=== PATIENT | female | born 1935 | race Caucasian/White ===

== ENCOUNTER 2024-08-20 16:17 | Outpatient (CLI) | payer MEDICARE, SELFPAY ==
[2024-08-20 16:52] LABS: Alanine Aminotransferase 7 U/L (0-33); Albumin Level 4.1 g/dL (3.5-5.2); Alkaline Phosphatase 84 U/L (35-105); Anion Gap 15.8 (5-19); Aspartate Amino Transferase 16 U/L (0-32); Blood Urea Nitrogen 26 mg/dL (8-23); Calcium 9.7 mg/dL (8.5-10.5); Carbon Dioxide 27 mmol/L (22-29); Chloride 105 mmol/L (98-107); Globulin 2.6 g/dL (1.3-4.6); Glucose 112 mg/dL (65-115); Osmolality Calculated 304 mOsm/kg (285-295); Potassium 3.8 mmol/L (3.5-5.1); Sodium 144 mmol/L (136-145); Total Bilirubin 0.2 mg/dL (0.15-1.2); Total Protein 6.7 g/dL (6.6-8.7)
== END 2024-08-20 16:18 | disposition home or self-care (01) ==
PROVIDERS: Visit Provider Family Medicine
DX: I10 Essential (primary) hypertension (principal)
CPT/HCPCS: 80053

== ENCOUNTER 2024-09-23 14:42 | Outpatient (CLI) | payer MEDICARE, SELFPAY ==
[2024-09-23 14:55] LABS: Bilirubin Urine Negative (Negative); Blood Urine Negative (Negative); Glucose Urine UA Negative (Normal); Ketones Urine Negative (Negative); Leukocyte Esterase Urine 2+ (Negative); Nitrate Urine Positive (Negative); Protein Urine Trace (Negative); Specific Gravity, Urine 1.015 (1.005-1.030); Urine Appearance Turbid (CLEAR); Urine Color Yellow (Yellow)
[2024-09-23 14:58] LABS: Add Urine Microscopic? YES; Bacteria Urine 4+ /hpf; Hyaline Casts Urine 1.65 /lpf; RBC Urine 0-2 /hpf (0-2); Squamous Epithelial Cell Urine 0-5 /hpf (0-5); WBC Urine >100 /hpf (0-5)
[2024-09-23 15:01] LABS: Add Urine Culture? No
== END 2024-09-23 14:43 | disposition home or self-care (01) ==
LOC: LAB 14:43
PROVIDERS: Visit Provider Family Medicine
DX: N39.0 Urinary tract infection, site not specified (principal)
CPT/HCPCS: 81001; 87077; 87086; 87186

== ENCOUNTER 2024-11-16 19:16 | Outpatient (CLI) | payer MEDICARE, SELFPAY ==
[2024-11-16 19:39] LABS: Bilirubin Urine Negative (Negative); Blood Urine Negative (Negative); Glucose Urine UA Negative (Normal); Ketones Urine Negative (Negative); Leukocyte Esterase Urine Negative (Negative); Nitrate Urine Positive (Negative); Protein Urine Negative (Negative); Urine Appearance Cloudy (CLEAR); Urine Color Yellow (Yellow)
[2024-11-16 19:48] LABS: Add Urine Microscopic? YES; Bacteria Urine 4+ /hpf; Hyaline Casts Urine 2.46 /lpf; Squamous Epithelial Cell Urine 0-5 /hpf (0-5)
[2024-11-16 19:58] LABS: UA Slide Review UA Slide Review Perf
[2024-11-16 19:59] LABS: Add Urine Culture? No
== END 2024-11-16 19:17 | disposition home or self-care (01) ==
PROVIDERS: PCP Family Medicine; Visit Provider Family Medicine
DX: N39.0 Urinary tract infection, site not specified (principal)
CPT/HCPCS: 81001; 87086

== ENCOUNTER 2024-11-30 17:09 | Outpatient (CLI) | payer MEDICARE, SELFPAY ==
[2024-11-30 18:00] LABS: Bilirubin Urine Negative (Negative); Blood Urine Negative (Negative); Glucose Urine UA Negative (Normal); Ketones Urine Trace (Negative); Leukocyte Esterase Urine Negative (Negative); Nitrate Urine Negative (Negative); Protein Urine 1+ (Negative); Specific Gravity, Urine 1.027 (1.005-1.030); Urine Appearance Turbid (CLEAR); Urine Color Yellow (Yellow)
[2024-11-30 18:07] LABS: Add Urine Microscopic? YES; Bacteria Urine 4+ /hpf; Hyaline Casts Urine 10.73 /lpf; Squamous Epithelial Cell Urine >100 /hpf (0-5)
[2024-11-30 18:21] LABS: Add Urine Culture? Yes; UA Slide Review UA Slide Review Perf
== END 2024-11-30 17:10 | disposition home or self-care (01) ==
PROVIDERS: PCP Family Medicine; Visit Provider Family Medicine
DX: N39.0 Urinary tract infection, site not specified (principal)
CPT/HCPCS: 81001; 87086

== ENCOUNTER 2024-12-07 08:46 | Outpatient (CLI) | payer MEDICARE, SELFPAY ==
[2024-12-07 09:03] LABS: Bilirubin Urine Negative (Negative); Blood Urine Negative (Negative); Glucose Urine UA Negative (Normal); Ketones Urine Trace (Negative); Leukocyte Esterase Urine Negative (Negative); Nitrate Urine Negative (Negative); Protein Urine Negative (Negative); Specific Gravity, Urine 1.022 (1.005-1.030); Urine Appearance Clear (CLEAR); Urine Color Yellow (Yellow); pH Urine 7.5 (5-7)
[2024-12-07 09:08] LABS: Add Urine Microscopic? YES; Bacteria Urine Trace /hpf; RBC Urine 0-2 /hpf (0-2); WBC Urine 0-5 /hpf (0-5)
== END 2024-12-07 08:47 | disposition home or self-care (01) ==
PROVIDERS: PCP Family Medicine; Visit Provider Family Medicine
DX: N39.0 Urinary tract infection, site not specified (principal)
CPT/HCPCS: 81001; 87086

== ENCOUNTER 2024-12-31 14:33 | Emergency (ER) | payer MEDICARE, OTHER, SELFPAY ==
[2024-12-31 14:35] VITALS: BP 177/86; PULSE 72; RESP 16; TEMP 36.5; O2SAT 96
--- NOTE | 2024-12-31 14:37 | CTR_ITS ---
PROCEDURE INFORMATION: Exam: CT Head Without Contrast Exam date and time: 12/31/2024 3:14 PM Age: 89 years old Clinical indication: Altered mental status/memory loss; Additional info: Encephalopathy, altered mental status TECHNIQUE: Imaging protocol: Computed tomography of the head without contrast. Radiation optimization: All CT scans at this facility use at least one of these dose optimization techniques: automated exposure control; mA and/or kV adjustment per patient size (includes targeted exams where dose is matched to clinical indication); or iterative reconstruction. COMPARISON: No relevant prior studies available. RADIATION DOSE METRICS: Total DLP (mGy-cm): 821.68 FINDINGS: Brain: No intracranial hemorrhage. No mass effect, edema or midline shift. There are vague areas of decreased attenuation within the periventricular white matter likely secondary to chronic microvascular changes. Mild age related cerebral volume loss resulting in prominence of cortical sulci. Asymmetrically widened subarachnoid space within the right basilar cisterns Lokelma longstanding and output 3 of clinical significance. Cerebral ventricles: Unremarkable for age and degree of cerebral volume loss. Paranasal sinuses: Visualized sinuses are unremarkable. No fluid levels. Mastoid air cells: Visualized mastoid air cells are well aerated. Bones/joints: Unremarkable. No acute fracture. Soft tissues: Unremarkable. CT/CT head wo con* [id number] IMPRESSION: No acute intracranial abnormality.
--- NOTE | 2024-12-31 14:38 | XR_ITS ---
WS: [id number] XR chest 1V portable [id number] REASON FOR EXAM: Weakness FINDINGS: No previous examination for comparison. Patient significantly rotated to the left. Heart tortuosity and mild ectasia of the thoracic aorta with calcification of the aortic arch. The heart is at the upper limits of normal in size. Masslike density with some lucency projected over the cardiac silhouette to the left of the spine. Presumably a hiatal or paraesophageal gastric hernia. No acute pulmonary parenchymal or pleural abnormality. Mild degenerative spondylosis in the thoracic spine for age. XR/XR chest 1V portable [id number] IMPRESSION: No acute chest abnormality.
--- NOTE | 2024-12-31 14:40 | ECG_ITS ---
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 Measurements Intervals [place] Rate: 70 P: 39 OR: 179 QRS: 52 QRSD: 85 T: 45 QT: 383 QTc: 415 Interpretive Statements SINUS RHYTHM NONSPECIFIC T-WAVE ABNORMALITY No previous ECG available for comparison Electronically Signed On 01-01-2025 18:01:31 EGG SORTER by Tesfaye Simmons M.D. [id number]
[2024-12-31 14:50] LABS: Basophils % 0.5 %; Eosinophils # 0.1 10^3/uL (0.0-0.8); Hematocrit 40.5 % (36-47); Lymphocytes # 2.6 10^3/uL (0.8-4.8); Lymphocytes % 43.9 %; Mean Corpuscular HGB Conc 31.4 g/dL (30-55); Mean Corpuscular Hemoglobin 29.8 pg (27-33); Mean Corpuscular Volume 95.1 fl (85-98); Mean Platelet Volume 10.4 fL (7.4-10.4); Monocytes # 0.4 10^3/uL (0.2-0.9); Monocytes % 6.4 %; Neutrophils % 46.9 %; Nucleated Red Blood Cells % 0 %; Platelet Count 218 10^3/cmm (157-399); Red Blood Count 4.26 10^6/uL (3.85-5.65); Red Cell Distribution Width 13.9 % (12.1-15.1); White Blood Count 5.97 10^3/uL (3.29-11.43)
[2024-12-31 15:05] LABS: Lactic Sepsis W/Reflex 1.2 mmol/L (0.5-2.2)
--- NOTE | 2024-12-31 15:17 | W.ED.AMS ---
HPI - Altered Mental Status General: Chief Complaint: Altered Mental Status Stated Complaint: ams Time Seen by Provider: 12/31/24 14:34 History of Present Illness: 89-year-old female with a history of advanced dementia and hypertension and chronic anticoagulation on Eliquis (I do not see any indication for this in her assisted documentation diagnoses), who presents to the emergency room apparently with some altered mental status. She seems alert. No focal motor deficits. She is complaining of a headache. Blood pressure slightly elevated. No abdominal pain. No chest pain. Related Data Home Medications ?Medication ?Instructions ?Recorded ?Confirmed acetaminophen 500 mg tablet 1,000 mg PO Q8H PRN Pain 12/31/24 12/31/24 apixaban 5 mg tablet (Eliquis) 5 mg PO BID 12/31/24 12/31/24 carbidopa 10 mg-levodopa 100 mg 1 tab PO TID 12/31/24 12/31/24 tablet hydrocodone 5 mg-acetaminophen 325 1 tab PO Q8H PRN Pain 12/31/24 12/31/24 mg tablet nystatin 100,000 unit/gram topical 1 applic topical Q4H 12/31/24 12/31/24 powder olanzapine 2.5 mg tablet 2.5 mg PO DAILY 12/31/24 12/31/24 potassium chloride 20 mEq 20 meq PO DAILY 12/31/24 12/31/24 tablet,extended release triamcinolone acetonide 0.1 % 1 applic topical BID 12/31/24 12/31/24 topical cream venlafaxine 75 mg tablet 75 mg PO BID 12/31/24 12/31/24 Allergies Allergy/AdvReac Type Severity Reaction Status Date / Time codeine Allergy Unknown Verified 12/31/24 14:41 Review of Systems Narrative: Constitutional symptoms: Negative except as documented in HPI. Skin symptoms: Negative except as documented in HPI. Eye symptoms: Negative except as documented in HPI. ENMT symptoms: Negative except as documented in HPI. Respiratory symptoms: Negative except as documented in HPI. Cardiovascular symptoms: Negative except as documented in HPI. Gastrointestinal symptoms: Negative except as documented in HPI. Genitourinary symptoms: Negative except as documented in HPI. Musculoskeletal symptoms: Negative except as documented in HPI. Neurologic symptoms: Negative except as documented in HPI. Psychiatric symptoms: Negative except as documented in HPI. Endocrine symptoms: Negative except as documented in HPI. Physical Exam Narrative: General: Alert, no acute distress. Skin: Warm, dry. Head: Normocephalic, atraumatic. Neck: Supple, trachea midline. Eye: Extraocular movements are intact. Ears, nose, mouth and throat: mucosa moist. Cardiovascular: Regular, Normal peripheral perfusion. Respiratory: Lungs are clear to auscultation, respirations are non-labored, breath sounds are equal, Symmetrical chest wall expansion. Gastrointestinal: Soft, Nontender, Non distended Musculoskeletal: Normal ROM, no deformity. Neurological: Alert and oriented, No focal neurological deficit observed. Psychiatric: Cooperative, appropriate mood & affect. Course Vital Signs: Vital signs: Vital Signs Temperature 97.7 F 12/31/24 14:35 Pulse Rate 75 12/31/24 17:30 Respiratory Rate 18 12/31/24 17:30 Blood Pressure 173/95 12/31/24 19:03 Pulse Oximetry 96 12/31/24 17:30 Oxygen Delivery Me thod Room Air 12/31/24 17:30 MDM - Altered Mental Status Medical Decision Making Medical decision making: Differential diagnosis including but not limited to and based on the above HPI, review of systems and physical exam: In this patient with altered mental status: Stroke. Hypoglycemia. Metabolic encephalopathy. Infections such as pneumonia, urinary tract infection, Covid-19, Influenza. Electrolyte abnormalities such as hypernatremia. Renal failure / uremia. Hepatic encephalopathy. Hypoxemia. Hypercapnic respiratory failure. Psychosis. Drug or alcohol intoxication. Medication overdose. Orders placed to evaluate differential diagnosis based on the above differential, HPI and physical exam EKG: Time 1440. Rate 70. Normal sinus rhythm, No ST-T changes, no ectopy, normal HI & QRS intervals, This was reviewed and interpreted by myself the ER physician at 1450. Chest x-ray: No acute process. No infiltrate. No pneumothorax. This was reviewed and interpreted by myself the emergency room physician. I also reviewed the radiology report. CT head: No acute intracranial process. no intracranial hemorrhage, no evidence of infarct. no evidence of acute fracture.This was reviewed and interpreted by myself the ER physician. Lab Review: Laboratory results were reviewed and interpreted by myself the emergency room physician. No leukocytosis. No anemia. No renal failure. No urinary tract infection. Flu COVID and RSV are negative I reviewed the patient's medical record. Reexamination: Patient remained stable. No increased work of breathing. No altered mental status. No focal motor deficits. Family states she seems to be back at her baseline but may be sundowning a little bit at this point. Assessment and plan: Altered mental status ? Patient seems to have resolved. No acute findings. - Discharged home - Discussed plan with patient. Answered any questions. - Evaluation and treatment of this problem were appropriate in the emergency setting. Lab Data 12/31/24 14:15 12/31/24 18:[address] 12/31/24 14:37 IMPRESSION: No acute intracranial abnormality. Chest X-Ray 12/31/24 14:38 IMPRESSION: No acute chest abnormality. Laboratory Results WBC 5.97 10^3/uL (3.29-11.43) 12/31/24 14:15 RBC 4.26 10^6/uL (3.85-5.65) 12/31/24 14:15 Hgb 12.70 g/dL (11.27-16.99) 12/31/24 14:15 Hct 40.5 % (36-47) 12/31/24 14:15 MCV 95.1 fl (85-98) 12/31/24 14:15 MCH 29.8 pg (27-33) 12/31/24 14:15 MCHC 31.4 g/dL (30-55) 12/31/24 14:15 RDW 13.9 % (12.1-15.1) 12/31/24 14:15 Plt Count 218 10^3/cmm (157-399) 12/31/24 14:15 MPV 10.4 fL (7.4-10.4) 12/31/24 14:15 Neut % (Auto) 46.9 % 12/31/24 14:15 Lymph % (Auto) 43.9 % 12/31/24 14:15 [place] % (Auto) 6.4 % 12/31/24 14:15 Eos % (Auto) 2.0 % 12/31/24 14:15 Baso % (Auto) 0.5 % 12/31/24 14:15 Neut # (Auto) 2.80 10^3/uL (1.8-7.7) 12/31/24 14:15 Lymph # (Auto) 2.6 10^3/uL (0.8-4.8) 12/31/24 14:15 [place] # (Auto) 0.4 10^3/uL (0.2-0.9) 12/31/24 14:15 Eos # (Auto) 0.1 10^3/uL (0.0-0.8) 12/31/24 14:15 Baso # (Auto) 0.0 10^3/uL (0.0-0.1) 12/31/24 14:15 Nucleated RBC % (auto) 0 % 12/31/24 14:15 Nucleated RBCs # 0.0 /100WBC 12/31/24 14:15 Sodium 140 mmol/L (136-145) 12/31/24 18:32 Potassium 3.3 mmol/L (3.5-5.1) L 12/31/24 18:32 Chloride 101 mmol/L (98-107) 12/31/24 18:32 Carbon Dioxide 27 mmol/L (22-29) 12/31/24 18:32 Anion Gap 15.3 (5-19) 12/31/24 18:32 BUN 16 mg/dL (8-23) 12/31/24 18:32 Creatinine 0.6 mg/dL (0.5-0.9) 12/31/24 18:32 GFR Calculation Not Reportable 12/31/24 18:32 Glucose 96 mg/dL (65-115) 12/31/24 18:32 Calculated Osmolality 291 mOsm/kg (285-295) 12/31/24 18:32 Lactic Acid 1.2 mmol/L (0.5-2.2) 12/31/24 14:15 Calcium 9.7 mg/dL (8.5-10.5) 12/31/24 18:32 Total Bilirubin 0.3 mg/dL (0.15-1.2) 12/31/24 18:32 AST 15 U/L (0-32) 12/31/24 18:32 ALT 8 U/L (0-33) 12/31/24 18:32 Alkaline Phosphatase 71 U/L (35-105) 12/31/24 18:32 C-Reactive Protein 3.0 mg/L (0.0-4.9) 12/31/24 14:15 Total Protein 7.1 g/dL (6.6-8.7) 12/31/24 18:32 Albumin 4.0 g/dL (3.5-5.2) 12/31/24 18:32 Globulin 3.1 g/dL (1.3-4.6) 12/31/24 18:32 Urine Color Yellow (Yellow) 12/31/24 15:50 Urine Appearance Clear (CLEAR) 12/31/24 15:50 Urine pH 7.5 (5-7) 12/31/24 15:50 Ur Specific [place] 1.005 (1.005-1.030) 12/31/24 15:50 Urine Protein Negative (Negative) 12/31/24 15:50 Urine Glucose (UA) Negative (Normal) 12/31/24 15:50 Urine Ketones Negative (Negative) 12/31/24 15:50 Urine Blood Negative (Negative) 12/31/24 15:50 Urine Nitrate Negative (Negative) 12/31/24 15:50 Urine Bilirubin Negative (Negative) 12/31/24 15:50 Urine Urobilinogen 0.2 mg/dL (Negative) 12/31/24 15:50 Ur Leukocyte Esterase Negative (Negative) 12/31/24 15:50 Urine RBC 0-2 /hpf (0-2) 12/31/24 15:50 Urine WBC 0-5 /hpf (0-5) 12/31/24 15:50 Ur Squamous Epith Cells 0-5 /hpf (0-5) 12/31/24 15:50 Amorphous Sediment Not Reportable 12/31/24 15:50 Urine Bacteria None seen /hpf (NONE) 12/31/24 15:50 Hyaline Casts 0-4 /lpf H 12/31/24 15:50 Influenza A (PCR) Negative (Negative) 12/31/24 15:45 Influenza Type B (PCR) Negative (Negative) 12/31/24 15:45 RSV (PCR) Negative (Negative) 12/31/24 15:45 SARS-CoV-2 (PCR) Negative (Negative) 12/31/24 15:45 All radiology interpretation(s) finalized by discharge Discharge Plan Discharge Patient Disposition: Home Clinical Impression: Altered mental status Condition: Stable Prescriptions: No Action venlafaxine 75 mg Tablet 75 mg PO BID hydrocodone-acetaminophen 5-325 mg Tablet 1 tab PO Q8H PRN (Reason: Pain) olanzapine 2.5 mg Tablet 2.5 mg PO DAILY acetaminophen 500 mg Tablet 1,000 mg PO Q8H PRN (Reason: Pain) triamcinolone acetonide 0.1 % Cream 1 applic TOPICAL BID Rx Instructions: apply a thin layer to affected area topically twice daily carbidopa-levodopa 10-100 mg Tablet 1 tab PO TID nystatin 100,000 unit/gram Powder 1 applic TOPICAL Q4H Rx Instructions: APPLY TO ABDOMINAL FOLD OR UNDERSIDE OF EACH BREAST EVERY 4 HOURS NEEDED FOR YEAST/REDNESS Eliquis 5 mg Tablet 5 mg PO BID potassium chloride 20 mEq Tablet Extended Release 20 meq PO DAILY Discharge Orders: Discharge ED (Routine); Ordered 12/31/24 Ordered By: Ingris Denis Referrals: Giuseppe Torres MD [Primary Care Provider] - Discharge Diet: Usual diet Discharge Activity: Increase activity as tolerated Patient Instructions: Altered Mental Status (ED), Opioid Safety, Pain Management Activity Restrictions/Additional Instructions: There are no acute findings on your workup to explain any kind of confusion. You appear to be back to your baseline. If anything worsens see your primary care provider or come back to the emergency room Thank you for choosing [facility] for your healthcare needs today. Please realize this is an emergency room and that we are providing you with a medical screening exam and this may not be complete and all inclusive of all the testing and or work up that you may need to determine your ailment or severity of your illness. You have been screened and evaluated and felt safe for discharge. Health conditions do change or evolve sometimes and as such it is important that you follow up with your Primary Doctor to be re checked, 3-5 days is a general good time frame for follow up. You are always welcome to return to the ED for re assessment if your symptoms are worsening or you have new concerns Print Language: [place] Coding Level of Care Code ED Ostomy Rn for Rachel Nelson
[2024-12-31 16:41] LABS: Bilirubin Urine Negative (Negative); Blood Urine Negative (Negative); Glucose Urine UA Negative (Normal); Ketones Urine Negative (Negative); Leukocyte Esterase Urine Negative (Negative); Nitrate Urine Negative (Negative); Protein Urine Negative (Negative); Specific Gravity, Urine 1.005 (1.005-1.030); Urine Appearance Clear (CLEAR); Urine Color Yellow (Yellow); Urobilinogen Urine 0.2 mg/dL (Negative); pH Urine 7.5 (5-7)
[2024-12-31 16:43] LABS: Bacteria Urine None Seen /hpf; Hyaline Casts Urine 0-4 /lpf; RBC Urine 0-2 /hpf (0-2); Squamous Epithelial Cell Urine 0-5 /hpf (0-5); WBC Urine 0-5 /hpf (0-5)
[2024-12-31 17:00] VITALS: BP 209/104
[2024-12-31 17:14] LABS: Influenza A NEGATIVE (Negative); Influenza B NEGATIVE (Negative); Respiratory Syncytial Virus Ce NEGATIVE (Negative); SARS-CoV-2 PCR NEGATIVE (Negative)
[2024-12-31 17:30] VITALS: BP 182/85; PULSE 75; RESP 18; O2SAT 96
[2024-12-31 18:00] VITALS: BP 178/99
[2024-12-31 19:00] LABS: Alanine Aminotransferase 8 U/L (0-33); Alkaline Phosphatase 71 U/L (35-105); Anion Gap 15.3 (5-19); Aspartate Amino Transferase 15 U/L (0-32); Blood Urea Nitrogen 16 mg/dL (8-23); Calcium 9.7 mg/dL (8.5-10.5); Carbon Dioxide 27 mmol/L (22-29); Chloride 101 mmol/L (98-107); Globulin 3.1 g/dL (1.3-4.6); Glucose 96 mg/dL (65-115); Osmolality Calculated 291 mOsm/kg (285-295); Potassium 3.3 mmol/L (3.5-5.1); Sodium 140 mmol/L (136-145); Total Bilirubin 0.3 mg/dL (0.15-1.2); Total Protein 7.1 g/dL (6.6-8.7)
[2024-12-31 19:03] VITALS: BP 173/95
[2024-12-31] MEDS: hyDRALAzine 20 mg/mL INJ 1 mL 10 MG IVP (19:08)
--- NOTE | 2024-12-31 19:14 | PC.NURSE ---
fpc update fpc called for an update at this time
[2024-12-31 20:59] VITALS: BP 160/80; PULSE 82; RESP 17; O2SAT 98
== END 2024-12-31 20:00 | disposition home or self-care (01) ==
PROVIDERS: Emergency Provider Emergency Medicine; PCP Family Medicine
DX: R41.82 Altered mental status, unspecified (principal); Z11.52 Encounter for screening for COVID-19; Z79.01 Long term (current) use of anticoagulants
CPT/HCPCS: 36415; 70450; 71045; 80053; 81001; 83605; 85025; 86140; 87040; 87637; 93005; 96374; 99285; J0360

== ENCOUNTER 2025-01-14 10:45 | Emergency (ER) | payer MEDICARE, SELFPAY ==
--- NOTE | 2025-01-14 10:46 | CTR_ITS ---
PROCEDURE INFORMATION: Exam: CT Head Without Contrast Exam date and time: 01/14/2025 11:31 AM Age: 89 years old Clinical indication: Injury or trauma; Blunt trauma (contusions or hematomas); Injury details: Fall; Head/neck pain; Hematoma to RT supraorbital area; AMS; Lt side body movement TECHNIQUE: Imaging protocol: Computed tomography of the head without contrast. Radiation optimization: All CT scans at this facility use at least one of these dose optimization techniques: automated exposure control; mA and/or kV adjustment per patient size (includes targeted exams where dose is matched to clinical indication); or iterative reconstruction. COMPARISON: CT head wo con* [id number] 12/31/2024 3:14 PM RADIATION DOSE METRICS: Total DLP (mGy-cm): 952.38 FINDINGS: Brain: No acute intracranial hemorrhage or abnormal intracranial mass effect is identified. No subdural collections are seen. There is generalized atrophy and there are chronic appearing small-vessel ischemic changes involving both cerebral hemispheres. Cerebral ventricles: The ventricles are stable size and position compared to 12/31/2024. No midline shift. Paranasal sinuses: Visualized portions of paranasal sinuses are well aerated. Mastoid air cells: Visualized portions of mastoid sinuses are not opacified. Bones: No obvious fracture of the cranium. Soft tissues: A right frontal supraorbital scalp hematoma is present. There is also a scalp hematoma at the vertex, immediately to the left of midline. CT/CT head wo con* [id number] IMPRESSION: No acute intracranial hemorrhage or mass effect.
--- NOTE | 2025-01-14 10:46 | CTR_ITS ---
PROCEDURE INFORMATION: Exam: CT Cervical Spine Without Contrast Exam date and time: 01/14/2025 11:35 AM Age: 89 years old Clinical indication: Injury or trauma; Blunt trauma; Injury details: Fall; Head/neck pain; Hematoma to RT supraorbital area; AMS; Lt side body movement TECHNIQUE: Imaging protocol: Computed tomography of the cervical spine without contrast. Radiation optimization: All CT scans at this facility use at least one of these dose optimization techniques: automated exposure control; mA and/or kV adjustment per patient size (includes targeted exams where dose is matched to clinical indication); or iterative reconstruction. COMPARISON: CT head wo con* [id number] 01/14/2025 11:31 AM RADIATION DOSE METRICS: Total DLP (mGy-cm): 952.38 FINDINGS: Bones: No fracture, malalignment or other acute abnormality is seen in the cervical spine. Chronic degenerative changes are present especially from C4-C7 with disc space narrowing and osteophytes. There is mild spinal stenosis at the C4-C5 and C5-C6 levels. Lungs: Lung apices are normal. Vasculature: Bilateral carotid artery calcification. Soft tissues: Unremarkable. CT/CT cervical spin wo con* [id number] IMPRESSION: No acute abnormality.
--- NOTE | 2025-01-14 10:47 | ECG_ITS ---
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 Measurements Intervals [place] Rate: 75 P: 38 [place]: 163 QRS: 75 QRSD: 85 T: 31 QT: 385 QTc: 432 Interpretive Statements SINUS RHYTHM NONSPECIFIC T-WAVE ABNORMALITY Compared to ECG 12/31/2024 14:40:25 No significant changes Electronically Signed On 01-15-2025 07:41:41 CDT by Tesfaey Simmons M.D. [id number]
--- NOTE | 2025-01-14 10:47 | W.ED.FALL ---
HPI - Fall General: Chief Complaint: Fall Stated Complaint: fall - head injury Time Seen by Provider: 01/14/25 10:46 History of Present Illness: 89-year-old female presents to the emergency room after ground-level mechanical fall at home. Patient has a history of Parkinson's she stumbled while coming urinary Denis she had fell she is also on anticoagulants she hit her head on a cabinet is a large hematoma at the hairline on the right side of her forehead she denies loss consciousness denies neck pain no vomiting. Associated symptoms-after fall: Denies abdominal pain, chest pain or neck pain Related Data Home Medications ?Medication ?Instructions ?Recorded ?Confirmed acetaminophen 500 mg tablet 1,000 mg PO Q8H PRN Pain 12/31/24 01/14/25 apixaban 5 mg tablet (Eliquis) 5 mg PO BID 12/31/24 01/14/25 carbidopa 10 mg-levodopa 100 mg 1 tab PO TID 12/31/24 01/14/25 tablet hydrocodone 5 mg-acetaminophen 325 1 tab PO Q8H PRN Pain 12/31/24 01/14/25 mg tablet nystatin 100,000 unit/gram topical 1 applic topical Q4H 12/31/24 01/14/25 powder olanzapine 2.5 mg tablet 2.5 mg PO DAILY 12/31/24 01/14/25 potassium chloride 20 mEq 20 meq PO DAILY 12/31/24 01/14/25 tablet,extended release triamcinolone acetonide 0.1 % 1 applic topical BID 12/31/24 01/14/25 topical cream venlafaxine 75 mg tablet 75 mg PO BID 12/31/24 01/14/25 Allergies Allergy/AdvReac Type Severity Reaction Status Date / Time codeine Allergy Unknown Verified 12/31/24 14:41 Review of Systems Const: Denies: fever(s) or chills Card: Denies: chest pain Resp: Denies: dyspnea GI: Denies: abdominal pain : Denies: dysuria, urinary frequency or urinary urgency Musc: Denies: neck pain or back pain Skin/Breast: Denies: rash Physical Exam Const: GENERAL APPEARANCE: cooperative ORIENTATION/CONSCIOUSNESS: Yes awake, Yes oriented to person, Yes oriented to place and Yes oriented to time HENMT: COMMON NORMALS: normocephalic and hearing grossly normal bilaterally HEAD & SCALP: normocephalic OTHER: Large hematoma at the hairline on the right forehead no lacerations Resp: COMMON NORMALS: normal respiratory effort, No retractions, No use of accessory muscles and clear to auscultation bilaterally AUSCULTATION: clear to auscultation bilaterally Cardio: COMMON NORMALS: regular rate, regular rhythm and No murmurs present (Cardio) RATE: regular rate RHYTHM: regular rhythm GI: COMMON NORMALS: Soft to palpation and No hepatosplenomegaly present AUSCULTATION: Yes normoactive bowel sounds PALPATION: Yes Soft to palpation, No Tenderness to palpation present (GI), No Guarding due to palpation present (GI) and Yes No hepatosplenomegaly present Extremity: COMMON NORMALS: normal to inspection, capillary refill normal, no clubbing, cyanosis or edema, no calf tenderness and no pedal edema Neuro: SENSORIUM/ORIENTATION: Yes oriented to person, Yes oriented to place and Yes oriented to time Skin: COMMON NORMALS: no rashes or lesions noted GENERAL SKIN EXAM: no rashes or lesions noted Course Vital Signs: Vital signs: Vital Signs Temperature 98.2 F 01/14/25 10:48 Pulse Rate 77 01/14/25 13:36 Respiratory Rate 16 01/14/25 13:36 Blood Pressure 185/94 01/14/25 13:36 Pulse Oximetry 98 01/14/25 13:36 Oxygen Delivery Me thod Room Air 01/14/25 10:55 MDM - Fall Medical Decision Making CT of the head and neck are negative for acute fracture will discharge patient home discussed that a lot of the swelling and blood in the skin will settle in and around the eye will be a lot of bruising and swelling may be difficult to open the eye. There [facility] follow-up with primary care Medical Records I reviewed the patient's medical records. Lab Data I reviewed the patient's lab results. 01/14/25 11:09 01/14/25 11:09 Radiology Impressions Cervical Spine CT 01/14/25 10:46 IMPRESSION: No acute abnormality. Head CT 01/14/25 10:46 IMPRESSION: No acute intracranial hemorrhage or mass effect. Laboratory Results WBC 5.27 10^3/uL (3.29-11.43) 01/14/25 11:09 RBC 3.97 10^6/uL (3.85-5.65) 01/14/25 11:09 Hgb 11.90 g/dL (11.27-16.99) 01/14/25 11:09 Hct 38.4 % (36-47) 01/14/25 11:09 MCV 96.7 fl (85-98) 01/14/25 11:09 MCH 30.0 pg (27-33) 01/14/25 11:09 MCHC 31.0 g/dL (30-55) 01/14/25 11:09 RDW 13.4 % (12.1-15.1) 01/14/25 11:09 Plt Count 228 10^3/cmm (157-399) 01/14/25 11:09 MPV 10.5 fL (7.4-10.4) H 01/14/25 11:09 Neut % (Auto) 53.9 % 01/14/25 11:09 Lymph % (Auto) 38.3 % 01/14/25 11:09 [place] % (Auto) 6.1 % 01/14/25 11:09 Eos % (Auto) 1.1 % 01/14/25 11:09 Baso % (Auto) 0.4 % 01/14/25 11:09 Neut # (Auto) 2.84 10^3/uL (1.8-7.7) 01/14/25 11:09 Lymph # (Auto) 2.0 10^3/uL (0.8-4.8) 01/14/25 11:09 [place] # (Auto) 0.3 10^3/uL (0.2-0.9) 01/14/25 11:09 Eos # (Auto) 0.1 10^3/uL (0.0-0.8) 01/14/25 11:09 Baso # (Auto) 0.0 10^3/uL (0.0-0.1) 01/14/25 11:09 Nucleated RBC % (auto) 0 % 01/14/25 11:09 Nucleated RBCs # 0.0 /100WBC 01/14/25 11:09 Sodium 139 mmol/L (136-145) 01/14/25 11:09 Potassium 3.7 mmol/L (3.5-5.1) 01/14/25 11:09 Chloride 104 mmol/L (98-107) 01/14/25 11:09 Carbon Dioxide 24 mmol/L (22-29) 01/14/25 11:09 Anion Gap 14.7 (5-19) 01/14/25 11:09 BUN 16 mg/dL (8-23) 01/14/25 11:09 Creatinine 0.8 mg/dL (0.5-0.9) 01/14/25 11:09 GFR Calculation Not Reportable 01/14/25 11:09 Glucose 101 mg/dL (65-115) 01/14/25 11:09 Calculated Osmolality 289 mOsm/kg (285-295) 01/14/25 11:09 Calcium 9.6 mg/dL (8.5-10.5) 01/14/25 11:09 Total Bilirubin 0.3 mg/dL (0.15-1.2) 01/14/25 11:09 AST 13 U/L (0-32) 01/14/25 11:09 ALT < 5 U/L (0-33) 01/14/25 11:09 Alkaline Phosphatase 68 U/L (35-105) 01/14/25 11:09 Total Protein 7.1 g/dL (6.6-8.7) 01/14/25 11:09 Albumin 3.7 g/dL (3.5-5.2) 01/14/25 11:09 Globulin 3.4 g/dL (1.3-4.6) 01/14/25 11:09 All radiology interpretation(s) finalized by discharge Discharge Plan Discharge Patient Disposition: Home Clinical Impression: Fall, Hematoma of frontal scalp Condition: Stable Prescriptions: No Action venlafaxine 75 mg Tablet 75 mg PO BID hydrocodone-acetaminophen 5-325 mg Tablet 1 tab PO Q8H PRN (Reason: Pain) olanzapine 2.5 mg Tablet 2.5 mg PO DAILY acetaminophen 500 mg Tablet 1,000 mg PO Q8H PRN (Reason: Pain) triamcinolone acetonide 0.1 % Cream 1 applic TOPICAL BID Rx Instructions: apply a thin layer to affected area topically twice daily carbidopa-levodopa 10-100 mg Tablet 1 tab PO TID nystatin 100,000 unit/gram Powder 1 applic TOPICAL Q4H Rx Instructions: APPLY TO ABDOMINAL FOLD OR UNDERSIDE OF EACH BREAST EVERY 4 HOURS NEEDED FOR YEAST/REDNESS Eliquis 5 mg Tablet 5 mg PO BID potassium chloride 20 mEq Tablet Extended Release 20 meq PO DAILY Discharge Orders: Discharge ED (Routine); Ordered 01/14/25 Ordered By: Michele Brown Referrals: Giuseppe Torres MD [Primary Care Provider] - Discharge Diet: Usual diet Discharge Activity: Increase activity as tolerated Patient Instructions: Opioid Safety, Pain Management Activity Restrictions/Additional Instructions: Thank you for choosing [facility] for your healthcare needs today. It is very important that you follow up as instructed or that you return to the Emergency Department should you have concerns or if your condition changes or worsens in any way. You were seen in the emergency room after a fall. Scan of your head and neck were negative your laboratory test did not show significant abnormality. The bruising on the upper right side of your forehead will cause some swelling and bruising appearance in the eye as the blood settles this is not unusual for this type of injury. You can improve it some with applying ice or cold compresses to the area. Follow-up with your primary care doctor as needed. Print Language: Ugandan Coding Level of Care Code ED Hospice Case Manager for Rachel Nelson
[2025-01-14 10:48] VITALS: BP 152/85; PULSE 76; RESP 16; TEMP 36.8; O2SAT 92; BMI 28.3
[2025-01-14 10:55] VITALS: BP 152/85; PULSE 75; O2SAT 97
--- NOTE | 2025-01-14 11:05 | PC.PHAR ---
Pt is from [facility]
[2025-01-14 11:44] LABS: Basophils % 0.4 %; Eosinophils # 0.1 10^3/uL (0.0-0.8); Eosinophils % 1.1 %; Hematocrit 38.4 % (36-47); Lymphocytes % 38.3 %; Mean Corpuscular Volume 96.7 fl (85-98); Mean Platelet Volume 10.5 fL (7.4-10.4); Monocytes # 0.3 10^3/uL (0.2-0.9); Monocytes % 6.1 %; Neutrophils # 2.84 10^3/uL (1.8-7.7); Neutrophils % 53.9 %; Nucleated Red Blood Cells % 0 %; Platelet Count 228 10^3/cmm (157-399); Red Blood Count 3.97 10^6/uL (3.85-5.65); Red Cell Distribution Width 13.4 % (12.1-15.1); White Blood Count 5.27 10^3/uL (3.29-11.43)
[2025-01-14 12:00] LABS: Alanine Aminotransferase < 5 U/L (0-33); Albumin Level 3.7 g/dL (3.5-5.2); Alkaline Phosphatase 68 U/L (35-105); Aspartate Amino Transferase 13 U/L (0-32); Blood Urea Nitrogen 16 mg/dL (8-23); Calcium 9.6 mg/dL (8.5-10.5); Carbon Dioxide 24 mmol/L (22-29); Chloride 104 mmol/L (98-107); Creatinine Clr Calc Pharmacy 50.8724; Globulin 3.4 g/dL (1.3-4.6); Glucose 101 mg/dL (65-115); Osmolality Calculated 289 mOsm/kg (285-295); Sodium 139 mmol/L (136-145); Total Bilirubin 0.3 mg/dL (0.15-1.2); Total Protein 7.1 g/dL (6.6-8.7)
[2025-01-14 12:40] LABS: Anion Gap 14.7 (5-19); Potassium 3.7 mmol/L (3.5-5.1)
[2025-01-14 12:43] VITALS: BP 189/84
[2025-01-14 13:04] VITALS: BP 185/94; O2SAT 99
[2025-01-14 13:36] VITALS: BP 185/94; PULSE 77; RESP 16; O2SAT 98
== END 2025-01-14 13:41 | disposition home or self-care (01) ==
PROVIDERS: Emergency Provider Family Medicine; PCP Family Medicine
DX: S00.03XA Contusion of scalp, initial encounter (principal); W19.XXXA Unspecified fall, initial encounter; Z79.01 Long term (current) use of anticoagulants
CPT/HCPCS: 36415; 70450; 72125; 80053; 85025; 93005; 99284

== ENCOUNTER 2025-02-20 14:26 | Outpatient (CLI) | payer MEDICARE, SELFPAY ==
[2025-02-20 14:49] LABS: Bilirubin Urine Negative (Negative); Blood Urine Negative (Negative); Glucose Urine UA Negative (Normal); Ketones Urine Negative (Negative); Leukocyte Esterase Urine 2+ (Negative); Nitrate Urine Negative (Negative); Protein Urine Negative (Negative); Specific Gravity, Urine 1.017 (1.005-1.030); Urine Appearance Cloudy (CLEAR); Urine Color Yellow (Yellow)
[2025-02-20 14:56] LABS: Add Urine Microscopic? YES; Bacteria Urine 4+ /hpf; Hyaline Casts Urine 2.05 /lpf; WBC Urine 51-100 /hpf (0-5)
== END 2025-02-20 14:27 | disposition home or self-care (01) ==
LOC: LAB 14:28
PROVIDERS: PCP Family Medicine; Visit Provider Family Medicine
DX: N39.0 Urinary tract infection, site not specified (principal)
CPT/HCPCS: 81001; 87086

== ENCOUNTER → 2025-03-02 10:43 | Outpatient (BNVA) | payer MEDICARE, SELFPAY | PROVIDERS: PCP Family Medicine; Visit Provider Podiatrist Foot & Ankle Surgery | DX: I73.9 Peripheral vascular disease, unspecified (principal); L60.3 Nail dystrophy | CPT/HCPCS: 11721; 99203 ==

== ENCOUNTER 2025-06-13 10:44 | Outpatient (CLI) | payer MEDICARE, SELFPAY ==
[2025-06-13 11:08] LABS: Hematocrit 39.8 % (36-47); Hemoglobin 12.50 g/dL (11.27-16.99); Mean Corpuscular HGB Conc 31.4 g/dL (30-55); Mean Corpuscular Hemoglobin 30.1 pg (27-33); Mean Corpuscular Volume 95.9 fl (85-98); Nucleated Red Blood Cells % 0 %; Platelet Count 256 10^3/cmm (157-399); Red Blood Count 4.15 10^6/uL (3.85-5.65); White Blood Count 5.71 10^3/uL (3.29-11.43)
[2025-06-13 11:39] LABS: Alanine Aminotransferase 13 U/L (0-33); Albumin Level 4.2 g/dL (3.5-5.2); Alkaline Phosphatase 76 U/L (35-105); Anion Gap 14.2 (5-19); Aspartate Amino Transferase 13 U/L (0-32); Blood Urea Nitrogen 22 mg/dL (8-23); Calcium 9.8 mg/dL (8.5-10.5); Carbon Dioxide 28 mmol/L (22-29); Chloride 105 mmol/L (98-107); Cholesterol 277 mg/dL (0-200); Globulin 2.8 g/dL (1.3-4.6); Glucose 91 mg/dL (65-115); HDL Cholesterol 61 mg/dL (60-100); Osmolality Calculated 299 mOsm/kg (285-295); Potassium 4.2 mmol/L (3.5-5.1); Sodium 143 mmol/L (136-145); Total Protein 7.0 g/dL (6.6-8.7); Triglycerides 115 mg/dL (0-150)
== END 2025-06-13 10:45 | disposition home or self-care (01) ==
PROVIDERS: PCP Family Medicine; Visit Provider Family Medicine
DX: I10 Essential (primary) hypertension (principal)
CPT/HCPCS: 80053; 80061; 85025

== ENCOUNTER 2025-07-31 17:47 | Emergency (ER) | payer MEDICARE, SELFPAY ==
[2025-07-31 17:50] VITALS: BP 192/118; PULSE 69; RESP 16; TEMP 36.8; O2SAT 97; BMI 25.0
--- NOTE | 2025-07-31 17:50 | XRR_ITS ---
PROCEDURE INFORMATION: Exam: XR Chest Exam date and time: 07/31/2025 5:51 PM Age: 89 years old Clinical indication: Cough; Additional info: Fall TECHNIQUE: Imaging protocol: Radiologic exam of the chest. Views: 1 view. COMPARISON: CR XR chest 1V portable [id number] 12/31/2024 2:44 PM FINDINGS: Lungs: Limited evaluation of the left lower lung due to presence of the heart and hiatal hernia projected on the left. This is present previously and maybe related to scoliosis, slumping of the patient and some rotation. Still allowing for this there is increased density in the left lower lobe suspicious for consolidation or atelectasis . Right lung is clear. Pleural spaces: Unremarkable. No pleural effusion. No pneumothorax. Heart/Mediastinum: Borderline heart size. Stable tortuosity thoracic aorta. Pulmonary vascularity normal. Bones/joints: Right convexity thoracic scoliosis with degenerative changes. Upper abdomen: Surgical clips gallbladder fossa. Otherwise unremarkable. XR/XR chest 1V portable [id number] IMPRESSION: 1. Hiatal hernia. 2. Borderline heart size. 3. When compared to previous study appearance of the increased density left lower lung suspicious for consolidation or atelectasis
--- NOTE | 2025-07-31 17:50 | XRR_ITS ---
PROCEDURE INFORMATION: Exam: XR Right Hip Exam date and time: 07/31/2025 5:51 PM Age: 89 years old Clinical indication: Hip pain; Right hip; Additional info: Fall TECHNIQUE: Imaging protocol: Radiologic exam of the right hip. Views: 1 view hip with pelvis when performed. COMPARISON: No relevant prior studies available. FINDINGS: Bones/joints: Demineralization consistent with the patient's age. Symmetric degenerative changes superolateral acetabula. Prominent lateral protuberances be seen with femoroacetabular impingement enthesophytes greater trochanters. Degenerative changes pubic bones at symphysis pubis , SI joints, and lower lumbar spine. No acute appearing bony abnormalities are demonstrated. Soft tissues: Unremarkable. XR/XR hip RT 2-3V wo/w pel* [id number] IMPRESSION: 1. Demineralization consistent with patient's age. 2. Degenerative changes. 3. No acute appearing bony abnormalities are evident.
--- OUTSIDE RECORDS SUMMARY | 2025-07-31 17:54 | XMS_ITS | Data Portability ---
Author Organization LIO Janice Carbajal [facility], [facility] Address [address] [place] [address] Care Team Providers Care Switchboard Operator Name Role Phone SHITAL PANDEY Primary Care Provider [phone] SHITAL PANDEY Referring Provider [facility] OTHER Assessment No assessment recorded. Plan of Treatment Reminders Order Date Submit Date Provider Last Modified By Organization Details Last Modified Time Details Appointments None recorded. Lab CBC w/ auto diff 2022 023 [email or web address] Caret ([facility]), [address] [place] [address] [place], [address], 13:53:03 CMP, serum or plasma 2022 023 [email or web address] Caret ([facility]), [address] [place] [address] [place], [address], 3 13:53:03 hemoglobin A1c, QN, blood 2022 023 [email or web address] Caret ([facility]), [address] [place] [address] [place], [address], 3 17:42:31 CBC w/ auto diff 2022 023 [email or web address] Caret ([facility]), [address] [place] [address] [place], [address], 3 17:42:32 CMP, serum or plasma 2022 023 [email or web address] Caret ([facility]), [address], [place], [address], 3 17:42:32 lipid panel, serum 2022 023 [email or web address] Caret ([facility]), [address], [place], [address], 3 11:30:01 thyrotropi n, quant, blood [address] ([facility]), [address] [facility] [address]ames[address], [place], [address], 3 17:42:32 T4, free, serum 2022 023 [email or web address] Caret ([facility]), [address], [place], [address], 3 13:24:51 pro BNP (pro B-type natriureti c peptide), serum or plasma 2022 023 [facility] Caret ([facility]), [address] [facility] [place], [address], 3 17:42:32 vitamin D, 25-hydroxy , total, serum 2022 023 [email or web address] Caret ([facility]), [address] [place], [address], 3 17:42:33 vitamin B1 (thiamine) , serum 2021 022 [email or web address] Caret ([facility]), [address] [place], [address], 2 12:05:39 vitamin B2 (riboflavi n), blood [address] ([facility]), [address], [place], [address], 2 12:05:39 vitamin B6 (pyridoxin e), plasma [address] ([facility]), [address], [place], [address], 2 12:05:39 zinc, serum or plasma [address] ([facility]), [address] [facility] [address], [place], [address], 2 12:05:39 CBC w/ auto diff [address] ([facility]), [address] [facility] [address], [place], [address], 2 11:45:15 CMP, serum or plasma [address] ([facility]), [address] [facility] [address], [place], [address], 2 11:45:15 lipid panel, serum 2021 NOEMY Caret ([facility]), [address], [place], [address], 2 14:58:16 hemoglobin A1c, QN, blood [address] ([facility]), [address] [facility] [address], [place], [address], 2 11:45:15 thyrotropi n, quant, blood [address] ([facility]), [address], [place], [address], 2 11:45:16 vitamin D, 25-hydroxy , total, serum 2021 022 [email or web address] Caret ([facility]), [address], [place], [address], 2 11:45:16 Referral home health referral 2022 023 [facility], [address], [address], [place], [address], 3 17:15:46 orthopedic surgeon referral - getting XR outpatient at [facility] 2022 023 [email or web address] [facility], [address], [place], [address], 3 11:14:29 home health referral 2021 022 NOEMY [facility], [address], [address], [place], [address], 2 14:15:48 physical therapist referral 2021 022 NOEMY [facility], [address], [address], [place], [address], 2 10:06:24 occupation al therapist referral 2021 022 [facility], [address], [address], [place], [address], 2 10:05:08 Procedures None recorded. Surgeries None recorded. Imaging XR, knee, 3 view 2022 023 [email or web address] Caret ([facility]) Imaging, [facility] [address] Ramesh, [place], [address], 3 08:19:08 XR, hip, unilateral , 2 or 3 view 2022 023 [email or web address] Caret ([facility]) Imaging, [address] [place] [address] Jorge Ramesh, [place], [address], 3 08:18:53 XR, knee, 3 view - RIGHT 2022 023 [facility]) Imaging, [address] [place] [address] Jorge Ramesh, [place], [address], 3 20:39:09 XR, hip, unilateral , 2 or 3 view 2022 023 [email or web address] Caret ([facility]) Imaging, [address] [place] [address] Jorge Ramesh, [place], [address], 3 08:19:28 Medication Orders ketoconazo le 2 % shampoo 2022 023 [facility], [address] [facility] [place], [id number], 3 11:58:02 Bactrim DS 800 mg-160 mg tablet 2022 023 [email or web address] [facility], [address] [place], [id number], 3 15:01:35 ceftriaxon e 1 gram solution for injection 2022 023 [email or web address] Not available 3 15:01:39 mupirocin 2 % topical ointment 2022 023 [facility], 1 [facility], [place], [id number], 3 18:31:06 Patient TargetsNo targets recorded. Patient Instructions Encounter Date Encounter Id Patient Instructions Last Modified By Organization Details Last Modified Time 08/20/2022 [id number] Patient instruct ed to return to clinic if new symptoms occur or current symptoms persist or worsen Patient instructed to go to nearest ED or call 911 if symptoms suddenly severely worsen Your prescription has been sent to your pharmacy. [email or web address] Not available 08/20/2022 13:07:24 Patient states understanding of treatment plan Medication side effects discussed Medication compliance discussed Patient left office independently and ambulatory [email or web address] Not available 08/20/2022 13:07:31 03/28/2023 [id number] Return to clinic as indicated below, any new or worsening symptoms Follow up as needed and routine annual visit Patient states understanding of treatment plan Medication side effects discussed Medication compliance discussed Patient left office independently and ambulatory Discharged home [email or web address] Not available 03/28/2023 18:22:52 04/30/2023 [id number] medicines to luis id with kidney disease: care instructions lcinel Not available 04/30/2023 15:18:50 Patient instruct ed to return to clinic if new symptoms occur or current symptoms persist or worsen Patient instructed to go to nearest ED or call 911 if symptoms suddenly severely worsen Your prescription has been sent to your pharmacy. [email or web address] Not available 04/30/2023 15:38:51 Patient states understanding of treatment plan Medication side effects discussed Medication compliance discussed Patient discharged to home and left office independently and ambulatory in stable condition [email or web address] Not available 04/30/2023 15:39:18 08/04/2023 [id number] medicines to luis id with kidney disease: care instructions lcinel Not available 08/04/2023 14:15:16 high blood pressure: care instructions lcinel Not available 08/04/2023 14:15:16 learning about high blood pressure lcinel Not available 08/04/2023 14:15:16 Patient instruct ed to return to clinic if new symptoms occur or current symptoms persist or worsen Patient instructed to go to nearest ED or call 911 if symptoms suddenly severely worsen Your prescription has been sent to your pharmacy. lcinel Not available 08/04/2023 14:15:26 Patient states understanding of treatment plan Medication side effects discussed Medication compliance discussed Patient discharged to home and left office independently and ambulatory in stable condition lcinel Not available 08/04/2023 14:15:31 Reason for Referral Home Health Referral for Dem entia Referring Physician: Family Freda Kumar, Encounter Date: 08/20/2022 Physical Therapist Referral for Dementia Referring Physician: Family Freda Kumar, Encounter Date: 08/20/2022 Occupational Therapist Refer ral for Dementia Referring Physician: Family Freda Kumar, Encounter Date: 08/20/2022 Orthopedic Surgeon Referral for Pain of right knee joint getting XR outpatient at [facility] Referring Physician: Family Freda Kumar, Encounter Date: 04/30/2023 Home Health Referral for Ess ential hypertension Referring Physician: Family Freda Kumar, Encounter Date: 08/04/2023 Results Created Date Observation Date Name Description Value Unit Range Abnormal Flag Note LastModifiedBy Organization Detail LastModifiedTime 08/20/2008/20/2022 CBC W AUTO DIFFE RENTI AL PANEL - BLOOD leukocytes [#/volume] in blood by automated count 7.3 10*3/ uL 4.5-11 .0 1250, 08/20 Not Available [address], [address], 08/20/2022 13:59:22 08/20/20 22 08/20/2022 CBC W AUTO DIFFE RENTI AL PANEL - BLOOD erythrocytes [#/volume] in blood by automated count 3.98 10*6/ uL 4.2-5. 4 low Not Available [address], [address], 08/20/2022 13:59:22 08/20/20 22 08/20/2022 CBC W AUTO DIFFE RENTI AL PANEL - BLOOD hemoglobin [mass/volume ] in blood 12.1 g/dL 12.0-1 6.0 Not Available [address], [address], 08/20/2022 13:59:22 08/20/20 22 08/20/2022 CBC W AUTO DIFFE RENTI AL PANEL - BLOOD HCT vfr bld auto 38.3 % 36.0-4 8.0 Not Available [address], [facility] [place], [address], 08/20/2022 13:59:22 08/20/20 22 08/20/2022 CBC W AUTO DIFFE RENTI AL PANEL - BLOOD MCV [entitic volume] by automated count 96.2 fL 80-100 Not Available [address], [facility] [place], [address], 08/20/2022 13:59:22 08/20/20 22 08/20/2022 CBC W AUTO DIFFE RENTI AL PANEL - BLOOD MCH [entitic mass] by automated count 30.4 pg 27-32 Not Available [address], [facility] [place], [address], 08/20/2022 13:59:22 08/20/20 22 08/20/2022 CBC W AUTO DIFFE RENTI AL PANEL - BLOOD MCHC [mass/volume ] by automated count 31.6 g/dL 31.0-3 7.0 Not Available [address], [facility] [place] [place], [address], 08/20/2022 13:59:22 08/20/20 22 08/20/2022 CBC W AUTO DIFFE RENTI AL PANEL - BLOOD erythrocyte distribution width [ratio] by automated count 13.3 % 12-14. 5 Not Available [address], [facility] [place], [address], 08/20/2022 13:59:22 08/20/20 22 08/20/2022 CBC W AUTO DIFFE RENTI AL PANEL - BLOOD platelets [#/volume] in blood by automated count 227 10*3/ uL 150-45 0 1250, 08/20 Not Available [address] [place], [address], 08/20/2022 13:59:22 08/20/20 22 08/20/2022 CBC W AUTO DIFFE RENTI AL PANEL - BLOOD platelet mean volume [entitic volume] in blood by automated count 10.4 fL 9.1-13 .2 Not Available [address], [facility] [place], [address], 08/20/2022 13:59:22 08/20/20 22 08/20/2022 CBC W AUTO DIFFE RENTI AL PANEL - BLOOD segmented neutrophils/ 100 leukocytes in blood by automated count 63.6 % 40-70 Not Available [address], [facility] [place], [address], 08/20/2022 13:59:22 08/20/20 22 08/20/2022 CBC W AUTO DIFFE RENTI AL PANEL - BLOOD lymphocytes/ 100 leukocytes in blood by flow cytometry (fc) 29.3 % 20-44 Not Available [address], [facility] [place], [address], 08/20/2022 13:59:22 08/20/20 22 08/20/2022 CBC W AUTO DIFFE RENTI AL PANEL - BLOOD monocytes/10 0 leukocytes in blood by automated count 4.9 % 2-9 Not Available [address], [facility] [place], [address], 08/20/2022 13:59:22 08/20/20 22 08/20/2022 CBC W AUTO DIFFE RENTI AL PANEL - BLOOD eosinophils/ 100 leukocytes in blood by automated count 1.8 % 0-4 Not Available [address], [facility] [place], [address], 08/20/2022 13:59:22 08/20/2017 0808/20/2022 CBC W AUTO DIFFE RENTI AL PANEL - BLOOD basophils/10 0 leukocytes in blood by automated count 0.3 % 0-1 Not Available [address], [place], [address], 08/20/2022 13:59:22 08/20/20 22 08/20/2022 CBC W AUTO DIFFE RENTI AL PANEL - BLOOD neutrophils [#/volume] in blood by automated count 4.66 10*3/ uL 1.8-7. 7 Not Available [address], [place], [address], 08/20/2022 13:59:22 08/20/20 22 08/20/2022 CBC W AUTO DIFFE RENTI AL PANEL - BLOOD lymphocytes [#/volume] in blood by automated count 2.15 10*3/ uL 0.9-4. 8 Not Available [address], [place], [address], 08/20/2022 13:59:22 08/20/20 22 08/20/2022 CBC W AUTO DIFFE RENTI AL PANEL - BLOOD monocytes [#/volume] in blood by automated count 0.4 10*3/ uL 0-0.8 Not Available [address], [place], [address], 08/20/2022 13:59:22 08/20/20 22 08/20/2022 CBC W AUTO DIFFE RENTI AL PANEL - BLOOD eosinophils [#/volume] in blood by automated count 0.13 10*3/ uL 0-0.7 Not Available [address], [place], [address], 08/20/2022 13:59:22 08/20/20 22 08/20/2022 CBC W AUTO DIFFE RENTI AL PANEL - BLOOD basophils [#/volume] in blood by automated count 0.02 10*3/ uL 0-0.2 Not Available [address], [place], [address], 08/20/2022 13:59:22 08/20/20 22 08/20/2022 CBC W AUTO DIFFE RENTI AL PANEL - BLOOD immature granulocytes [presence] in blood by automated count 0.1 % 0-0.7 Not Available [address], [place], [address], 08/20/2022 13:59:22 08/20/20 22 08/20/2022 CBC W AUTO DIFFE RENTI AL PANEL - BLOOD immature granulocytes [#/volume] in blood 0.01 10*3/ uL 0.00-0 .06 Not Available [address], [facility] [place] [place], [address], 08/20/2022 13:59:22 08/20/20 22 08/20/2022 COMPR EHENS SHERINE METAB OLIC 2000 PANEL - SERUM OR PLASM A glomerular filtration rate/1.73 sq M.predicted [volume rate/area] in serum, plasma or blood by creatinine-b ased formula (CKD-epi) 55.0 mL 90.0-1 20 Not Available [address], [facility] [place], [address], 08/20/2022 14:58:15 08/20/20 22 08/20/2022 COMPR EHENS SHERINE METAB OLIC 2000 PANEL - SERUM OR PLASM A glucose [mass/volume ] in serum or plasma 140 mg/dL 74-106 high Not Available [address], [facility] [place], [address], 08/20/2022 14:58:15 08/20/20 22 08/20/2022 COMPR EHENS SHERINE METAB OLIC 2000 PANEL - SERUM OR PLASM A urea nitrogen [mass/volume ] in serum or plasma 22 mg/dL 7-17 high Not Available [address], [place], [address], 08/20/2022 14:58:15 08/20/20 22 08/20/2022 COMPR EHENS SHERINE METAB OLIC 1999 PANEL - SERUM OR PLASM A creatinine [mass/volume ] in serum or plasma 1.0 mg/dL 0.7-1. 2 Not Available [address], [place], [place], [address], 08/20/2022 14:58:15 08/20/20 22 08/20/2022 COMPR EHENS SHERINE METAB OLIC 1999 PANEL - SERUM OR PLASM A urea nitrogen/cre atinine [mass ratio] in blood 22.0 % 12-20 high Not Available [address], [place], [place], [address], 08/20/2022 14:58:15 08/20/20 22 08/20/2022 COMPR EHENS SHERINE METAB OLIC 1999 PANEL - SERUM OR PLASM A sodium [moles/volum e] in serum or plasma 141 mmol/ L 137-14 5 Not Available [address], [place], [place], [address], 08/20/2022 14:58:15 08/20/20 22 08/20/2022 COMPR EHENS SHERINE METAB OLIC 1999 PANEL - SERUM OR PLASM A potassium [moles/volum e] in serum or plasma 3.4 mmol/ L 3.5-5. 1 low Not Available [address], [place], [place], [address], 08/20/2022 14:58:15 08/20/20 22 08/20/2022 COMPR EHENS SHERINE METAB OLIC 1999 PANEL - SERUM OR PLASM A chloride [moles/volum e] in serum or plasma 106 mmol/ L 98-107 Not Available [address], [place], [address], 08/20/2022 14:58:15 08/20/20 22 08/20/2022 COMPR EHENS SHERINE METAB OLIC 2000 PANEL - SERUM OR PLASM A carbon dioxide, total [moles/volum e] in serum or plasma 30 mmol/ L 22-30 Not Available [address], [place], [address], 08/20/2022 14:58:15 08/20/20 22 08/20/2022 COMPR EHENS SHERINE METAB OLIC 2000 PANEL - SERUM OR PLASM A calcium [mass/volume ] in blood 9.5 mg/dL 8.4-10 .2 Not Available [address], [place], [address], 08/20/2022 14:58:15 08/20/20 22 08/20/2022 COMPR EHENS SHERINE METAB OLIC 2000 PANEL - SERUM OR PLASM A anion gap in serum or plasma 8.4 mmol/ L 11.0-2 0.0 low Not Available [address], [place], [address], 08/20/2022 14:58:15 08/20/20 22 08/20/2022 COMPR EHENS SHERINE METAB OLIC 2000 PANEL - SERUM OR PLASM A osmolality of serum or plasma by calculation 287 mOsm/ kg 265.85 -296.6 0 Not Available [address], [place], [address], 08/20/2022 14:58:15 08/20/20 22 08/20/2022 COMPR EHENS SHERINE METAB OLIC 2000 PANEL - SERUM OR PLASM A protein [mass/volume ] in serum or plasma 6.9 g/dL 6.3-8. 2 Not Available [address], [place], [address], 08/20/2022 14:58:15 08/20/20 22 08/20/2022 COMPR EHENS SHERINE METAB OLIC 2000 PANEL - SERUM OR PLASM A albumin [mass/volume ] in serum or plasma 3.8 g/dL 3.5-5. 0 Not Available [address], [place], [address], 08/20/2022 14:58:15 08/20/20 22 08/20/2022 COMPR EHENS SHERINE METAB OLIC 2000 PANEL - SERUM OR PLASM A albumin/glob serpl-mrto 3.1 g/dL 2.2-4. 2 Not Available [address], [place], [address], 08/20/2022 14:58:15 08/20/20 22 08/20/2022 COMPR EHENS SHERINE METAB OLIC 1999 PANEL - SERUM OR PLASM A albumin/glob ulin [mass ratio] in serum or plasma 1.20 % 1.10-2 .20 Not Available [address], [place], [address], 08/20/2022 14:58:15 08/20/20 22 08/20/2022 COMPR EHENS SHERINE METAB OLIC 1999 PANEL - SERUM OR PLASM A bilirubin.to wander [mass/volume ] in serum or plasma 0.40 mg/dL 0.2-1. 3 Not Available [address], [place], [address], 08/20/2022 14:58:15 08/20/20 22 08/20/2022 COMPR EHENS SHERINE METAB OLIC 2000 PANEL - SERUM OR PLASM A aspartate aminotransfe rase [enzymatic activity/vol ume] in serum or plasma 26 U/L 14-36 Not Available [address], [place], [address], 08/20/2022 14:58:15 08/20/2008/20/2022 COMPR EHENS SHERINE METAB OLIC 2000 PANEL - SERUM OR PLASM A alanine aminotransfe rase [enzymatic activity/vol ume] in serum or plasma 25 U/L 9-52 Not Available [address], [place], [address], 08/20/2022 14:58:15 08/20/20 22 08/20/2022 COMPR EHENS SHERINE METAB OLIC 2000 PANEL - SERUM OR PLASM A alkaline phosphatase [enzymatic activity/vol ume] in serum or plasma 71 U/L 38-126 Not Available [address], [place], [address], 08/20/2022 14:58:15 08/20/20 22 08/20/2022 THYRO TROPI N [UNIT S/VOL UME] IN SERUM OR PLASM A thyrotropin [units/volum e] in serum or plasma 2.06 u[IU] /mL 0.46-4 .68 Not Available [address], [place], [address], 08/20/2022 14:58:16 08/20/20 22 08/20/2022 LIPID 1995 PNL SERPL cholesterol [mass/volume ] in serum or plasma 161 mg/dL 107-20 0 Not Available [address], [place], [address], 08/20/2022 14:58:16 08/20/20 22 08/20/2022 LIPID 1996 PNL SERPL triglyceride [mass/volume ] in serum or plasma 392 mg/dL 0-149 high Not Available [address], [place], [address], 08/20/2022 14:58:16 08/20/20 22 08/20/2022 LIPID 1996 PNL SERPL cholesterol in HDL [mass/volume ] in serum or plasma 44 mg/dL 39-61 Not Available [address], [facility] [place], [address], 08/20/2022 14:58:16 08/20/20 22 08/20/2022 LIPID 1995 PNL SERPL cholesterol in LDL [mass/volume ] in serum or plasma by calculation 39 mg/dL 0-100 Not Available [address], [facility], [place], [address], 08/20/2022 14:58:16 08/20/20 22 08/20/2022 LIPID 1996 PNL SERPL cholesterol in VLDL [mass/volume ] in serum or plasma 78.0 mg/dL Not Available [address], [facility], [place], [address], 08/20/2022 14:58:16 08/20/20 22 08/20/2022 LIPID 1995 PNL SERPL cardiac heart disease risk [ratio] in serum or plasma 3.65 [arb' U] Ather oscle rosis Risk Ratio s Men 1/2 avera ge 3.43 [place] ge 4.97 2x avera ge 9.55 3x avera ge 23.39 Women 1/2 avera ge 3.27 [place] ge 4.44 2x avera ge 7.[address] rage risk impli es a 20-25 % chanc e of devel oping CHD by age 60 Not Available [address], [facility], [place], [address], 08/20/2022 14:58:16 08/20/20 22 08/20/2022 VITAM IN D+MET ABOLI SNEHAL [MASS /VOLU ME] IN SERUM OR PLASM A vitamin D+metabolite s [mass/volume ] in serum or plasma 34.8 NG/mL 30-100 Not Available [facility], [place], [address], 08/20/2022 16:46:39 08/20/2008/20/2022 HEMOG LOBIN A1C [MASS /VOLU ME] IN BLOOD hemoglobin A1C [mass/volume ] in blood 5.7 % 0-5.99 Not Available [address], [place], [address], 08/21/2022 06:22:10 08/20/2008/20/2022 HEMOG LOBIN A1C [MASS /VOLU ME] IN BLOOD glucose mean value [mass/volume ] in blood estimated from glycated hemoglobin 117 mg/dL 65-160 Not Available [address], [place], [address], 08/21/2022 06:22:10 08/20/20 22 08/20/2022 ZINC [MASS /VOLU ME] IN SERUM OR PLASM A zinc [mass/volume ] in serum or plasma 57 ug/dL 60-130 low This test was devel oped and its jing tical perfo rmanc e magdaleno cteri stics have been deter mined by [facility] [place], [place]. It has not been clear ed or appro fernando by the U.S. Food and Drug Admin istra tion. This assay has been valid ated pursu ant to the CLIA regul ation s and is used for clini radha purpo ses. THIS TEST WAS PERFO RMED AT: [facility] [id number] [place], [place] Fernanda Turner M.D., Ph.D. ,[employer] atori es Not Available [address], [place], [address], 08/26/2022 07:13:11 08/20/20 22 08/20/2022 VIT B6 SERPL -SCNC pyridoxine [moles/volum e] in serum or plasma 14.8 NG/mL 2.1-21 .7 Vitam in suppl ement ation withi n 24 hours prior to blood draw may affec t the accur acy of the resul ts. This test was devel oped and its jing tical perfo rmanc e magdaleno cteri stics have been deter mined by [facility] [facility] [employer] [place], [place]. It has not been clear ed or appro fernando by the U.S. Food and Drug Admin istra tion. This assay has been valid ated pursu ant to the [employer] ation s and is used for clini radha purpo ses. THIS TEST WAS PERFO RMED AT: [facility] [id number] [place], [place] Fernanda Turner M.D., Ph.D. ,[employer] of [employer] atori es Not Available [address], [facility] [place], [address], 08/26/2022 07:53:32 08/20/20 22 08/20/2022 IDRIS INE [MASS /VOLU ME] IN SERUM OR PLASM A thiamine [mass/volume ] in serum or plasma 32 nmol/ L 8-30 high Vitam in suppl ement ation withi n 24 hours prior to blood draw may affec t the accur acy of the resul ts. This test was devel oped and its jing tical perfo rmanc e magdaleno cteri stics have been deter mined by [facility] [place]. It has not been clear ed or appro fernando by the U.S. Food and Drug Admin istra tion. This assay has been valid ated pursu ant to the CLIA regul ation s and is used for clini radha purpo ses. THIS TEST WAS PERFO RMED AT: [facility] [id number] [place], [place] Fernanda Turner M.D., Ph.D. ,[employer] of [employer] atori es Not Available [address], [address], 08/26/2022 14:38:57 08/20/2008/20/2022 VITAM IN B2 vit B2 bld ql 25.8 6.2-39 .0 Vitam in suppl ement ation withi n 24 hours prior to blood draw may affec t the accur acy of resul ts. This test was devel oped and its jing tical perfo rmanc e magdaleno cteri stics have been deter mined by [facility]. It has not been clear ed or appro fernando by the FDA. This assay has been valid ated pursu ant to the CLIA regul ation s and is used for clini radha purpo ses. Test perfo rmed by [employer] [facility] [id number] [facility], [place] [address] Phone : Medic al Direc tor: ELIANE HOLLINGSWORTH M.D. Test Repor tate by Joes J Justin tomas, [employer] [facility], [address] [facility] , [place], [place] Fernanda Turner M.D., Ph.D. , Direc tor of Labor atori es , CLIA [id number] THIS TEST WAS PERFO RMED AT: [facility] [address] [place] [address] Eliane hollingsworth M.D. Not Available [address], [address], 08/29/2022 15:08:39 04/17/20 23 04/17/2023 CBC W AUTO DIFFE RENTI AL PANEL - BLOOD leukocytes [#/volume] in blood by automated count 6.9 10*3/ uL 4.5-11 .0 180, 04/17 Not Available [address], [place], [place], [address], 04/17/2023 19:09:54 04/17/20 23 04/17/2023 CBC W AUTO DIFFE RENTI AL PANEL - BLOOD erythrocytes [#/volume] in blood by automated count 4.29 10*6/ uL 4.2-5. 4 Not Available [address], [place], [address], 04/17/2023 19:09:54 04/17/20 23 04/17/2023 CBC W AUTO DIFFE RENTI AL PANEL - BLOOD hemoglobin [mass/volume ] in blood 13.0 g/dL 12.0-1 6.0 Not Available [address], [place], [address], 04/17/2023 19:09:54 04/17/20 23 04/17/2023 CBC W AUTO DIFFE RENTI AL PANEL - BLOOD HCT vfr bld auto 41.9 % 36.0-4 8.0 Not Available [address], [place], [address], 04/17/2023 19:09:54 04/17/20 23 04/17/2023 CBC W AUTO DIFFE RENTI AL PANEL - BLOOD MCV [entitic volume] by automated count 97.7 fL 80-100 Not Available [address], [place], [address], 04/17/2023 19:09:54 04/17/20 23 04/17/2023 CBC W AUTO DIFFE RENTI AL PANEL - BLOOD MCH [entitic mass] by automated count 30.3 pg 27-32 Not Available [address], [place], [address], 04/17/2023 19:09:54 04/17/20 23 04/17/2023 CBC W AUTO DIFFE RENTI AL PANEL - BLOOD MCHC [mass/volume ] by automated count 31.0 g/dL 31.0-3 7.0 Not Available [address], [place], [place], [address], 04/17/2023 19:09:54 04/17/20 23 04/17/2023 CBC W AUTO DIFFE RENTI AL PANEL - BLOOD erythrocyte distribution width [ratio] by automated count 13.0 % 12-14. 5 Not Available [address], [place], [address], 04/17/2023 19:09:54 04/17/20 23 04/17/2023 CBC W AUTO DIFFE RENTI AL PANEL - BLOOD platelets [#/volume] in blood by automated count 220 10*3/ uL 150-45 0 1808, 04/17 Not Available [address], [place], [place], [address], 04/17/2023 19:09:54 04/17/20 23 04/17/2023 CBC W AUTO DIFFE RENTI AL PANEL - BLOOD platelet mean volume [entitic volume] in blood by automated count 11.3 fL 9.1-13 .2 Not Available [address], [place], [address], 04/17/2023 19:09:54 04/17/20 23 04/17/2023 CBC W AUTO DIFFE RENTI AL PANEL - BLOOD segmented neutrophils/ 100 leukocytes in blood by automated count 52.2 % 40-70 Not Available [address], [place], [place], [address], 04/17/2023 19:09:54 04/17/20 23 04/17/2023 CBC W AUTO DIFFE RENTI AL PANEL - BLOOD lymphocytes/ 100 leukocytes in blood by flow cytometry (fc) 39.0 % 20-44 Not Available [address], [place], [address], 04/17/2023 19:09:54 04/17/20 23 04/17/2023 CBC W AUTO DIFFE RENTI AL PANEL - BLOOD monocytes/10 0 leukocytes in blood by automated count 6.2 % 2-9 Not Available [address], [facility] [place], [address], 04/17/2023 19:09:54 04/17/20 23 04/17/2023 CBC W AUTO DIFFE RENTI AL PANEL - BLOOD eosinophils/ 100 leukocytes in blood by automated count 1.9 % 0-4 Not Available [address], [facility] [place], [address], 04/17/2023 19:09:54 04/17/20 23 04/17/2023 CBC W AUTO DIFFE RENTI AL PANEL - BLOOD basophils/10 0 leukocytes in blood by automated count 0.6 % 0-1 Not Available [address], [facility] [place], [address], 04/17/2023 19:09:54 04/17/20 23 04/17/2023 CBC W AUTO DIFFE RENTI AL PANEL - BLOOD neutrophils [#/volume] in blood by automated count 3.62 10*3/ uL 1.8-7. 7 Not Available [address], [place], [address], 04/17/2023 19:09:54 04/17/20 23 04/17/2023 CBC W AUTO DIFFE RENTI AL PANEL - BLOOD lymphocytes [#/volume] in blood by automated count 2.71 10*3/ uL 0.9-4. 8 Not Available [address], [place], [address], 04/17/2023 19:09:54 04/17/20 23 04/17/2023 CBC W AUTO DIFFE RENTI AL PANEL - BLOOD monocytes [#/volume] in blood by automated count 0.4 10*3/ uL 0-0.8 Not Available [address], [place], [address], 04/17/2023 19:09:54 04/17/20 23 04/17/2023 CBC W AUTO DIFFE RENTI AL PANEL - BLOOD eosinophils [#/volume] in blood by automated count 0.13 10*3/ uL 0-0.7 Not Available [address], [place], [address], 04/17/2023 19:09:54 04/17/20 23 04/17/2023 CBC W AUTO DIFFE RENTI AL PANEL - BLOOD basophils [#/volume] in blood by automated count 0.04 10*3/ uL 0-0.2 Not Available [address], [place], [address], 04/17/2023 19:09:54 04/17/20 23 04/17/2023 CBC W AUTO DIFFE RENTI AL PANEL - BLOOD immature granulocytes [presence] in blood by automated count 0.1 % 0-0.7 Not Available [address], [place], [address], 04/17/2023 19:09:54 04/17/20 23 04/17/2023 CBC W AUTO DIFFE RENTI AL PANEL - BLOOD immature granulocytes [#/volume] in blood 0.01 10*3/ uL 0.00-0 .06 Not Available [address], [place], [address], 04/17/2023 19:09:54 04/17/20 23 04/17/2023 COMPR EHENS SHERINE METAB OLIC 2000 PANEL - SERUM OR PLASM A glomerular filtration rate/1.73 sq M.predicted [volume rate/area] in serum, plasma or blood by creatinine-b ased formula (CKD-epi) 62.5 mL 90.0-1 20.0 For Jackson Jacobsentr ation Rate (GFR) inter preta tion purpo ses visit the [employer] [employer] Found ation websi te: [email or web address] :[email or web address] Not Available [address], [place], [address], 04/17/2023 19:50:02 04/17/20 23 04/17/2023 COMPR EHENS SHERINE METAB OLIC 2000 PANEL - SERUM OR PLASM A glucose [mass/volume ] in serum or plasma 93 mg/dL 74-106 Not Available [address], [place], [address], 04/17/2023 19:50:02 04/17/20 23 04/17/2023 COMPR EHENS SHERINE METAB OLIC 2000 PANEL - SERUM OR PLASM A urea nitrogen [mass/volume ] in serum or plasma 24 mg/dL 7-17 high Not Available [address], [place], [address], 04/17/2023 19:50:02 04/17/20 23 04/17/2023 COMPR EHENS SHERINE METAB OLIC 2000 PANEL - SERUM OR PLASM A creatinine [mass/volume ] in serum or plasma 0.9 mg/dL 0.7-1. 2 Not Available [address], [place], [address], 04/17/2023 19:50:02 04/17/20 23 04/17/2023 COMPR EHENS SHERINE METAB OLIC 1999 PANEL - SERUM OR PLASM A urea nitrogen/cre atinine [mass ratio] in blood 26.6 % 12-20 high Not Available [address], [place], [address], 04/17/2023 19:50:02 04/17/20 23 04/17/2023 COMPR EHENS SHERINE METAB OLIC 1999 PANEL - SERUM OR PLASM A sodium [moles/volum e] in serum or plasma 142 mmol/ L 137-14 5 Not Available [address], [place], [address], 04/17/2023 19:50:02 04/17/20 23 04/17/2023 COMPR EHENS SHERINE METAB OLIC 1999 PANEL - SERUM OR PLASM A potassium [moles/volum e] in serum or plasma 4.3 mmol/ L 3.5-5. 1 Not Available [address], [place], [address], 04/17/2023 19:50:02 04/17/20 23 04/17/2023 COMPR EHENS SHERINE METAB OLIC 1999 PANEL - SERUM OR PLASM A chloride [moles/volum e] in serum or plasma 101 mmol/ L 98-107 Not Available [address], [place], [address], 04/17/2023 19:50:02 04/17/20 23 04/17/2023 COMPR EHENS SHERINE METAB OLIC 2000 PANEL - SERUM OR PLASM A carbon dioxide, total [moles/volum e] in serum or plasma 32 mmol/ L 22-30 high Not Available [address], [place], [address], 04/17/2023 19:50:02 04/17/20 23 04/17/2023 COMPR EHENS SHERINE METAB OLIC 2000 PANEL - SERUM OR PLASM A calcium [mass/volume ] in blood 10.2 mg/dL 8.4-10 .2 Not Available [address], [place], [address], 04/17/2023 19:50:02 04/17/20 23 04/17/2023 COMPR EHENS SHERINE METAB OLIC 2000 PANEL - SERUM OR PLASM A anion gap in serum or plasma 13.3 mmol/ L 11.0-2 0.0 Not Available [address], [place], [address], 04/17/2023 19:50:02 04/17/20 23 04/17/2023 COMPR EHENS SHERINE METAB OLIC 2000 PANEL - SERUM OR PLASM A osmolality of serum or plasma by calculation 287 mOsm/ kg 265.85 -296.6 0 Not Available [address], [place], [address], 04/17/2023 19:50:02 04/17/20 23 04/17/2023 COMPR EHENS SHERINE METAB OLIC 2000 PANEL - SERUM OR PLASM A protein [mass/volume ] in serum or plasma 7.4 g/dL 6.3-8. 2 Not Available [address], [place], [address], 04/17/2023 19:50:02 04/17/20 23 04/17/2023 COMPR EHENS SHERINE METAB OLIC 2000 PANEL - SERUM OR PLASM A albumin [mass/volume ] in serum or plasma 4.4 g/dL 3.5-5. 0 Not Available [address], [place], [address], 04/17/2023 19:50:02 04/17/20 23 04/17/2023 COMPR EHENS SHERINE METAB OLIC 1999 PANEL - SERUM OR PLASM A albumin/glob serpl-mrto 3.0 g/dL 2.2-4. 2 Not Available [address], [place], [address], 04/17/2023 19:50:02 04/17/20 23 04/17/2023 COMPR EHENS SHERINE METAB OLIC 1999 PANEL - SERUM OR PLASM A albumin/glob ulin [mass ratio] in serum or plasma 1.40 % 1.10-2 .20 Not Available [address], [facility] [place], [address], 04/17/2023 19:50:02 04/17/20 23 04/17/2023 COMPR EHENS SHERINE METAB OLIC 1999 PANEL - SERUM OR PLASM A bilirubin.to wander [mass/volume ] in serum or plasma 0.50 mg/dL 0.2-1. 3 Not Available [address], [facility] [place] [place], [address], 04/17/2023 19:50:02 04/17/20 23 04/17/2023 COMPR EHENS SHERINE METAB OLIC 1999 PANEL - SERUM OR PLASM A aspartate aminotransfe rase [enzymatic activity/vol ume] in serum or plasma 33 U/L 14-36 Not Available [address] [place], [address], 04/17/2023 19:50:02 04/17/20 23 04/17/2023 COMPR EHENS SHERINE METAB OLIC 2000 PANEL - SERUM OR PLASM A alanine aminotransfe rase [enzymatic activity/vol ume] in serum or plasma 35 U/L 9-52 Not Available [address] [place], [address], 04/17/2023 19:50:02 04/17/20 23 04/17/2023 COMPR EHENS SHERINE METAB OLIC 2000 PANEL - SERUM OR PLASM A alkaline phosphatase [enzymatic activity/vol ume] in serum or plasma 70 U/L 38-126 Not Available [address], [facility] [place], [address], 04/17/2023 19:50:02 04/17/20 23 04/17/2023 NATRI URETI C PEPTI DE.B PROHO RMONE N-TER LAMBERTO [MASS /VOLU ME] IN SERUM OR PLASM A natriuretic peptide.B prohormone N-terminal [mass/volume ] in serum or plasma 91.60 pg/mL 0.00-4 50.00 Not Available [address] [place], [address], 04/17/2023 19:50:02 04/17/20 23 04/17/2023 THYRO TROPI N [UNIT S/VOL UME] IN SERUM OR PLASM A thyrotropin [units/volum e] in serum or plasma 2.50 u[IU] /mL 0.46-4 .68 Not Available [address] [place], [address], 04/17/2023 19:50:03 04/17/20 23 04/17/2023 THYRO XINE (T4) FREE [MASS /VOLU ME] IN SERUM OR PLASM A thyroxine (T4) free [mass/volume ] in serum or plasma 1.12 NG/dL 0.78-2 .19 Not Available [address] [place], [address], 04/17/2023 19:50:03 04/17/20 23 04/17/2023 LIPID 1996 PNL SERPL cholesterol [mass/volume ] in serum or plasma 158 mg/dL 107-20 0 Not Available [address] [place], [address], 04/17/2023 19:50:04 04/17/20 23 04/17/2023 LIPID 1996 PNL SERPL triglyceride [mass/volume ] in serum or plasma 271 mg/dL 0-149 high Not Available [address], [facility] [place], [address], 04/17/2023 19:50:04 04/17/20 23 04/17/2023 LIPID 1996 PNL SERPL cholesterol in HDL [mass/volume ] in serum or plasma 49 mg/dL 39-61 Not Available [address], [facility] [place] [place], [address], 04/17/2023 19:50:04 04/17/20 23 04/17/2023 LIPID 1996 PNL SERPL cholesterol in LDL [mass/volume ] in serum or plasma by calculation 55 mg/dL 0-100 Not Available [address], [facility], [place], [address], 04/17/2023 19:50:04 04/17/20 23 04/17/2023 LIPID 1996 PNL SERPL cholesterol in VLDL [mass/volume ] in serum or plasma 54.0 mg/dL Not Available [address], [facility] [place] [place], [address], 04/17/2023 19:50:04 04/17/20 23 04/17/2023 LIPID 1996 PNL SERPL cardiac heart disease risk [ratio] in serum or plasma 3.22 [arb' U] Ather oscle rosis Risk Ratio s Men 1/2 avera ge 3.43 [place] ge 4.97 2x avera ge 9.55 3x avera ge 23.39 Women 1/2 avera ge 3.27 [place] ge 4.44 2x avera ge 7.[address] rage risk impli es a 20-25 % chanc e of devel oping CHD by age 60 Not Available [address], [place], [address], 04/17/2023 19:50:04 04/17/20 23 04/17/2023 HEMOG LOBIN A1C [MASS /VOLU ME] IN BLOOD hemoglobin A1C [mass/volume ] in blood 5.5 % 0-5.99 Not Available [address], [place], [address], 04/18/2023 02:15:54 04/17/2004/17/2023 HEMOG LOBIN A1C [MASS /VOLU ME] IN BLOOD glucose mean value [mass/volume ] in blood estimated from glycated hemoglobin 111 mg/dL 65-160 Not Available [address], [place], [place], [address], 04/18/2023 02:15:54 04/17/20 23 04/17/2023 VITAM IN D+MET ABOLI SNEHAL [MASS /VOLU ME] IN SERUM OR PLASM A vitamin D+metabolite s [mass/volume ] in serum or plasma 46.4 NG/mL 30-100 Not Available [address], [place], [address], 04/18/2023 14:29:31 08/04/2008/04/2023 CBC W AUTO DIFFE RENTI AL PANEL - BLOOD leukocytes [#/volume] in blood by automated count 6.8 10*3/ uL 4.5-11 .0 1613, 08/04 Not Available [address], [place], [address], 08/04/2023 17:16:09 08/04/20 23 08/04/2023 CBC W AUTO DIFFE RENTI AL PANEL - BLOOD erythrocytes [#/volume] in blood by automated count 4.10 10*6/ uL 4.2-5. 4 low Not Available [address], [place], [address], 08/04/2023 17:16:09 08/04/2008/04/2023 CBC W AUTO DIFFE RENTI AL PANEL - BLOOD hemoglobin [mass/volume ] in blood 12.5 g/dL 12.0-1 6.0 Not Available [address], [place], [address], 08/04/2023 17:16:09 08/04/2008/04/2023 CBC W AUTO DIFFE RENTI AL PANEL - BLOOD HCT vfr bld auto 39.9 % 36.0-4 8.0 Not Available [address], [place], [address], 08/04/2023 17:16:09 08/04/2008/04/2023 CBC W AUTO DIFFE RENTI AL PANEL - BLOOD MCV [entitic volume] by automated count 97.3 fL 80-100 Not Available [address], [place], [place], [address], 08/04/2023 17:16:09 08/04/2008/04/2023 CBC W AUTO DIFFE RENTI AL PANEL - BLOOD MCH [entitic mass] by automated count 30.5 pg 27-32 Not Available [address], [place], [address], 08/04/2023 17:16:09 08/04/2008/04/2023 CBC W AUTO DIFFE RENTI AL PANEL - BLOOD MCHC [mass/volume ] by automated count 31.3 g/dL 31.0-3 7.0 Not Available [address], [place], [address], 08/04/2023 17:16:09 08/04/2008/04/2023 CBC W AUTO DIFFE RENTI AL PANEL - BLOOD erythrocyte distribution width [ratio] by automated count 13.4 % 12-14. 5 Not Available [address], [place], [place], [address], 08/04/2023 17:16:09 08/04/2008/04/2023 CBC W AUTO DIFFE RENTI AL PANEL - BLOOD platelets [#/volume] in blood by automated count 251 10*3/ uL 150-45 0 1613, 08/04 Not Available [address], [place], [place], [address], 08/04/2023 17:16:09 08/04/2008/04/2023 CBC W AUTO DIFFE RENTI AL PANEL - BLOOD platelet mean volume [entitic volume] in blood by automated count 10.9 fL 9.1-13 .2 Not Available [address], [place], [address], 08/04/2023 17:16:09 08/04/2008/04/2023 CBC W AUTO DIFFE RENTI AL PANEL - BLOOD segmented neutrophils/ 100 leukocytes in blood by automated count 56.2 % 40-70 Not Available [address], [place], [place], [address], 08/04/2023 17:16:09 08/04/2008/04/2023 CBC W AUTO DIFFE RENTI AL PANEL - BLOOD lymphocytes/ 100 leukocytes in blood by flow cytometry (fc) 35.8 % 20-44 Not Available [address], [place], [address], 08/04/2023 17:16:09 08/04/2008/04/2023 CBC W AUTO DIFFE RENTI AL PANEL - BLOOD monocytes/10 0 leukocytes in blood by automated count 5.7 % 2-9 Not Available [address], [place], [address], 08/04/2023 17:16:09 08/04/20 23 08/04/2023 CBC W AUTO DIFFE RENTI AL PANEL - BLOOD eosinophils/ 100 leukocytes in blood by automated count 2.1 % 0-4 Not Available [address], [place], [address], 08/04/2023 17:16:09 08/04/2008/04/2023 CBC W AUTO DIFFE RENTI AL PANEL - BLOOD basophils/10 0 leukocytes in blood by automated count 0.1 % 0-1 Not Available [address], [place], [address], 08/04/2023 17:16:09 08/04/2008/04/2023 CBC W AUTO DIFFE RENTI AL PANEL - BLOOD neutrophils [#/volume] in blood by automated count 3.82 10*3/ uL 1.8-7. 7 Not Available [address], [place], [address], 08/04/2023 17:16:09 08/04/2008/04/2023 CBC W AUTO DIFFE RENTI AL PANEL - BLOOD lymphocytes [#/volume] in blood by automated count 2.44 10*3/ uL 0.9-4. 8 Not Available [address], [place], [address], 08/04/2023 17:16:09 08/04/20 23 08/04/2023 CBC W AUTO DIFFE RENTI AL PANEL - BLOOD monocytes [#/volume] in blood by automated count 0.4 10*3/ uL 0-0.8 Not Available [address], [place], [address], 08/04/2023 17:16:09 08/04/2008/04/2023 CBC W AUTO DIFFE RENTI AL PANEL - BLOOD eosinophils [#/volume] in blood by automated count 0.14 10*3/ uL 0-0.7 Not Available [address], [place], [address], 08/04/2023 17:16:09 08/04/2008/04/2023 CBC W AUTO DIFFE RENTI AL PANEL - BLOOD basophils [#/volume] in blood by automated count 0.01 10*3/ uL 0-0.2 Not Available [address], [place], [address], 08/04/2023 17:16:09 08/04/2008/04/2023 CBC W AUTO DIFFE RENTI AL PANEL - BLOOD immature granulocytes [presence] in blood by automated count 0.1 % 0-0.7 Not Available [address], [place], [address], 08/04/2023 17:16:09 08/04/2008/04/2023 CBC W AUTO DIFFE RENTI AL PANEL - BLOOD immature granulocytes [#/volume] in blood 0.01 10*3/ uL 0.00-0 .06 Not Available [address], [place], [address], 08/04/2023 17:16:09 08/04/2008/04/2023 COMPR EHENS SHERINE METAB OLIC 2000 PANEL - SERUM OR PLASM A glomerular filtration rate/1.73 sq M.predicted [volume rate/area] in serum, plasma or blood by creatinine-b ased formula (CKD-epi) 62 mL 90-120 For Glome rular Filtr ation Rate (GFR) inter preta tion purpo ses visit the Esteban Correa [employer] Found ation websi te: [email or web address] :[email or web address] Not Available [address], [place], [address], 08/04/2023 17:40:18 08/04/2008/04/2023 COMPR EHENS SHERINE METAB OLIC 1999 PANEL - SERUM OR PLASM A glucose [mass/volume ] in serum or plasma 112 mg/dL 74-106 high Not Available [address], [place], [address], 08/04/2023 17:40:18 08/04/20 23 08/04/2023 COMPR EHENS SHERINE METAB OLIC 2000 PANEL - SERUM OR PLASM A urea nitrogen [mass/volume ] in serum or plasma 29 mg/dL 7-17 high Not Available [address], [place], [address], 08/04/2023 17:40:18 08/04/20 23 08/04/2023 COMPR EHENS SHERINE METAB OLIC 2000 PANEL - SERUM OR PLASM A creatinine [mass/volume ] in serum or plasma 0.9 mg/dL 0.7-1. 2 Not Available [address], [place], [address], 08/04/2023 17:40:18 08/04/20 23 08/04/2023 COMPR EHENS SHERINE METAB OLIC 2000 PANEL - SERUM OR PLASM A urea nitrogen/cre atinine [mass ratio] in blood 32.2 % 12-20 high Not Available [address], [place], [address], 08/04/2023 17:40:18 08/04/20 23 08/04/2023 COMPR EHENS SHERINE METAB OLIC 1999 PANEL - SERUM OR PLASM A sodium [moles/volum e] in serum or plasma 139 mmol/ L 137-14 5 Not Available [address], [place], [address], 08/04/2023 17:40:18 08/04/20 23 08/04/2023 COMPR EHENS SHERINE METAB OLIC 1999 PANEL - SERUM OR PLASM A potassium [moles/volum e] in serum or plasma 4.0 mmol/ L 3.5-5. 1 Not Available [address], [place], [address], 08/04/2023 17:40:18 08/04/2008/04/2023 COMPR EHENS SHERINE METAB OLIC 1999 PANEL - SERUM OR PLASM A chloride [moles/volum e] in serum or plasma 101 mmol/ L 98-107 Not Available [address], [place], [address], 08/04/2023 17:40:18 08/04/2008/04/2023 COMPR EHENS SHERINE METAB OLIC 1999 PANEL - SERUM OR PLASM A carbon dioxide, total [moles/volum e] in serum or plasma 31 mmol/ L 22-30 high Not Available [address], [place], [address], 08/04/2023 17:40:18 08/04/20 23 08/04/2023 COMPR EHENS SHERINE METAB OLIC 1999 PANEL - SERUM OR PLASM A calcium [mass/volume ] in blood 11.0 mg/dL 8.4-10 .2 high Not Available [address], [place], [address], 08/04/2023 17:40:18 08/04/20 23 08/04/2023 COMPR EHENS SHERINE METAB OLIC 2000 PANEL - SERUM OR PLASM A anion gap in serum or plasma 11.0 mmol/ L 11.0-2 0.0 Not Available [address] [place], [address], 08/04/2023 17:40:18 08/04/20 23 08/04/2023 COMPR EHENS SHERINE METAB OLIC 1999 PANEL - SERUM OR PLASM A osmolality of serum or plasma by calculation 284 mOsm/ kg 265.85 -296.6 0 Not Available [address] [place], [place], [address], 08/04/2023 17:40:18 08/04/2008/04/2023 COMPR EHENS SHERINE METAB OLIC 1999 PANEL - SERUM OR PLASM A protein [mass/volume ] in serum or plasma 7.5 g/dL 6.3-8. 2 Not Available [address] [place], [address], 08/04/2023 17:40:18 08/04/2008/04/2023 COMPR EHENS SHERINE METAB OLIC 1999 PANEL - SERUM OR PLASM A albumin [mass/volume ] in serum or plasma 4.2 g/dL 3.5-5. 0 Not Available [address] [place], [address], 08/04/2023 17:40:18 08/04/2008/04/2023 COMPR EHENS SHERINE METAB OLIC 1999 PANEL - SERUM OR PLASM A albumin/glob serpl-mrto 3.3 g/dL 2.2-4. 2 Not Available [address] [place], [address], 08/04/2023 17:40:18 08/04/20 23 08/04/2023 COMPR EHENS SHERINE METAB OLIC 1999 PANEL - SERUM OR PLASM A albumin/glob ulin [mass ratio] in serum or plasma 1.20 % 1.10-2 .20 Not Available [address], [place], [address], 08/04/2023 17:40:18 08/04/20 23 08/04/2023 COMPR EHENS SHERINE METAB OLIC 1999 PANEL - SERUM OR PLASM A bilirubin.to wander [mass/volume ] in serum or plasma 0.30 mg/dL 0.2-1. 3 Not Available [address], [place], [address], 08/04/2023 17:40:18 08/04/20 23 08/04/2023 COMPR EHENS SHERINE METAB OLIC 1999 PANEL - SERUM OR PLASM A aspartate aminotransfe rase [enzymatic activity/vol ume] in serum or plasma 21 U/L 14-36 Not Available [address], [place], [address], 08/04/2023 17:40:18 08/04/20 23 08/04/2023 COMPR EHENS SHERINE METAB OLIC 1999 PANEL - SERUM OR PLASM A alanine aminotransfe rase [enzymatic activity/vol ume] in serum or plasma 19 U/L 9-52 Not Available [address], [place], [place], [address], 08/04/2023 17:40:18 08/04/20 23 08/04/2023 COMPR EHENS SHERINE METAB OLIC 1999 PANEL - SERUM OR PLASM A alkaline phosphatase [enzymatic activity/vol ume] in serum or plasma 66 U/L 38-126 Not Available [address], [place], [address], 08/04/2023 17:40:18 08/04/20 23 08/04/2023 PROCA LCITO WILLI [MASS /VOLU ME] IN SERUM OR PLASM A procalcitoni n [mass/volume ] in serum or plasma 0.075 NG/mL <0.5 SEPSI S: <0.5 ng/mL - Low risk for progr essio n to sever e sepsi s and/o r septi c shock 0.5-2 .0 ng/mL - Sepsi s shoul d be consi dered ; recom mend recol lecti on at 6-24 hours for repea t testi ng >2.0 ng/mL - High risk for progr essio n to sever e sepsi s and/o r septi c shock Not Available [address], [place], [address], 08/05/2023 18:15:01 08/21/2008/21/2023 CALCI UM.IO NIZED [MOLE S/VOL UME] IN SERUM OR PLASM A BY ION-S ELECT SHERINE MEMBR ANE ELECT RODE (ISE) calcium.ioni zed [moles/volum e] in serum or plasma by ion-selectiv e membrane electrode (ise) 1.19 mmol/ L 1.12-1 .32 OBTAI DARRIN NEETU MCKEONY Not Available [address], [address], 08/21/2023 14:38:41 08/21/20 23 08/21/[address] AND CALCI UM PANEL - SERUM OR PLASM A calcium [mass/volume ] in blood 9.2 mg/dL 8.4-10 .2 Not Available [address], [address], 08/22/2023 14:25:17 08/21/2008/21/[address] AND CALCI UM PANEL - SERUM OR PLASM A parathyrin.i ntact and calcium panel - serum or plasma 168.7 pg/mL 18.4-8 1.8 high Not Available [address], [address], 08/22/2023 14:25:17 05/02/20 23 05/02/2023 XR, hip, unila teral , 2 or 3 view [facility] - Radiol ogy [address] [place] [address] Radiol ogy Report Patien t: Ruddy MALLORY EIPEPE VELA Comple tate: 1833 Date of Servic e: 05/18 725100 MR #: [id number] /AG E/SEX: 1934 / / F Room/B ed: Locati on: RAD Access ion: [id number] Exam: Hips Bilate ral Reason : PAIN IN BILATE RAL HIPS AND KNEES Orderi ng Provid er: Shital Pandey MD Attend ing Provid er: Shital Pandey MD CC: [facility]; MD Andrea Ronald Report Number :[id number] Hips Bilate ral: 05/02/20 23 4:00 PM HISTOR Y: PAIN IN BILATE RAL HIPS AND KNEES FINDIN GS: 3 views of both hips demons trate mild arthri tic change s in the hip joint bilate rally. These findin gs are symmet maurilio. The overal l appear ance on the right is unchan ged from the April 2022 study. Lower lumbar arthri tic change s are also presen t. Ciaran jeronimo also presen t. End of Report Dictat ed by: MD Andrea Ronald 1929 Transc riptio nist: Jimmy Andrea MD 1929 Signed by: MD Andrea Ronald 1931 [email or web address] [facility] [address] [place] [address] [address], [facility] [place], [address], 05/22/2023 08:18:53 05/02/20 23 05/02/2023 XR, knee, 3 view [facility] - Radiol ogy [address] [place] [address] [phone] Radiol ogy Report Patien t: Ruddy MALLORY MIRIAN Comple tate: 1834 Date of Servic e: 05/18 268993 MR #: [id number] /AG E/SEX: 1934 / Room/B ed: Locati on: RAD Access ion: [id number] Exam: Knee Lt AP/LAT /SUNRI SE Reason : PAIN IN BILATE RAL HIPS AND KNEES Orderi ng Provid er: Shital Pandey MD Attend ing Provid er: Shital Pandey MD CC: Shital Pandey; MD Emre, Jimmy Report Number :[id number] 3 views of the left knee demons trates narrow ing of the medial compar tment of the knee. No effusi on. No fractu re. IMPRES ARLENE: Osteoa rthrit ic change s medial compar tment left knee End of Report Dictat ed by: MD Andrea Ronald 1931 Transc riptio nist: Jimmy Andrea MD 1931 Signed by: MD Andrea Ronald 1932 [facility] [address] [place] [address], [address], 05/05/2023 08:00:16 05/02/20 23 05/02/2023 XR, knee, 3 view [facility] - Radiol ogy [address] [place] [address] [phone] Radiol ogy Report Patien t: Ruddy MALLORY Comple tate: 1600 Date of Servic e: 05/18 153752 MR #: [id number] /AG E/SEX: 1934 / Room/B ed: Locati on: RAD Access ion: [id number] Exam: Knee Rt AP/LAT /SUNRI SE Reason : PAIN IN BILATE RAL HIPS AND KNEES Orderi ng Provid er: Shital Pandey MD Attend ing Provid er: Shital Pandey MD CC: Shital Pandey; MD Andrea Ronald Report Number :[id number] Right knee 3 views demons trate normal patell ofemor al joint. The joint space is relati vely mainta ined, there is mild narrow ing of the medial compar tment. IMPRES ARLENE: Mild arthri tic change s medial compar tment of the knee End of Report Dictat ed by: MD Andrea Ronald 1934 Transc riptio nist: Jimmy Andrea MD 1934 Signed by: MD Andrea Ronald [email or web address], [facility], [place], [address], 05/22/2023 08:19:08 08/15/2006/23/2023 XR, chest , 1 view No observ ation record ed. [email or web address] Not Available 08/15 11:36:48 08/15/2006/23/2023 CT, head, w/o contr ast No observ ation record ed. mainscough Not Available 08/15 11:37:57 Result Notes Documentation Provider Name and Address Organization Details Recorded Time Xr, Hip, Unilateral, 2 Or 3 View : [facility] Radiology [address] [place] [address] Dr, [place] [address] [phone] Radiology Report Patient: SONIA MALLORY Completed: 05/02/23 1834 Date of Service:05/02/23 MR #: [id number] /AGE/SEX:1935 / 88 / F Room/Bed: Location: RAD Exam: Hips Bilateral Reason: PAIN IN BILATERAL HIPS AND KNEES Ordering Provider: Shital Pandey MD Attending Provider: Shital Pandey MD CC: Shital Pandey; MD Andrea Ronald Report Number:[id number] Hips Bilateral: 05/02/2023 4:00 PM HISTORY: PAIN IN BILATERAL HIPS AND KNEES FINDINGS: 3 views of both hips demonstrate mild arthritic changes in the hip joint bilaterally. These findings are symmetric. The overall appearance on the right is unchanged from the April 2022 study. Lower lumbar arthritic changes are also present. Constipation also present. End of Report Dictated by: MD Andrea Ronald 05/02/231929 Vacuum Repairer: Jimmy Andrea MD 05/02/231929 Signed by: MD Andrea Ronald 05/02/231931 Tabitha zendejas [facility] 05/22/2023 08:18:53 Xr, Knee, 3 View : [address] , [place] [address] [phone] Radiology Report Patient: SONIA MALLORY Completed: 05/02/231833 Date of Service:05/02/23 MR #: [id number] /AGE/SEX:1935 / 88 / F Room/Bed: Location: RAD Exam: Knee Lt AP/LAT/SUNRISE Reason: PAIN IN BILATERAL HIPS AND KNEES Ordering Provider: Shital Pandey MD Attending Provider: Shital Pandey MD CC: Shital Pandey; MD Andrea Ronald Report Number:[id number] 3 views of the left knee demonstrates narrowing of the medial compartment of the knee. No effusion. No fracture. IMPRESSION: Osteoarthritic changes medial compartment left knee End of Report Dictated by: MD Andrea Ronald 05/02/231931 Vacuum Repairer: Jimmy Andrea MD 05/02/231931 Signed by: MD Andrea Ronald 05/02/231932 Shital Pandey MD [address] [place], [address], [facility] 05/05/2023 08:00:16 Xr, Knee, 3 View : [facility] [address] [place] [address] Dr, [place] [address] [phone] Radiology Report Patient: SONIA MALLORY Completed: 05/02/23 1600 Date of Service:05/02/23 MR #: [id number] /AGE/SEX:1935 / 88 / F Room/Bed: Location: RAD Exam: Knee Rt AP/LAT/SUNRISE Reason: PAIN IN BILATERAL HIPS AND KNEES Ordering Provider: Shital Pandey MD Attending Provider: Shital Pandey MD CC: Shital Pandey Cinel; MD Andrea Ronald Report Number:[id number] Right knee 3 views demonstrate normal patellofemoral joint. The joint space is relatively maintained, there is mild narrowing of the medial compartment. IMPRESSION: Mild arthritic changes medial compartment of the knee End of Report Dictated by: MD Andrea Ronald 05/02/231934 Vacuum Repairer: Jimmy Andrea MD 05/02/231934 Signed by: MD Andrea Ronald 05/02/231936 [facility] 05/22/2023 08:19:08 Problems Name Problem SNOMED Code Status Onset Date Resolution Date Notes Provider Name and Address Organization Details Recorded Time Pneumonia 267305748 Active Not Available [facility] 4 19:34:42 COVID-19 972913684 Active Not Available [facility] 4 19:34:43 Pain of joint of pelvis and/or upper leg 220640158 Active Not Available [facility] 4 19:34:42 Swelling of right lower limb 127718274 Active Not Available [facility] 4 19:34:43 Pneumonia caused by SARS-CoV-2 5415493688423 21785 Active Not Available [facility] 4 19:34:43 Pain in lower limb 23236861 Active Not Available [facility] 4 19:34:42 Deep venous thrombosis 515618303 Active Not Available [facility] 4 19:34:42 Osteoarthr itis of bilateral hip joints 4670802794183 05 Active Not Available [facility] 4 19:34:42 Greater trochanter ic pain syndrome 2167804 Active Not Available [facility] 4 19:34:43 History of pulmonary embolus 762914516 Active 2020 Not Available [facility] 4 19:34:42 Dementia 57996870 Active 2020 Not Available [facility] 4 19:34:43 Degenerati on of cervical interverte bral disc 05065873 Active 2020 Not Available [facility] 4 19:34:43 Mixed hyperlipid emia 224415402 Active 2020 Not Available [facility] 4 19:34:42 Irritable bowel syndrome 74377569 Active 2020 Not Available [facility] 4 19:34:42 Lumbar spondylosi s 578718942 Active 2020 Not Available [facility] 4 19:34:42 Osteoarthr itis of ankle 096594318 Active 2020 Not Available [facility] 4 19:34:42 Impaired glucose tolerance 3911076 Active 2020 Not Available [facility] 4 19:34:43 Carotid artery stenosis 10260780 Active 2020 Not Available [facility] 4 19:34:43 Vitamin D deficiency 69906393 Active 2020 Not Available [facility] 4 19:34:42 Essential hypertensi on 90540165 Active 2020 Not Available [facility] 4 19:34:43 Moderate recurrent major depression 82527619 Active 2020 Not Available [facility] 4 19:34:42 Medicare annual wellness visit Active 2021 Not Available [facility] 4 19:34:43 At high risk for fall 3504055310485 78250 Active 2021 Not Available [facility] 4 19:34:43 Abnormal gait due to impairment of balance 250600130 Active 2021 Not Available [facility] 4 19:34:42 Anemia 715248996 Active 2021 Not Available [facility] 4 19:34:42 Senile asthenia 16148199 Active 2021 Not Available [facility] 4 19:34:42 Vitamin B12 deficiency (non anemic) 26857506 Active 2021 Not Available [facility] 4 19:34:43 Idiopathic peripheral neuropathy 76802793 Active 2021 Not Available [facility] 4 19:34:42 Pain of right hip joint 6433558571984 02 Active 2022 Not Available [facility] 4 19:34:42 Pain of left hip joint 8476423609048 00 Active 2022 Not Available [facility] 4 19:34:42 Pain of right knee joint 9433707625830 00 Active 2022 Not Available [facility] 4 19:34:43 Pain of left knee joint 0295710135070 07 Active 2022 Not Available [facility] 4 19:34:43 Chronic kidney disease stage 2 016119121 Active 2022 Not Available [facility] 4 19:34:43 Seborrheic dermatitis of scalp 899928397 Active 2022 Not Available [facility] 4 19:34:42 Notes:Some problems listed i n Document: #[id number] could not be added to this patient's chart. Please review this document and add these problems to the patient's chart manually as needed. Problem Notes None recorded. Procedures Surgical History Date Name Laterality Status Provider Name and Address Organization Details Recorded Time 02/25/20 07 Total Hysterectomy completed [facility] 11/29/2020 11:44:36 Cataract Surgery completed [facility] 11/29/2020 11:44:47 Tonsillectomy completed [facility] 11/29/2020 11:44:55 Imaging Results None recorded. Procedure Notes None recorded. Medical Equipment None Reported. Allergies Allergen ID Allergen Name Allergen Category Reaction Reaction Severity Criticality Documentation Date Start Date Code Code System Note Provider Name and Address Organization Details Recorded Time 400111 codeine medicatio n Not available Not available Not available 11/29/20202021 2670 RxNorm Lizet Martinez [facility] 12:50:05 410440 hydrocodo ne Not available Not available Not available Not available 11/29/2020 5489 RxNorm [facility] 11:41:37 303575 latex environme nt,medica tion Not available Not available Not available 11/29/20202021 01663 91 RxNorm Lizet Martinez [facility] 12:50:05 Medications Name Sig Start Date Stop Date Status Note LastModified by Organization Details LastModified Time Augmentin 875 mg-125 mg tablet Take 1 tablet every 12 hours by oral route. 09/10 completed Not Available Not Available Not Available atorvasta tin 20 mg tablet TAKE ONE TABLET BY MOUTH AT BEDTIME 2022 active Not Available Not Available Not Avai lable venlafaxi ne 75 mg tablet TAKE ONE TABLET BY MOUTH TWICE DAILY 2022 active Not Available Not Available Not Avai lable ketoconaz ole 2 % shampoo APPLY TO THE AFFECTED AREA(S), LATHER, LEAVE IN PLACE FOR 5 MINUTES, AND THEN RINSE OFF WITH WATER BY TOPICAL ROUTE ONCE DAILY 2022 active Not Available Not Available Not Avai lable Klor-Con 10 mEq tablet,ex tended release Take 1 tablet every day by oral route. 2022 active Not Available Not Available Not Avai lable citalopra m 10 mg tablet Take 1 tablet every day by oral route. 02/28 completed Not Available Not Available Not Available venlafaxi ne 25 mg tablet Take 1 tablet twice a day by oral route. 03/27 completed Not Available Not Available Not Available lisinopri l 20 mg tablet TAKE ONE TABLET BY MOUTH EVERY DAY 2022 active 10mg daily Not Available Not Available Not Available ceftriaxo ne 1 gram solution for injection Take 1 g by injectio n route as directed . 04/30 completed 1 gram IM injectio n in office. Not Available Not Available Not Available Tylenol 500 mg tablet Take 1 tablet every 6 hours by oral route as needed. active Not Available Not Available No t Available Aricept 5 mg tablet Take 1 tablet every day by oral route. 03/27 completed Not Available Not Available Not Available aspirin 81 mg tablet Take 1 tablet twice a day by oral route. 03/27 completed 10/05/21 -takes bid per pt/famil y Not Available Not Available Not Available mupirocin 2 % topical ointment APPLY A SMALL AMOUNT TO THE AFFECTED AREA BY TOPICAL ROUTE 3 TIMES PER DAY 2022 active Not Available Not Available Not Avai lable Aricept 10 mg tablet 1/2 tab qd x one week then 1 tab qd 03/27 completed Not Available Not Available Not Available levofloxa benja 750 mg tablet Take 1 tablet every day by oral route as directed . 09/18 completed Not Available Not Available Not Available Bactrim DS 800 mg-160 mg tablet Take 1 tablet every 12 hours by oral route. 04/30 completed Not Available Not Available Not Available memantine 10 mg tablet Take 1 tablet twice a day by oral route. 03/28 completed Not Available Not Available Not Available memantine 5 mg tablet TAKE ONE TABLET BY MOUTH TWICE DAILY 2022 active Not Available Not Available Not Avai lable multivita min 05/22 completed Not Available Not Available Not Available Vitamin D 2,000 unit capsule Take 1 capsule every day by oral route. 03/28 completed Not Available Not Available Not Available Pradaxa 150 mg capsule One tablet twice daily on 340-B program 05/22 completed Not Available Not Available Not Available Eliquis 5 mg tablet TAKE ONE TABLET BY MOUTH TWICE DAILY 2022 active Not Available Not Available Not Avai lable Vitals Date Recorded Body height Heart rate Respiratory rate Body temperature Body mass index (BMI) Body weight Oxygen saturation Oxygen saturation in Arterial blood by Pulse oximetry Systolic And Diastolic Provider Name and Address Organization Details Last Updated DateTime 3 154.94 cm 86 /min 20 /min 97.9 [degF] 30.8 kg/m2 48630.5 6 g 95 % 95 % 122/78 mm[Hg] Romina Gomez [facility] 3 14:29:57 Date Recorded Body height Heart rate Respiratory rate Body temperature Body mass index (BMI) Body weight Oxygen saturation Oxygen saturation in Arterial blood by Pulse oximetry Systolic And Diastolic Provider Name and Address Organization Details Last Updated DateTime 3 154.94 cm 95 /min 20 /min 98 [degF] 30.6 kg/m2 79499.9 6 g 95 % 95 % 148/80 mm[Hg] Tabitha Fei [facility] 3 15:00:53 Date Recorded Body height Body mass index (BMI) Body weight Body temperature Respiratory rate Heart rate Oxygen saturation Oxygen saturation in Arterial blood by Pulse oximetry Provider Name and Address Organization Details Last Updated DateTime 3 154.94 cm 30 kg/m2 19375.1 9 g 97.2 [degF] 20 /min 85 /min 98 % 98 % Lizet [facility] 3 14:10:18 Date Recorded Body height Heart rate Respiratory rate Body temperature Body mass index (BMI) Body weight Oxygen saturation Oxygen saturation in Arterial blood by Pulse oximetry Systolic And Diastolic Provider Name and Address Organization Details Last Updated DateTime 2 154.94 cm 85 /min 20 /min 97.5 [degF] 31.2 kg/m2 06515.7 4 g 92 % 92 % 110/64 mm[Hg] Lizet [facility] 2 13:21:24 Social History Question Answer Notes LastModified by Organizat ion Details LastModified Time Tobacco Smoking Status Former Smoker smoked 5 cigs when 20 years old, started and quit 1954 Shital Pandey MD [address] [place], [address], [facility] 08/20/2022 13:03:11 How Much Tobacco Do You Chew? None [email or web address] Information not available 11/29/2020 What Is Your Code Status? Full Code [email or web address] Information not available 11/29/2020 Are You Deaf Or Do You Have Serious Difficulty Hearing? No [email or web address] Information not available 11/29/2020 Which Illicit Or Recreational Drugs Have You Used? None [email or web address] Information not available 11/29/2020 Hard Of Hearing Or Deaf In One Or Both Ears? No [email or web address] Information not available 11/29/2020 Legally Blind In One Or Both Eyes? No [email or web address] Information not available 11/29/2020 Live Alone Or With Others? Alone [email or web address] Information not available 11/29/2020 How Often Do You Need To Have Someone Help You When You Read Instructions, Pamphlets, Or Other Written Material From Your Doctor Or Pharmacy? 3-Sometime s [email or web address] Information not available 11/29/2020 What Was The Date Of Your Most Recent Tobacco Screening? 03/28/2023 [email or web address] Information not available 03/28/2023 What Is Your Current Pack Years? 10packyear s Information not available 08/20/2022 Relationship Status [email or web address] Information not available 11/29/2020 Seat Belts Used Routinely Yes [email or web address] Information not available 11/29/2020 At What Age Did You Start Smoking Tobacco? 20 Information not available 08/20/2022 Has Tobacco Cessation Counseling Been Provided? Yes Information not available 03/28/2023 On What Date Was Tobacco Cessation Counseling Provided? 03/28/2023 [email or web address] Information not available 03/28/2023 How Many Years Have You Smoked Tobacco? 0 Information not available 08/20/2022 Sex: Unknown Functional Status Question Answer Note LastModified by Organizat ion Details LastModified Time Do you or have you ever used any other forms of tobacco or nicotine? No Information not available 08/20/2022 What is your level of alcohol consumption? None [email or web address] Information not available 11/29/2020 Are you currently employed? No [email or web address] Information not available 11/29/2020 Are you able to walk independently without assistance or assistive devices? YESWOREST [email or web address] Information not available 11/29/2020 Do you or have you ever used e-cigarettes or vape? Never used electronic cigarettes Information not available 11/29/2020 What is your exercise level? Moderate [email or web address] Information not available 11/29/2020 Mental Status None recorded. Family History Relationship Description Onset Age of this Age Resolved Age Notes LastModified by Organization Details LastModified Time Mother Neoplasm of liver [email or web address] Not available 11/29 11:42:17 Mother Hypertensive disorder [email or web address] Not available 05/22 15:12:48 Mother Family history of malignant neoplasm Not available 05/22 15:13:17 Father Myocardial infarction [email or web address] Not available 12/2020 11:42:25 Maternal Grandfather Heart disease Not available 05/22 15:12:43 Sister Diabetes mellitus [email or web address] Not available 05/22 15:12:54 Sister Dementia [email or web address] Not availab le 05/22/2021 15:13:00 Sister Depressive disorder [email or web address] Not available 05/22 15:13:07 Medical History No medical history recorded. Gynecological HistoryNo gynecological history recorded. Obstetrics History GPAL:G 6 P 0 0 0 6 Type Value Living 6 Total 6 Immunizations Vaccine Type Date Status Note Provider Nam e and Address Organization Details Recorded Time Influenza, high-dose, quadrivalent, PF 1 completed [facility] 09/18/2021 17:51:53 Influenza, high-dose, quadrivalent, PF 2 completed [facility] 08/27/2022 18:15:36 COVID-19, mRNA, LNP-S, PF, 100 mcg/0.5mL dose or 50 mcg/0.25mL dose 1 completed Not Available [facility] 12/04/2023 19:34:43 COVID-19, mRNA, LNP-S, PF, 100 mcg/0.5mL dose or 50 mcg/0.25mL dose 1 completed Not Available [facility] 12/04/2023 19:34:43 COVID-19, mRNA, LNP-S, PF, 100 mcg/0.5mL dose or 50 mcg/0.25mL dose 2 completed Not Available [facility] 12/04/2023 19:34:43 Pneumococcal conjugate PCV20, polysaccharide [id number] conjugate, adjuvant, PF 2 completed Not Available [facility] 12/04/2023 19:34:43 Pneumococcal conjugate PCV20, polysaccharide [id number] conjugate, adjuvant, PF 2 completed Not Available [facility] 12/04/2023 19:34:43 COVID-19, mRNA, LNP-S, bivalent, PF, 50 mcg/0.5 mL or 25mcg/0.25 mL dose 2 completed Not Available [facility] 12/04/2023 19:34:43 Past Encounters Encounter ID Performer Location Encounter Start Date Encounter Closed Date Diagnosis/Indication Diagnosis SNOMED-CT Code Diagnosis ICD10 Code Diagnosis IMO Codes Diagnosis Note [id number] Shital Pandey MD [facility]. [address] [place] [phone] 11/29/2020 11:03:31 12/06/2020 12:12:57 Carotid artery stenosis 68122086 I65.29 Saw vascular surgeon who thought it was too risky to do surgery and at her age and with blood thinner and PE history Degenerati on of cervical intervertebral disc 29062187 M50.30 stable, uses tylenol as needed Dementia 53647192 F03.90 stable, offered neurology referral, patient and daughter declined, i recommend trial of memantine, follow up in 3 months History of pulmonary embolus 702027190 Z86.711 stable, continue pradaxa Impaired g lucose tolerance 5147554 R73.03 check a1c today Irritable bowel syndrome 49856212 K58.9 stable, not on any medication s Lumbar spondylosis 11730 0009 M47.896 stable, continue otc tylenol as needed Mixed hyperlipidemia 267 313578 E78.2 check lipid panel and continue atorvastat in 20 mg Vitamin D deficiency 347 94765 E55.9 check vit d level Osteoarthr itis of ankle 170083622 M19.079 tylenol as needed Long-term drug therapy 895017055 Z79.899 Moderate r ecurrent major depression 15503441 F33.1 stable continue venlafaxin e 25 mg bid Essential hypertension 65865701 I10 controlled , continue lisinopril 20 mg Screening mammography 24 848502 Z12.31 Screening for malignant neoplasm of colon 442405275 Z12.11 [id number] Shital Pandey MD [facility]. [facility] Jorge Nguyen [place] [address] 02/28/2021 14:48:16 03/05/2021 13:13:55 Mixed hyperlipidemia 447508020 E78.2 reviewed lipid panel and continue atorvastat in 20 mg Moderate r ecurrent major depression 63160443 F33.1 stable continue venlafaxin e 25 mg bid Essential hypertension 60605337 I10 controlled , continue lisinopril 20 mg Dementia 10868132 F03.90 Daughter and patient would like to see neurologis t, i recommend increase memantine to 10 mg bid, follow up in 1 month History of pulmonary embolus 724564138 Z86.711 stable, continue pradaxa, daughter would like to know how long she has to be on pradaxa, work up unclear and etiology unclear, will request records. I recommend referral to hematology Pain in lower limb 4766803 222 M79.269 I recommend tylenol bid for pain, I recommend home health PT, if no improvemen t i counseld daughter i recommend sports medicine [facility] [id number] [facility] [address] [facility] [place] [address] 05/22/2021 14:41:39 05/22/2021 16:56:46 Dementia 35076102 F03.90 - will do dementia labs, MRI brain and neuropsych testing - will start Aricept 5 mg qday for 1 week and then inc to 10 mg qday, educated about side effects - educated about disease course, driving precaution s, precaution s in kitchen, - talked to family members about POA, and help available in community and home health services [id number] Marcos Mittal MD [facility]. [facility] [place] [address] 06/04/2021 14:51:19 06/05/2021 21:03:22 Toothache [id number] K08.89 06/04/21-ons et yesterday of right lower posterior molar, no abscess noted- augmentin 875 bid x 7 days [id number] Shital Pandey MD [facility]. [address] [place], [place] [address] [place] [address] 06/21/2021 13:53:29 06/25/2021 16:39:18 Fatigue 95252700 R53.83 Dementia 26034025 F03.[address] Cerna, note reviewed says to start aricept, but i do not see in chart where it was sent in. taking memantine. Moderate r ecurrent major depression 86774209 F33.1 acute grief from sister's recent passing, I recommend increase venlafaxin e to 50 mg daily Abnormal urinalysis 1672 05598 R82.90 trace wbc and trace blood [id number] Shital Pandey MD [facility]. [address] [place], [place] [address] [place] [address] 09/04/2021 12:31:29 09/04/2021 17:39:51 [id number] Shital Pandey MD [facility]. [address] [place] [address] 09/10/2021 11:31:39 09/13/2021 12:22:19 COVID-19 [id number] U07.1 follow up after recent hospitaliz ation for covid with secondary bacterial PNA, slowly improving per patient and daughter, has home health, still very tired Community acquired pneumonia [id number] J18.9 finished IV antibiotic s and PO antibiotic s while admitted to hospital, has home health, crackles on exam today, CXR and labs today Anemia 401501412 D64.9 Respiratory crackles 484 61372 R09.89 [id number] Shital Pandey MD [facility]. [address] [place], [place] [address] [place] [address] 09/18/2021 14:53:31 09/21/2021 16:29:36 Community acquired pneumonia [id number] J18.9 finished IV antibiotic s and PO antibiotic s while admitted to hospital, at follow up repeat CXR showed continued opacity in left lung base with crackles on exam wiht continued fatigue and dyspnea, now patient has finished levofloxac in 750 mg daily for 5 days, feeling much better, Essential hypertension 77230793 I10 controlled , continue lisinopril 20 mg Dementia 76604988 F03.[address] Cerna, note reviewed says to start aricept, but i do not see in chart where it was sent in. taking memantine. Mixed hyperlipidemia 267 313063 E78.2 reviewed lipid panel and continue atorvastat in 20 mg Moderate r ecurrent major depression 41431720 F33.1 acute grief from sister's recent passing, I recommend increase venlafaxin e to 50 mg daily Administra tion of influenza vaccine 37007638 Z23 Anemia 633549499 D64.9 likely secondary to acute illness, was improved last check from inpatient, FIT negative, I recommend repeat cbc today [id number] Shital Pandey MD [facility]. [address] [place] [address] 10/17/2021 14:20:39 10/22/2021 07:38:51 Deep venous thrombosis of lower extremity 714856211 I82.409 seen in ED for right LE DVT, started on eliquis, I recommend continue eliquis, patient has history of previous PE. I recommend she remain on eliquis as long as she is not having falls at home or signs of bleeding Essential hypertension 18356804 I10 controlled , continue lisinopril 20 mg History of pulmonary embolus 984088395 Z86.711 Mixed hyperlipidemia 267 318014 E78.2 reviewed lipid panel and continue atorvastat in 20 mg Moderate r ecurrent major depression 61100477 F33.1 doing well, I recommend decrease venlafaxin e to 75 mg daily [id number] Shital Pandey MD [facility]. [address] [place] [address] 03/27/2022 11:53:41 03/28/2022 13:21:09 Essential hypertension 58860164 I10 taking lisinopril 20 mg, tolerating meidcation , denies side effects, continue, check labs Anemia 397448441 D64.9 check lab work Long-term drug therapy 195244872 Z79.899 At high risk for fall 45 07187352 69522711 Z91.89 Abnormal g ait due to impairment of balance 837235014 R26.89 Fatigue 55156693 R53.83 Dementia 10458170 F03.90 taking memantine 10 mg bid tolerating medicine, denies side effects. continue Vitamin D deficiency 347 39491 E55.9 check vit d level Mixed hyperlipidemia 267 531287 E78.2 taking atorvastat in 20 mg, tolerating statin, denies side effects, continue History of pulmonary embolus 499028725 Z86.711 history of PE, was on pradaxa and was stopped when thought to be high risk for falls but then had DVT within 6 months of stopping it, now on eliquis Impaired g lucose tolerance 1469838 R73.03 check a1c today [id number] Shital Pandey MD [facility]. [address] [place] [address] 08/20/2022 12:18:54 09/03/2022 14:49:29 Dementia 78036978 F03.90 taking memantine 10 mg bid tolerating medicine, denies side effects. continue Impaired mobility 528435 05 Z74.09 Senile asthenia 56794456 R54 Mixed hyperlipidemia 267 809783 E78.2 taking atorvastat in 20 mg, tolerating statin, denies side effects, continue Vitamin D deficiency 347 41505 E55.9 check vit d level Carotid ar johnathan stenosis 35999589 I65.29 Saw vascular surgeon who thought it was too risky to do surgery and at her age and with blood thinner and PE history Degenerati on of cervical intervertebral disc 41856317 M50.30 stable, uses tylenol as needed Vitamin B1 2 deficiency (non anemic) 92751724 E53.8 taking b12 orally, Long-term drug therapy 645352474 Z79.899 Administra tion of influenza vaccine 74997956 Z23 Adult heal th examination 851306780 Z00.00 Patient presented to office today for their Medicare Annual Wellness Visit. Education was provided on healthy nutrition, including a diet rich in fruits and vegetables , minimizing simple carbohydra snehal, salt, and saturated fats. Encouraged regular cardiovasc ular exercise such as walking at least 30 minutes daily, 5 times per week. Emphasized preventive health measures and educated pt on fall prevention and community- based lifestyle interventi ons to help reduce health risks and promote healthy living. Idiopathic peripheral neuropathy 90573867 G60.9 [id number] Sherry Valles APRN [facility] [address] [address] 03/28/2023 14:09:47 03/31/2023 14:48:22 Insect bite reaction 395427894 T63.481A Will treat as below. induration was marked and daughter will monitor. Take medication s as follows [id number] Shital Pandey MD [address] [place] [address] 04/17/2023 15:07:01 04/24/2023 16:13:00 Long-term drug therapy 480794996 Z79.574 [id number] Shital Pandey MD [address] [facility] [place] [address] 04/30/2023 14:31:50 05/01/2023 11:12:06 Carotid artery stenosis 75755591 I65.29 Saw vascular surgeon who thought it was too risky to do surgery and at her age and with blood thinner and PE history Dementia 00253590 F03.90 taking memantine 10 mg bid tolerating medicine, denies side effects. continue History of pulmonary embolus 100119983 Z86.711 history of PE, was on pradaxa and was stopped when thought to be high risk for falls but then had DVT within 6 months of stopping it, now on eliquis Lumbar spondylosis 87313 0009 M47.896 stable, continue otc tylenol as needed Vitamin D deficiency 347 72509 E55.9 check vit d level Degenerati on of cervical intervertebral disc 91598107 M50.30 stable, uses tylenol as needed Pain of ri ght hip joint 8045861573 38492 M25.551 bilateral knee and hip pain, patient unable to take nsaids due to bleeding risk with eliquis. I recommend XR hip jocelin and knee jocelin and Ortho referral for possible steroi injections Pain of le ft hip joint 7442961962 71117 M25.552 see above Pain of ri ght knee joint 1183291890 75772 M25.561 see above Pain of le ft knee joint 5370172845 56142 M25.562 see above Chronic ki dney disease stage 2 543925399 N18.2 Moderate r ecurrent major depression 70522151 F33.1 doing well per daughter, PHQ-9 unable to do secondary to dementia, taking venlafaxin e 75 mg bid, tolerating medication , denies side effects, continue [id number] Shital Pandey MD [address], [place] [address] 08/04/2023 13:56:12 08/12/2023 12:03:36 Dementia 36728243 F03.90 taking memantine 10 mg bid tolerating medicine, denies side effects. continue Moderate r ecurrent major depression 50392622 F33.1 doing well per daughter, PHQ-9 unable to do secondary to dementia, taking venlafaxin e 75 mg bid, tolerating medication , denies side effects, continue History of pulmonary embolus 932081671 Z86.711 history of PE, was on pradaxa and was stopped when thought to be high risk for falls but then had DVT within 6 months of stopping it, now on eliquis tolerating medication , denies side effects, continue Lumbar spondylosis 94188 0009 M47.896 stable, continue otc tylenol as needed Vitamin D deficiency 347 53942 E55.9 check vit d level Degenerati on of cervical intervertebral disc 20809617 M50.30 stable, uses tylenol as needed Carotid ar johnathan stenosis 26790972 I65.29 Saw vascular surgeon who thought it was too risky to do surgery and at her age and with blood thinner and PE history Chronic ki dney disease stage 2 645196780 N18.2 Abnormal g ait due to impairment of balance 145754101 R26.89 Essential hypertension 88497286 I10 taking lisinopril 10 mg, and potassium 10 meq, tolerating medication , denies side effects, continue, check labs Idiopathic peripheral neuropathy 53819779 G60.9 Long-term drug therapy 372460572 Z79.899 Seborrheic dermatitis of scalp 892431667 L21.0 Health Concerns Section Related Observation LastModified by Organization Giuseppe ortiz LastModified Time None Recorded Concern Status LastModified by Organization Details LastModified Time None Recorded Advance Directives Directive None Recorded Payers Insurance Date Sequence Insurance Name Policy Number Policy Delong Covered Member ID Delong Member ID Guarantor Name 08/12/2023 1 [employer] (MEDICARE REPLACEMENT/A DVANTAGE - HMO) [id number] Sonia Mallory [id number] Sonia Mallory Notes Date Note Type Note Provider Name and Address Organization Details Recorded Time 2 text/html Initial and Medicare Annual Wellness Visit [id number] by Patient PT presents with daughter stating she continues to have balance problems. She has not fallen but she losses her balance often. Pt has walker at home and will use around the home. Pt would like to get home health for PT and OT. PT would also to get her meds prescribed for 90 days vs 30 days. Recommended screening:Colorectal cancer screen: not indicated [id number]: prevnar 20 done Flu vaccine: patient receives yearly Shingles vaccine: patient has received Zostavax, recommend patient receive Shingrix, patient declines Tetanus/Diptheria: patient is current Lung cancer screening LDCT: patient has never smoked HIV testing: patient declines screening Hepatitis C screening: patient declines screening Mammogram: patient declines screening Pap exam: screening is not longer indicated Bone Density screening: patient declines screeningThis patient presents to clinic today for his/her Subsequent Annual Wellness visit.1. Medication List:2. Other providers:Medicare Wellness Checkup:3. How much have are you bothered by emotional problems such as feeling anxious, depressed, irritable, sad or downhearted and blue? slightly4. Has your physical and emotional health limited your social activities with family, friends, neighbors, or groups? quite a bit5. How much bodily pain have you generally had? no pain6. Is someone available to help you if you needed and wanted help? Yes, some.7. How would you rate your health in general? Good8. What is the hardest physical activity you can do for at least 2 minutes? very light9. Can you get to places out of walking distance without help? (For example, can you travel alone on buses or taxis, or drive your own car?) No10. Can you go shopping for groceries or clothes without someone's help? No11. Can you prepare your own meals? No12. Can you do your housework without help? No13. Do you need the help of another person with your personal care needs such as eating, bathing, dressing, or getting around the house? Yes14. Can you handle your own money without help? Yes15. How have things been going for you during the past 4 weeks? Good and bad parts about equal16. Are you having difficulties driving your car? Not applicable, I do not use a car17. Do you always fasten your seat belt when you are in a car? Yes, . How often have you been bothered from falling or being dizzy when standing up?bhzxew72. How often have you had trouble eating well?xzgnco61. How often have you been bothered by dental problems?wkahbh27. How often have you been bothered by difficulty hearing?. Have you fallen 2 or more times in the past year? Yes23. Are you afraid of falling? Yes24. Do you exercise for about 20 minutes three or more days a week? No, I usually do not exercise this much.25. Are you a smoker? No26. Have you ever thought you had a problem with abusing drugs or alcohol?no27. How often do you have trouble taking medicines the way you have been told to take them? Sometimes I take them as xhllsnmyrw52. How confident are you that you can control and mange most of your health problems? Not very . How much wine, beer, or other alcoholic beverages do you have? No alcohol at all Shital Pandey MD [address] [place], [address], [facility] 08/20/2022 19:15:20 3 text/html Insect BiteReported by PatientHPIFor associated symptoms, patient reportsswelling/redness. For location, patient reportsright upper extremity. For duration, patient reports1-2 days. Sonia is an 87 year old female presenting to clinic with her daughter. Sonia is c/o redness, swelling, erythema to right upper arm. States she noticed this area two days ago and it has progressively gotten worse. Her daughter is accompanying Mrs. Mallory as she suffers from dementia. The daughter states she has a high tolerance for pain. Denies visualizing any insects and does not know what she might have been exposed. Mrs. Mallory's daughter had pictures on her phone of the area on the initial day of symptoms. The area is indurated and covers approximately 1 inch in diameter. Sherry Valles APRN [address] [place], [address], [facility] 03/28/2023 18:24:01 3 text/html pain in bilateral hips and pain in knees dementiataking memantine 10 mg bid tolerating medicine, denies side effects. continueimpaired mobilitysenile astheniamixed hyperlipidemiataking atorvastatin 20 mg, tolerating statin, denies side effects, continuevitamin D deficiencycheck vit d levelcarotid artery stenosisSaw vascular surgeon who thought it was too risky to do surgery and at her age and with blood thinner and PE historydegeneration of cervical intervertebral discstable, uses tylenol as neededvitamin B12 deficiency (non anemic)taking b12 orally,long-term drug therapyidiopathic peripheral neuropathy Shital Pandey MD [facility] [place], [address], [facility] 04/30/2023 15:41:37 3 text/html pt presents for follow up after being discharged from [facility] on 08/01/2023. PT was placed on K+ 10meq upon discharge from long-term. PT has [facility] out for PT. PT blood pressure was changed in S, from lisinopril 20mg to 10mg. Daughter states Sonia is having a problem with lack of appetite. Pt may be havog gerdCase DescriptionDischarged [facility] following stay from 06/23 for weakness, altered LOC/SOB/cough and fall several days ago. Tested positive for COVID. CT Head: Neg. Monitored and supportive care given. Improved and able to got to SNF per recommendation of PT/OT. Lashanda Oates, RN Yard Spot[employer] Shital Pandey MD [address] [place], [address], [facility] 08/04/2023 14:56:56 OBGyn Episode No OBEpisode recorded.
--- OUTSIDE RECORDS SUMMARY | 2025-07-31 17:54 | XMS_ITS ---
Author Organization [facility] Care Team Providers Care Automotive Sales Manager Name Role Phone Hiwot Hercules Unavailable Unavailable Nguyễn Gustafson Unavailable Unavailable Allergies and adverse reactions Code CodeSystem Substance Reaction Severity StartDate Concern Status Latex Unknown Unknown active 2670 RXNORM Codeine Unknown Unknown active Care Team Name Role Address Phone Organization Dates Nguyễn Gustafson PCP [address], [place], [address], [place] (Office): : [facility] 06/30/2023 - 08/01/2023 Hiwot Hercules [address] [facility] [place], [address], [place] (Office): : : [facility] 06/30/2023 - 08/01/2023 Immunizations Immunization Status Vaccine Details Vaccine Code CodeSystem Date Notes Influenza completed Influenza, split virus, quadrivalent, injectable, contains preservative 158 CVX created date: 07/03/2023 administere d date: 08/20/2022 Per [facility] TB 1 Step Mantoux (PPD) completed tuberculin skin test; unspecified formulation lotNumber: [id number] expiry: 08/26/2026 Mfg: [id number] Given 0.1 ml Right Forearm intradermally 98 CVX created date: 06/30/2023 consent date: 06/30/2023 administere d date: 06/30/2023 SARS-COV-2 (COVID-19) completed SARS-COV-2 (COVID-19) vaccine, mRNA, spike protein, LNP, preservative free, 100 mcg/0.5mL dose or 50 mcg/0.25mL dose Mfg: Moderna Step 2 of Multi-step with next step required 207 CVX created date: 07/03/2023 administere d date: 02/01/2021 Per [facility] SARS-COV-2 (COVID-19) completed SARS-COV-2 (COVID-19) vaccine, mRNA, spike protein, LNP, preservative free, 100 mcg/0.5mL dose or 50 mcg/0.25mL dose Mfg: Moderna Step 1 of Multi-step with next step required 207 CVX created date: 07/03/2023 administere d date: 01/04/2021 Per [facility] PCV 20 completed Pneumococcal conjugate vaccine 20-valent (PCV20), polysaccharide [id number] conjugate, adjuvant, preservative free 216 CVX created date: 07/03/2023 administere d date: 06/06/2022 Per [facility] Bivalent Booster completed SARS-COV-2 (COVID-19) vaccine, mRNA, spike protein, LNP, bivalent, preservative free, 50 mcg/0.5 mL or 25 mcg/0.25 mL dose Mfg: Moderna Bivalent 229 CVX created date: 07/03/2023 administere d date: 08/16/2022 Per [facility] Mental Status Section Date Assessment Total Score Description 08/01/2023 BIMS 05 severe cognitiv e impairment CAM 0 No delirium ind icated PHQ-9 00 07/02/2023 BIMS 03 severe cognitiv e impairment CAM 6 Delirium indica tate PHQ-9 00 Insurance Providers Problems Problem # Description Date of onset Resolved Date Code CodeSystem Concern Status 1 PAIN, UNSPECIFIED 07/14/[address] active 2 TINEA UNGUIUM 07/01/[address] active 3 ABNORMAL POSTURE 06/30/[address] active 4 AGE-RELATED NUCLEAR CATARACT, BILATERAL 06/30/[address] active 5 AGE-RELATED OSTEOPOROSIS WITHOUT CURRENT PATHOLOGICAL FRACTURE 06/30/[address] active 6 COGNITIVE COMMUNICATION DEFICIT 06/30/[address] active 7 DYSPHAGIA, OROPHARYNGEAL PHASE 06/30/[address] active 8 MUSCLE WASTING AND ATROPHY, NOT ELSEWHERE CLASSIFIED, UNSPECIFIED SITE 06/30/[address] active 9 NEED FOR ASSISTANCE WITH PERSONAL CARE 06/30/[address] active 10 OTHER LACK OF COORDINATION 06/30/[address] active 11 OTHER PRIMARY THROMBOPHILIA 06/30/[address] active 12 OTHER THROMBOPHILIA 06/30/2007/10/[address] completed 13 UNSPECIFIED ABNORMALITIES OF GAIT AND MOBILITY 06/30/[address] active 14 BILATERAL PRIMARY OSTEOARTHRITIS OF HIP 06/26/202017120438468 SNOMED CT active 15 BILATERAL PRIMARY OSTEOARTHRITIS OF KNEE 06/26/[address] active 16 CHRONIC KIDNEY DISEASE, STAGE 2 (MILD) 06/26/[address] active 17 COVID-19 06/26/[address] active 18 DYSPHAGIA, UNSPECIFIED 06/26/20 23 07/01/[address] completed 19 ESSENTIAL (PRIMARY) HYPERTENSION 06/26/[address] active 20 HYPERLIPIDEMIA, UNSPECIFIED 06/26/20 23 06/26/[address] completed 21 IRRITABLE BOWEL SYNDROME, UNSPECIFIED 06/26/[address] active 22 MAJOR DEPRESSIVE DISORDER, RECURRENT, MODERATE 06/26/[address] active 23 METABOLIC ENCEPHALOPATHY 06/26/[address] active 24 MILD PROTEIN-CALORIE MALNUTRITION 06/26/[address] active 25 MIXED HYPERLIPIDEMIA 06/26/[address] active 26 MUSCLE WEAKNESS (GENERALIZED) 06/26/[address] active 27 OTHER IDIOPATHIC PERIPHERAL AUTONOMIC NEUROPATHY 06/26/[address] active 28 PAIN IN RIGHT HIP 06/26/[address] active 29 PERSONAL HISTORY OF COVID-19 06/26/[address] active 30 UNSPECIFIED DEMENTIA, MILD, WITHOUT BEHAVIORAL DISTURBANCE, PSYCHOTIC DISTURBANCE, MOOD DISTURBANCE, AND ANXIETY 06/26/[address] active 31 VITAMIN D DEFICIENCY, UNSPECIFIED 06/26/[address] active Reason for Referral No Reasons for Referral Entered Social History Social History Observation Description Start Date End Date Code Code System Current Smoking Status Tobacco smoking consumption unknown 818597769 SNOMED CT Sex Assigned At Female 1935 12172-0 [facility] Gender Identity Sexual Orientation Vital Signs Code Code System Vitals Name Values and Units Timing Information 9279-1 [facility] Respiratory Rate Value=20.0 Units=/m in 08/01/2023 8462-4 [facility] Blood Pressure-Diastolic Value=76 Un its=mmHg 08/01/2023 8480-6 [facility] Blood Pressure-Systolic Egctn=570 Un its=mmHg 08/01/2023 8867-4 [facility] Heart rate Value=80.0 Units=/min 03/2023 39674-7 [facility] O2 % BldC Oximetry Value=99.0 Units= % 08/01/2023 8310-5 [facility] Body Temperature Value=97.9 Units= F 08/01/2023 54229-4 [facility] Pain Level Value=0.0 08/01/2023 20791-1 [facility] Weight Misxt=811.4 Units=Lbs 12/2022 8302-2 LOINC Height Value=61.0 Units=Inches 07/01/2023
--- OUTSIDE RECORDS SUMMARY | 2025-07-31 17:54 | XMS_ITS ---
Author Name Interface, [id number] lity Address [address] [place] [address] [facility] Address [address] [place] [address] Allergies and Adverse Reactions Medication/Group Name Reaction Severity Date codeine 03/29/2021 latex 03/29/2021 hydrocodone 03/29/2021 Plan Date Type Value 03/29/2021 APPOINTMENT NEW PATIENT Reason for Visit NEW PATIENT Encounters Date Name 03/29/2021 Pulmonary embolism ( disorder) Medications Date Name Route Dose Frequency Instructions Start Date End Date Status Fill Status Indication 03/28 Dabigatran Oral PO BID active 03/29 Multivitam ins Oral Tablet PO daily active 03/28 Atorvastat in Oral PO HS active 03/28 Venlafaxin e Oral PO BID active 03/28 Lisinopril Oral PO DAILY active 03/28 Memantine Oral PO BID active 03/29 Cholecalci ferol Oral PO daily active Problems Diagnosis Status Date of Diagnosis Resolution Date Pulmonary embolism (disorder) Active Vital Signs Date Type Value 03/29/2021 Body Temperature 97.60 03/29/2021 Heart Beat 87.00 03/29/2021 Intravascular Systolic 153 03/29/2021 Intravascular Diastolic 93 03/29/2021 BSA 1.71 03/29/2021 Weight 168.00 03/29/2021 Height 59.00 03/29/2021 BMI 33.93 03/29/2021 Pain Scale 0.00
--- OUTSIDE RECORDS SUMMARY | 2025-07-31 17:54 | XMS_ITS | Patient Health Record ---
Author Organization [facility] Address [address] [facility] [place] [id number] Care Team Providers Care Traffic Police Officer Name Role Phone Non [facility] Provider, Provider Primary Care P migel Unavailable [address] Unavailable Reason For Referral No Information Immunizations Vaccine Route Administration Date Status Comme nts Coronavirus Moderna Bivalent Booster 18 & older IM Intramuscular 08/16/2022 Administered Plan Of Treatment No Information
--- OUTSIDE RECORDS SUMMARY | 2025-07-31 17:54 | XMS_ITS | CCD ---
Author Name Interface, [id number] lity Address [address] [place] [address] Organization [facility] Address [address] [place] [address] Care Team Providers Care Deicer Repairer Pneumatic Name Role Phone Alexey ORONA, Melvin Unavailable Unavailable Allergies and Adverse Reactions Medication/Group Name Reaction Severity Date codeine 03/29/2021 latex 03/29/2021 hydrocodone 03/29/2021 Reason for Visit NEW PATIENT Medications Date Name Route Dose Frequency Instructions Start Date End Date Status Fill Status Indication 03/29 Cholecalci ferol Oral PO daily active 03/28 Lisinopril Oral PO DAILY active 03/28 Venlafaxin e Oral PO BID active 03/28 Dabigatran Oral PO BID active 03/29 Multivitam ins Oral Tablet PO daily active 03/28 Memantine Oral PO BID active 03/28 Atorvastat in Oral PO HS active Problems Diagnosis Status Date of Diagnosis Resolution Date Pulmonary embolism (disorder) Active Social History Date Name Value 03/05/2021 Sex Female
--- NOTE | 2025-07-31 18:12 | ECG_ITS ---
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 Measurements Intervals [place] Rate: 70 P: 42 AR: 167 QRS: 38 QRSD: 85 T: 36 QT: 386 QTc: 419 Interpretive Statements SINUS RHYTHM Compared to ECG 01/14/2025 10:49:39 T-wave abnormality no longer present Electronically Signed On 07-31-2025 21:18:59 CDT by Alexi Resendez M.D. [email or web address]
[2025-07-31 18:14] VITALS: PULSE 76; O2SAT 96
--- NOTE | 2025-07-31 18:21 | CTR_ITS ---
PROCEDURE INFORMATION: Exam: CT Head Without Contrast Exam date and time: 07/31/2025 6:51 PM Age: 89 years old Clinical indication: Injury or trauma; Blunt trauma (contusions or hematomas); EMS arrival from [facility] for ground level fall with head strike. C/O neck pain. Anticoagulated. ; Additional info: Fall hit head TECHNIQUE: Imaging protocol: Computed tomography of the head without contrast. Radiation optimization: All CT scans at this facility use at least one of these dose optimization techniques: automated exposure control; mA and/or kV adjustment per patient size (includes targeted exams where dose is matched to clinical indication); or iterative reconstruction. COMPARISON: CT head wo con* [id number] 01/14/2025 11:31 AM RADIATION DOSE METRICS: Total DLP (mGy-cm): 1065 FINDINGS: Brain: Stable moderate atrophic changes. Again seen areas of decreased periventricular and subcortical white matter density consistent with chronic ischemic change. No acute appearing intracranial abnormality evident. No evidence of acute intracranial hemorrhage or mass. Normal novoa-white matter dilation. There is calcification of the vertebral arteries, basilar artery, and internal carotid arteries with numerous cavernous portion. The ectasia of the left vertebral artery Cerebral ventricles: Proportionate to sulci. Paranasal sinuses: Visualized sinuses are unremarkable. Some fluid or mucosal thickening posterior left sphenoid air cell. No basilar skull fracture seen. Mastoid air cells: Visualized mastoid air cells are well aerated. Bones: Unremarkable. No acute fracture. Soft tissues: Unremarkable. CT/CT head wo con* [id number] IMPRESSION: 1. Stable atrophic changes, chronic ischemic changes without acute appearing intracranial abnormality. 2. Vascular calcification. 3. Maybe a small amount of fluid possibly mucosal thickening left sphenoid air cell. No basilar skull fracture seen.
--- NOTE | 2025-07-31 18:21 | CTR_ITS ---
PROCEDURE INFORMATION: Exam: CT Cervical Spine Without Contrast Exam date and time: 07/31/2025 6:51 PM Age: 89 years old Clinical indication: Injury or trauma; Blunt trauma; EMS arrival from [place]way for ground level fall with head strike. C/O neck pain. Anticoagulated. ; Additional info: Fall neck pain TECHNIQUE: Imaging protocol: Computed tomography of the cervical spine without contrast. Radiation optimization: All CT scans at this facility use at least one of these dose optimization techniques: automated exposure control; mA and/or kV adjustment per patient size (includes targeted exams where dose is matched to clinical indication); or iterative reconstruction. COMPARISON: CT cervical spin wo con* [id number] 01/14/2025 11:35 AM RADIATION DOSE METRICS: Total DLP (mGy-cm): 214.9 FINDINGS: Bones: Degenerative changes throughout cervical spine . Marked degenerative changes between the anterior arch of C1 odontoid odontoid process of C2. Prominent subcortical cystic changes odontoid process. Marked degenerative changes in the lateral masses of C1 and C2 on the left. Narrowing of the C4-C5, C5-C6 , and C6-C7 disc spaces associated with irregularity of the endplates, anterior and posterior osteophytes. Milder degenerative at other levels. Degenerative changes cervical facet joints most marked mid cervical spine on the left. No central canal stenosis. Foraminal narrowing several levels. No acute appearing bony abnormalities. Lungs: Lung apices are clear. Soft tissues: No neck masses or significant adenopathy. Carotid bifurcation calcification bilaterally. CT/CT cervical spin wo con* [id number] IMPRESSION: 1. Marked degenerative changes. 2. No acute appearing bony abnormalities. 3. Foraminal narrowing at several levels. 4. Carotid bifurcation calcification.
[2025-07-31 18:33] LABS: Hematocrit 38.5 % (36-47); Hemoglobin 12.00 g/dL (11.27-16.99); Mean Corpuscular HGB Conc 31.2 g/dL (30-55); Mean Corpuscular Hemoglobin 30.1 pg (27-33); Mean Corpuscular Volume 96.5 fl (85-98); Nucleated Red Blood Cells % 0 %; Platelet Count 234 10^3/cmm (157-399); Red Blood Count 3.99 10^6/uL (3.85-5.65); White Blood Count 6.45 10^3/uL (3.29-11.43)
[2025-07-31 18:40] LABS: INR 1.02 (0.8-1.2); Prothrombin Time 14.10 SECONDS (12.1-14.9)
[2025-07-31 18:47] LABS: Alanine Aminotransferase 6 U/L (0-33); Albumin Level 3.9 g/dL (3.5-5.2); Alkaline Phosphatase 79 U/L (35-105); Anion Gap 16.0 (5-19); Aspartate Amino Transferase 15 U/L (0-32); Blood Urea Nitrogen 27 mg/dL (8-23); Calcium 9.7 mg/dL (8.5-10.5); Carbon Dioxide 26 mmol/L (22-29); Chloride 103 mmol/L (98-107); Creatinine Clr Calc Pharmacy 37.7024; Globulin 3.4 g/dL (1.3-4.6); Glucose 87 mg/dL (65-115); Osmolality Calculated 296 mOsm/kg (285-295); Potassium 4.0 mmol/L (3.5-5.1); Sodium 141 mmol/L (136-145); Total Protein 7.3 g/dL (6.6-8.7)
--- NOTE | 2025-07-31 19:10 | W.ED.FALL ---
HPI - Fall General: Chief Complaint: Fall Stated Complaint: left hip pain s/p fall Time Seen by Provider: 07/31/25 17:52 History of Present Illness: Patient is a 89-year-old female with a history of dementia who reportedly fell backwards off her walker at approximately 1515 today, striking her left shoulder and head. Patient is on blood thinners, raising concern for intracranial hemorrhage. She was given Tylenol at 15:30 for headache, but continued to have headache symptoms at 17:00, prompting this evaluation. The patient does not recall the fall event. Per family member present during the encounter, patient is demonstrating increased confusion compared to her baseline. Patient typically has memory deficits but is usually able to answer questions appropriately. 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 During the examination, patient endorsed neck pain with head turning and left shoulder pain that was transient. Related Data Home Medications ?Medication ?Instructions ?Recorded ?Confirmed acetaminophen 500 mg tablet 1,000 mg PO Q8H PRN Pain 12/31/24 03/02/25 apixaban 5 mg tablet (Eliquis) 5 mg PO BID 12/31/24 03/02/25 carbidopa 10 mg-levodopa 100 mg 1 tab PO TID 12/31/24 03/02/25 tablet hydrocodone 5 mg-acetaminophen 325 1 tab PO Q8H PRN Pain 12/31/24 03/02/25 mg tablet nystatin 100,000 unit/gram topical 1 applic topical Q4H 12/31/24 03/02/25 powder olanzapine 2.5 mg tablet 2.5 mg PO DAILY 12/31/24 03/02/25 potassium chloride 20 mEq 20 meq PO DAILY 12/31/24 03/02/25 tablet,extended release triamcinolone acetonide 0.1 % 1 applic topical BID 12/31/24 03/02/25 topical cream venlafaxine 75 mg tablet 75 mg PO BID 12/31/24 03/02/25 Allergies Allergy/AdvReac Type Severity Reaction Status Date / Time codeine Allergy Unknown Verified 03/02/25 10:50 PFSH ED PFSH: Social History Smoking and tobacco/nicotine status: never used tobacco/nicotine Physical Exam Const: COMMON NORMALS: alert EXAM LIMITATIONS: altered mental status GENERAL APPEARANCE: cooperative and frail appearing; not in distress and not anxious HENMT: COMMON NORMALS: normocephalic, atraumatic and Normal external nose present HEAD & SCALP: normocephalic and atraumatic FACE & SINUS: normal facial exam and face symmetric NOSE: Normal external nose present Eye: COMMON NORMALS: Equal, round and reactive pupils present and EOMs intact bilaterally PUPIL: Yes Equal, round and reactive pupils present Neck/C-Spine: CERVICAL SPINE: No Cervical spine tenderness and No step off deformity Chest: CHEST: Yes Symmetrical chest wall rise Resp: COMMON NORMALS: normal respiratory effort, No use of accessory muscles and clear to auscultation bilaterally EFFORT & INSPECTION: Yes symmetric chest movement AUSCULTATION: clear to auscultation bilaterally Cardio: COMMON NORMALS: regular rate and regular rhythm RATE: regular rate RHYTHM: regular rhythm GI: COMMON NORMALS: Soft to palpation PALPATION: Yes Soft to palpation and No Tenderness to palpation present (GI) Neuro: JESUS COMA SCALE: document GCS findings [place] [facility] coma scale eye opening: Spontaneous Jesus coma scale verbal response: Confused Jesus coma scale motor response: Obey commands [facility] coma scale total score: 14 COMMON NORMALS: moves all extremities and no focal motor deficits SENSORIUM/ORIENTATION: Yes alert Course Vital Signs: Vital signs: Vital Signs Temperature 98.2 F 07/31/25 17:50 Pulse Rate 73 07/31/25 20:05 Respiratory Rate 14 07/31/25 20:05 Blood Pressure 188/96 07/31/25 20:05 Pulse Oximetry 96 07/31/25 20:05 Oxygen Delivery Me thod Room Air 07/31/25 20:05 MDM - Fall Medical Decision Making BUN is elevated. Creatinine is 1. Patient is quite hypertensive. CBC and BMP are otherwise normal. Chest x-ray is negative for acute disease, showing some atelectasis in the left lower lung. Hip x-ray is negative. Cervical spine x-ray is negative for fracture or acute disease. Head CT is nonacute. No UTI. In the absence of any acute symptoms, she will be allowed to mcc. Return for any worsening symptoms. Currently stable for discharge. Lab Data 07/31/25 18:13 07/31/25 18:13 Radiology Impressions Chest X-Ray 07/31/25 17:50 IMPRESSION: 1. Hiatal hernia. 2. Borderline heart size. 3. When compared to previous study appearance of the increased density left lower lung suspicious for consolidation or atelectasis Hip/Pelvis X-Ray 07/31/25 17:50 IMPRESSION: 1. Demineralization consistent with patient's age. 2. Degenerative changes. 3. No acute appearing bony abnormalities are evident. Cervical Spine CT 07/31/25 18:21 IMPRESSION: 1. Marked degenerative changes. 2. No acute appearing bony abnormalities. 3. Foraminal narrowing at several levels. 4. Carotid bifurcation calcification. Head CT 07/31/25 18:21 IMPRESSION: 1. Stable atrophic changes, chronic ischemic changes without acute appearing intracranial abnormality. 2. Vascular calcification. 3. Maybe a small amount of fluid possibly mucosal thickening left sphenoid air cell. No basilar skull fracture seen. Laboratory Results WBC 6.45 10^3/uL (3.29-11.43) 07/31/25 18:13 RBC 3.99 10^6/uL (3.85-5.65) 07/31/25 18:13 Hgb 12.00 g/dL (11.27-16.99) 07/31/25 18:13 Hct 38.5 % (36-47) 07/31/25 18:13 MCV 96.5 fl (85-98) 07/31/25 18:13 MCH 30.1 pg (27-33) 07/31/25 18:13 MCHC 31.2 g/dL (30-55) 07/31/25 18:13 RDW 13.1 % (12.1-15.1) 07/31/25 18:13 Plt Count 234 10^3/cmm (157-399) 07/31/25 18:13 MPV 10.3 fL (7.4-10.4) 07/31/25 18:13 Neut % (Auto) 52.3 % 07/31/25 18:13 Lymph % (Auto) 39.4 % 07/31/25 18:13 [place] % (Auto) 6.0 % 07/31/25 18:13 Eos % (Auto) 1.4 % 07/31/25 18:13 Baso % (Auto) 0.6 % 07/31/25 18:13 Neut # (Auto) 3.37 10^3/uL (1.8-7.7) 07/31/25 18:13 Lymph # (Auto) 2.5 10^3/uL (0.8-4.8) 07/31/25 18:13 [place] # (Auto) 0.4 10^3/uL (0.2-0.9) 07/31/25 18:13 Eos # (Auto) 0.1 10^3/uL (0.0-0.8) 07/31/25 18:13 Baso # (Auto) 0.0 10^3/uL (0.0-0.1) 07/31/25 18:13 Nucleated RBC % (auto) 0 % 07/31/25 18:13 Nucleated RBCs # 0.0 /100WBC 07/31/25 18:13 PT 14.10 SECONDS (12.1-14.9) 07/31/25 18:13 INR 1.02 (0.8-1.2) 07/31/25 18:13 Sodium 141 mmol/L (136-145) 07/31/25 18:13 Potassium 4.0 mmol/L (3.5-5.1) 07/31/25 18:13 Chloride 103 mmol/L (98-107) 07/31/25 18:13 Carbon Dioxide 26 mmol/L (22-29) 07/31/25 18:13 Anion Gap 16.0 (5-19) 07/31/25 18:13 BUN 27 mg/dL (8-23) H 07/31/25 18:13 Creatinine 1.0 mg/dL (0.5-0.9) H 07/31/25 18:13 GFR Calculation Not Reportable 07/31/25 18:13 Glucose 87 mg/dL (65-115) 07/31/25 18:13 Calculated Osmolality 296 mOsm/kg (285-295) H 07/31/25 18:13 Calcium 9.7 mg/dL (8.5-10.5) 07/31/25 18:13 Total Bilirubin 0.2 mg/dL (0.15-1.2) 07/31/25 18:13 AST 15 U/L (0-32) 07/31/25 18:13 ALT 6 U/L (0-33) 07/31/25 18:13 Alkaline Phosphatase 79 U/L (35-105) 07/31/25 18:13 Total Protein 7.3 g/dL (6.6-8.7) 07/31/25 18:13 Albumin 3.9 g/dL (3.5-5.2) 07/31/25 18:13 Globulin 3.4 g/dL (1.3-4.6) 07/31/25 18:13 Urine Color Yellow (Yellow) 07/31/25 19:10 Urine Appearance Clear (CLEAR) 07/31/25 19:10 Urine pH 7 (5-7) 07/31/25 19:10 Ur Specific [place] 1.010 (1.005-1.030) 07/31/25 19:10 Urine Protein Neg (Negative) 07/31/25 19:10 Urine Glucose (UA) Norm (Normal) 07/31/25 19:10 Urine Ketones Negative (Negative) 07/31/25 19:10 Urine Blood 2+ (Negative) H 07/31/25 19:10 Urine Nitrate Negative (Negative) 07/31/25 19:10 Urine Bilirubin Neg (Negative) 07/31/25 19:10 Urine Urobilinogen Norm mg/dL (Negative) 07/31/25 19:10 Ur Leukocyte Esterase Negative (Negative) 07/31/25 19:10 Urine RBC 10-15 /hpf (0-2) H 07/31/25 19:10 Urine WBC 10-15 /hpf (0-5) H 07/31/25 19:10 Ur Squamous Epith Cells 0-4 /hpf (0-5) H 07/31/25 19:10 Amorphous Sediment Not Reportable 07/31/25 19:10 Urine Bacteria 4+ /hpf (NONE) H 07/31/25 19:10 All radiology interpretation(s) finalized by discharge Discharge Plan Discharge Patient Disposition: Home Clinical Impression: Fall, Hypertension, Concussion Condition: Stable Prescriptions: No Action venlafaxine 75 mg Tablet 75 mg PO BID hydrocodone-acetaminophen 5-325 mg Tablet 1 tab PO Q8H PRN (Reason: Pain) olanzapine 2.5 mg Tablet 2.5 mg PO DAILY acetaminophen 500 mg Tablet 1,000 mg PO Q8H PRN (Reason: Pain) triamcinolone acetonide 0.1 % Cream 1 applic TOPICAL BID Rx Instructions: apply a thin layer to affected area topically twice daily carbidopa-levodopa 10-100 mg Tablet 1 tab PO TID nystatin 100,000 unit/gram Powder 1 applic TOPICAL Q4H Rx Instructions: APPLY TO ABDOMINAL FOLD OR UNDERSIDE OF EACH BREAST EVERY 4 HOURS NEEDED FOR YEAST/REDNESS Eliquis 5 mg Tablet 5 mg PO BID potassium chloride 20 mEq Tablet Extended Release 20 meq PO DAILY Discharge Orders: Discharge ED (Routine); Ordered 07/31/25 Ordered By: Luigi Campbell Referrals: Giuseppe Torres MD [Primary Care Provider, Family Practice] - 1-3 days Patient Instructions: Concussion (ED), Hypertension (ED), Opioid Safety, Pain Management, Patient Portal & Kassi Instructions Activity Restrictions/Additional Instructions: Return for worsening mental status, worsening headache, any other concerning symptoms. Follow-up with your doctor. Call Friday for an appointment. Print Language: Maltese Coding Level of Care Code ED Restaurant Expeditor for Rachel Nelson
[2025-07-31 20:05] VITALS: BP 188/96; PULSE 73; RESP 14; O2SAT 96
[2025-07-31] MEDS: labetalol 5 mg/mL SDV 20mL 10 MG IVP (20:06)
[2025-07-31 20:13] LABS: Glucose Urine UA Norm (Normal); Nitrate Urine Negative (Negative); Specific Gravity, Urine 1.010 (1.005-1.030)
[2025-07-31 20:18] LABS: Add Urine Microscopic? YES; UA Manual Slide Review YES
[2025-07-31 23:01] VITALS: BP 186/69; PULSE 67; RESP 16; O2SAT 96
== END 2025-07-31 23:03 | disposition home or self-care (01) ==
PROVIDERS: Emergency Medicine; Emergency Provider Emergency Medicine; PCP Family Medicine
DX: S06.0X0A Concussion without loss of consciousness, initial encounter (principal); I10 Essential (primary) hypertension; Z79.01 Long term (current) use of anticoagulants; W19.XXXA Unspecified fall, initial encounter
CPT/HCPCS: 36415; 70450; 71045; 72125; 73502; 80053; 81001; 85025; 85610; 87077; 87086; 87186; 93005; 96374; 99285; J3490; J9999

== ENCOUNTER 2025-08-15 17:24 | Emergency (ER) | payer MEDICARE, SELFPAY ==
[2025-08-15 17:27] VITALS: BP 195/84; PULSE 70; RESP 14; TEMP 36.4; O2SAT 96
--- NOTE | 2025-08-15 17:33 | XRR_ITS ---
PROCEDURE INFORMATION: Exam: XR Chest Exam date and time: 08/15/2025 5:40 PM Age: 89 years old Clinical indication: Pain; Chest pressure; Additional info: Chest pain TECHNIQUE: Imaging protocol: Radiologic exam of the chest. Views: 1 view. COMPARISON: CR (CHEST, ) 07/31/2025 5:51 PM FINDINGS: Lungs: No definite acute infiltrate or effusion. A few scattered nonspecific although chronic appearing pulmonary strands. Pleural spaces: Unremarkable. No pleural effusion. No pneumothorax. Heart/Mediastinum: Unremarkable. No cardiomegaly. Vasculature: Aortic atherosclerosis. Bones/joints: Unremarkable. XR/XR chest 1V portable [id number] IMPRESSION: No definite acute infiltrate or effusion.
--- NOTE | 2025-08-15 17:33 | CTR_ITS ---
PROCEDURE INFORMATION: Exam: CT Head Without Contrast Exam date and time: 08/15/2025 5:54 PM Age: 89 years old Clinical indication: Altered mental status/memory loss; PT arrives from [place] from memory unit with C/O AMS. PT responds to painful stimuli, but other culver appears obtunded. PT lkw was around 10 am today TECHNIQUE: Imaging protocol: Computed tomography of the head without contrast. Radiation optimization: All CT scans at this facility use at least one of these dose optimization techniques: automated exposure control; mA and/or kV adjustment per patient size (includes targeted exams where dose is matched to clinical indication); or iterative reconstruction. COMPARISON: CT head wo con* [id number] 07/31/2025 6:51 PM RADIATION DOSE METRICS: Total DLP (mGy-cm): 938.39 FINDINGS: Brain: See Cerebral ventricles finding. Cerebral ventricles: Mild involutional changes of the ventricles and sulci. Chronic small-vessel ischemic change. Paranasal sinuses: Visualized sinuses are unremarkable. No fluid levels. Mastoid air cells: Visualized mastoid air cells are well aerated. Bones: Unremarkable. No acute fracture. Soft tissues: Unremarkable. CT/CT head wo con* [id number] IMPRESSION: No acute intracranial abnormality. Chronic incidentals as above.
--- OUTSIDE RECORDS SUMMARY | 2025-08-15 17:33 | XMS_ITS ---
Author Name Interface, [id number] lity Address [address] [place] [address] [id number] [facility] Address [address] [place] [address] Allergies and Adverse Reactions Medication/Group Name Reaction Severity Date codeine 03/29/2021 latex 03/29/2021 hydrocodone 03/29/2021 Plan Date Type Value 03/29/2021 APPOINTMENT NEW PATIENT Reason for Visit NEW PATIENT Encounters Date Name 03/29/2021 Pulmonary embolism ( disorder) Medications Date Name Route Dose Frequency Instructions Start Date End Date Status Fill Status Indication 03/28 Memantine Oral PO BID active 03/29 Cholecalci ferol Oral PO daily active 03/28 Atorvastat in Oral PO HS active 03/28 Lisinopril Oral PO DAILY active 03/29 Multivitam ins Oral Tablet PO daily active 03/28 Dabigatran Oral PO BID active 03/28 Venlafaxin e Oral PO BID active Problems Diagnosis Status Date of Diagnosis Resolution Date Pulmonary embolism (disorder) Active Vital Signs Date Type Value 03/29/2021 Body Temperature 97.60 03/29/2021 Heart Beat 87.00 03/29/2021 Intravascular Systolic 153 03/29/2021 Intravascular Diastolic 93 03/29/2021 BSA 1.71 03/29/2021 Weight 168.00 03/29/2021 Height 59.00 03/29/2021 BMI 33.93 03/29/2021 Pain Scale 0.00
--- OUTSIDE RECORDS SUMMARY | 2025-08-15 17:33 | XMS_ITS | Patient Health Record ---
Author Organization [facility] Address [address] [place] [id number] Care Team Providers Care Warp Hanger Name Role Phone Non [facility] Provider, Provider Primary Care P migel Unavailable [address] [facility] Unavailable Reason For Referral No Information Immunizations Vaccine Route Administration Date Status Comme nts Coronavirus Moderna Bivalent Booster 18 & older IM Intramuscular 08/16/2022 Administered Plan Of Treatment No Information
[2025-08-15 18:13] VITALS: BP 176/85; PULSE 73; RESP 14; O2SAT 95
[2025-08-15 18:21] LABS: Troponin(5th) Baseline 13 ng/L (0-10)
[2025-08-15 18:29] LABS: Hematocrit 36.7 % (36-47); Hemoglobin 11.50 g/dL (11.27-16.99); Mean Corpuscular HGB Conc 31.3 g/dL (30-55); Mean Corpuscular Hemoglobin 29.4 pg (27-33); Mean Corpuscular Volume 93.9 fl (85-98); Nucleated Red Blood Cells % 0 %; Platelet Count 240 10^3/cmm (157-399); Red Blood Count 3.91 10^6/uL (3.85-5.65); White Blood Count 7.10 10^3/uL (3.29-11.43)
--- NOTE | 2025-08-15 18:30 | ECG_ITS ---
[facility] Test Date: 2025-08-15 Pat Name: Caryn Mallory Department: Room: Gender: Female Easter Bunny: : 1935 Requested By: Chin Corral Order Number: [id number] MD: Alexi Resendez M.D. Measurements Intervals [place] Rate: 72 P: 43 [place]: 185 QRS: 50 QRSD: 95 T: 77 QT: 402 QTc: 440 Interpretive Statements SINUS RHYTHM Compared to ECG 07/31/2025 18:12:01 No significant changes Electronically Signed On 08-16-2025 19:16:56 CDT by Alexi Resendez M.D. [email or web address]
[2025-08-15 18:31] LABS: Alanine Aminotransferase 14 U/L (0-33); Albumin Level 4.3 g/dL (3.5-5.2); Alkaline Phosphatase 85 U/L (35-105); Anion Gap 14.0 (5-19); Aspartate Amino Transferase 17 U/L (0-32); Blood Urea Nitrogen 26 mg/dL (8-23); Calcium 9.7 mg/dL (8.5-10.5); Carbon Dioxide 26 mmol/L (22-29); Chloride 101 mmol/L (98-107); Creatinine Clr Calc Pharmacy 42.0151; Globulin 3.0 g/dL (1.3-4.6); Glucose 92 mg/dL (65-115); Osmolality Calculated 288 mOsm/kg (285-295); Potassium 4.0 mmol/L (3.5-5.1); Sodium 137 mmol/L (136-145); Thyroid Stimulating Hormone 3.50 uIU/mL (0.27-4.20); Total Protein 7.3 g/dL (6.6-8.7)
[2025-08-15 18:54] LABS: Glucose Urine UA Negative (Normal); Nitrate Urine Negative (Negative); Specific Gravity, Urine 1.013 (1.005-1.030)
[2025-08-15 19:11] LABS: Add Urine Microscopic? YES; UA Manual Slide Review YES
[2025-08-15 20:50] LABS: Troponin 5 2HR 12.99 ng/L (0-10)
[2025-08-15 20:51] LABS: Troponin 5 2HR Delta -0.01 ABS# (0-10)
--- NOTE | 2025-08-15 21:20 | W.ED.AMS ---
HPI - Altered Mental Status General: Chief Complaint: Altered Mental Status Stated Complaint: ams - Time Seen by Provider: 08/15/25 17:33 History of Present Illness: 89-year-old female with history of dementia from a memory unit was brought in for altered mental status. [facility] staff report she was restless last night and was last seen at her normal baseline around 10 a.m. today, though they are unsure of her true baseline mentation. On arrival she appears somnolent but responds to my questions. No additional symptoms were reported. No recent illnesses, injuries, or medication changes were mentioned Related Data Home Medications ?Medication ?Instructions ?Recorded ?Confirmed acetaminophen 500 mg tablet 1,000 mg PO Q8H PRN Pain 12/31/24 03/02/25 apixaban 5 mg tablet (Eliquis) 5 mg PO BID 12/31/24 03/02/25 carbidopa 10 mg-levodopa 100 mg 1 tab PO TID 12/31/24 03/02/25 tablet hydrocodone 5 mg-acetaminophen 325 1 tab PO Q8H PRN Pain 12/31/24 03/02/25 mg tablet nystatin 100,000 unit/gram topical 1 applic topical Q4H 12/31/24 03/02/25 powder olanzapine 2.5 mg tablet 2.5 mg PO DAILY 12/31/24 03/02/25 potassium chloride 20 mEq 20 meq PO DAILY 12/31/24 03/02/25 tablet,extended release triamcinolone acetonide 0.1 % 1 applic topical BID 12/31/24 03/02/25 topical cream venlafaxine 75 mg tablet 75 mg PO BID 12/31/24 03/02/25 Allergies Allergy/AdvReac Type Severity Reaction Status Date / Time codeine Allergy Unknown Verified 03/02/25 10:50 [facility] ED PFSH: Social History Smoking and tobacco/nicotine status: never used tobacco/nicotine Physical Exam Const: COMMON NORMALS: no acute distress and alert HENMT: COMMON NORMALS: normocephalic and atraumatic HEAD & SCALP: normocephalic and atraumatic Eye: COMMON NORMALS: Equal, round and reactive pupils present, EOMs intact bilaterally and no scleral icterus PUPIL: Yes Equal, round and reactive pupils present Resp: COMMON NORMALS: normal respiratory effort and No retractions Cardio: COMMON NORMALS: regular rate, regular rhythm and No murmurs present (Cardio) RATE: regular rate RHYTHM: regular rhythm GI: COMMON NORMALS: Normal to inspection, nondistended, normoactive bowel sounds present, Soft to palpation and non-tender PALPATION: Yes Soft to palpation Neuro: SENSORIUM/ORIENTATION: Yes alert OTHER: Pleasantly demented, no lateralizing deficits of strength or sensation. Skin: COMMON NORMALS: no rashes or lesions noted GENERAL SKIN EXAM: no rashes or lesions noted Course Vital Signs: Vital signs: Vital Signs Temperature 97.6 F 08/15/25 17:27 Pulse Rate 73 08/15/25 18:13 Respiratory Rate 14 08/15/25 18:13 Blood Pressure 176/85 08/15/25 18:13 Pulse Oximetry 95 08/15/25 18:13 Oxygen Delivery Me thod Room Air 08/15/25 17:27 MDM - Altered Mental Status Medical Decision Making 89-year-old female with dementia presents from a memory unit with acute altered mental status. Staff note restlessness overnight and last known normal around 10 a.m., baseline mentation unclear. On exam, obtunded, responsive to pain only. Vitals notable for HR 75, RR 15, SpO2 97% on room air. Physical examination: clear lungs, normal heart sounds, normal bowel sounds, trace lower extremity edema, neurologic status as above. CT brain, EKG, chest x-ray, labs, urinalysis are all reassuring with no evidence of acute process. I do not suspect stroke, seizure, infection, or anything requiring hospitalization. After resting for roughly 1 hour, she awoke and appears to be happy and in no distress and what I suspect to be at her baseline based on prior notes. As such, she will be discharged back to her memory care facility in stable condition Lab Data 08/15/25 17:46 08/15/25 17:46 Radiology Impressions Chest X-Ray 08/15/25 17:33 IMPRESSION: No definite acute infiltrate or effusion. Head CT 08/15/25 17:33 IMPRESSION: No acute intracranial abnormality. Chronic incidentals as above. Laboratory Results WBC 7.10 10^3/uL (3.29-11.43) 08/15/25 17:46 RBC 3.91 10^6/uL (3.85-5.65) 10/20/25 17:46 Hgb 11.50 g/dL (11.27-16.99) 08/15/25 17:46 Hct 36.7 % (36-47) 08/15/25 17:46 MCV 93.9 fl (85-98) 08/15/25 17:46 MCH 29.4 pg (27-33) 08/15/25 17:46 MCHC 31.3 g/dL (30-55) 08/15/25 17:46 RDW 13.2 % (12.1-15.1) 08/15/25 17:46 Plt Count 240 10^3/cmm (157-399) 08/15/25 17:46 MPV 10.1 fL (7.4-10.4) 08/15/25 17:46 Neut % (Auto) 53.4 % 08/15/25 17:46 Lymph % (Auto) 38.2 % 08/15/25 17:46 [place] % (Auto) 7.0 % 08/15/25 17:46 Eos % (Auto) 1.0 % 08/15/25 17:46 Baso % (Auto) 0.3 % 08/15/25 17:46 Neut # (Auto) 3.79 10^3/uL (1.8-7.7) 08/15/25 17:46 Lymph # (Auto) 2.7 10^3/uL (0.8-4.8) 08/15/25 17:46 [place] # (Auto) 0.5 10^3/uL (0.2-0.9) 08/15/25 17:46 Eos # (Auto) 0.1 10^3/uL (0.0-0.8) 08/15/25 17:46 Baso # (Auto) 0.0 10^3/uL (0.0-0.1) 08/15/25 17:46 Nucleated RBC % (auto) 0 % 08/15/25 17:46 Nucleated RBCs # 0.0 /100WBC 08/15/25 17:46 Sodium 137 mmol/L (136-145) 08/15/25 17:46 Potassium 4.0 mmol/L (3.5-5.1) 08/15/25 17:46 Chloride 101 mmol/L (98-107) 08/15/25 17:46 Carbon Dioxide 26 mmol/L (22-29) 08/15/25 17:46 Anion Gap 14.0 (5-19) 08/15/25 17:46 BUN 26 mg/dL (8-23) H 08/15/25 17:46 Creatinine 0.9 mg/dL (0.5-0.9) 08/15/25 17:46 GFR Calculation Not Reportable 08/15/25 17:46 Glucose 92 mg/dL (65-115) 08/15/25 17:46 Calculated Osmolality 288 mOsm/kg (285-295) 08/15/25 17:46 Calcium 9.7 mg/dL (8.5-10.5) 08/15/25 17:46 Total Bilirubin 0.3 mg/dL (0.15-1.2) 08/15/25 17:46 AST 17 U/L (0-32) 08/15/25 17:46 ALT 14 U/L (0-33) 08/15/25 17:46 Alkaline Phosphatase 85 U/L (35-105) 08/15/25 17:46 Troponin T Baseline 13 ng/L (0-10) H 08/15/25 17:46 Troponin T 120 Minute 12.99 ng/L (0-10) H 08/15/25 20:05 Delta Troponin T -0.01 ABS# (0-10) L 08/15/25 20:05 Total Protein 7.3 g/dL (6.6-8.7) 08/15/25 17:46 Albumin 4.3 g/dL (3.5-5.2) 08/15/25 17:46 Globulin 3.0 g/dL (1.3-4.6) 08/15/25 17:46 TSH 3.50 uIU/mL (0.27-4.20) 08/15/25 17:46 Urine Color Yellow (Yellow) 08/15/25 18:42 Urine Appearance Clear (CLEAR) 08/15/25 18:42 Urine pH 7.5 (5-7) 08/15/25 18:42 Ur Specific [place] 1.013 (1.005-1.030) 08/15/25 18:42 Urine Protein Negative (Negative) 08/15/25 18:42 Urine Glucose (UA) Negative (Normal) 08/15/25 18:42 Urine Ketones Negative (Negative) 08/15/25 18:42 Urine Blood Non-haemolysed trace (Negative) 08/15/25 18:42 Urine Nitrate Negative (Negative) 08/15/25 18:42 Urine Bilirubin Negative (Negative) 08/15/25 18:42 Urine Urobilinogen 0.2 mg/dL (Negative) 08/15/25 18:42 Ur Leukocyte Esterase Negative (Negative) 08/15/25 18:42 Urine RBC 0-4 /hpf (0-2) H 08/15/25 18:42 Urine WBC Rare /hpf (0-5) 08/15/25 18:42 Ur Squamous Epith Cells None /hpf (0-5) 08/15/25 18:42 Amorphous Sediment Not Reportable 08/15/25 18:42 Urine Bacteria None /hpf (NONE) 08/15/25 18:42 All radiology interpretation(s) finalized by discharge EKG Data EKG 1: Interpretation: Time?1830?normal sinus rhythm, rate of 72, no ST segment elevation or depression, no T wave inversions, QTc = 425 Discharge Plan Discharge Patient Disposition: Home Clinical Impression: Suspected condition not found Condition: Stable Prescriptions: No Action venlafaxine 75 mg Tablet 75 mg PO BID hydrocodone-acetaminophen 5-325 mg Tablet 1 tab PO Q8H PRN (Reason: Pain) olanzapine 2.5 mg Tablet 2.5 mg PO DAILY acetaminophen 500 mg Tablet 1,000 mg PO Q8H PRN (Reason: Pain) triamcinolone acetonide 0.1 % Cream 1 applic TOPICAL BID Rx Instructions: apply a thin layer to affected area topically twice daily carbidopa-levodopa 10-100 mg Tablet 1 tab PO TID nystatin 100,000 unit/gram Powder 1 applic TOPICAL Q4H Rx Instructions: APPLY TO ABDOMINAL FOLD OR UNDERSIDE OF EACH BREAST EVERY 4 HOURS NEEDED FOR YEAST/REDNESS Eliquis 5 mg Tablet 5 mg PO BID potassium chloride 20 mEq Tablet Extended Release 20 meq PO DAILY Discharge Orders: Discharge ED (Routine); Ordered 08/15/25 Ordered By: Chin Allen Referrals: Giuseppe Torres MD [Primary Care Provider, Family Practice] Discharge Diet: Usual diet Discharge Activity: Increase activity as tolerated Patient Instructions: Altered Mental Status (ED), Patient Portal & Kassi Instructions Activity Restrictions/Additional Instructions: Patient remained hemodynamically stable throughout her ED course. CT of the brain, EKG, chest x-ray, blood work, urinalysis are all reassuring with no evidence of acute process requiring hospitalization or further intervention. After taking a nap, she woke up and appeared to be at her mental baseline and in no distress. Print Language: Moroccan Coding Level of Care Code ED Parking Worker for Rachel Nelson
== END 2025-08-15 21:34 | disposition home or self-care (01) ==
PROVIDERS: Emergency Provider Student in an Organized Health Care Education/Training Program; PCP Family Medicine
DX: Z03.89 Encounter for observation for other suspected diseases and conditions ruled out (principal); Z79.01 Long term (current) use of anticoagulants
CPT/HCPCS: 36415; 36416; 70450; 71045; 80053; 81001; 82962; 84443; 84484; 85025; 93005; 99285; J9999

== ENCOUNTER 2025-08-16 09:20 | Emergency (ER) | payer MEDICARE, SELFPAY ==
[2025-08-16 09:23] VITALS: BP 179/90; PULSE 65; RESP 18; TEMP 36.9; O2SAT 93
--- NOTE | 2025-08-16 09:24 | XRR_ITS ---
PROCEDURE INFORMATION: Exam: XR Chest Exam date and time: 08/16/2025 9:28 AM Age: 89 years old Clinical indication: Cough and dyspnea; Additional info: Dyspnea/cough TECHNIQUE: Imaging protocol: Radiologic exam of the chest. Views: 1 view. COMPARISON: CR (CHEST, ) 08/15/2025 5:40 PM FINDINGS: Lungs: There is a background of emphysema, bronchiectasis and pulmonary fibrosis. Stable strandy and hazy opacities are seen in the lung bases, left slightly more prominent than right. This likely represents atelectasis versus parenchymal or pleural scarring. Pleural spaces: See Lungs finding. Heart/Mediastinum: A double shadow and gas density is seen in the retrocardiac region compatible with a hiatal hernia. Bones/joints: Unremarkable. XR/XR chest 1V portable [id number] IMPRESSION: 1. There are no acute chest findings. Essentially stable appearance of the chest compared with yesterday's examination. 2. Probable prominent hiatal hernia.
--- NOTE | 2025-08-16 09:27 | W.ED.GENADLT ---
HPI - General Adult General: Chief complaint: General Medical Stated complaint: Weakness Time Seen by Provider: 08/16/25 09:22 History of Present Illness: 89-year-old female presents to the emergency room with complaints of altered mental status has been ongoing for last several days she has a history of Parkinson's she does live at assisted care at the intermediate. She was recently treated for a UTI just completed the oral antibiotics. She is [place] sluggish and difficult to arouse when she first arrived here. Associated symptoms: Deny chest pain, dyspnea or rash Related Data Home Medications ?Medication ?Instructions ?Recorded ?Confirmed acetaminophen 500 mg tablet 1,000 mg PO Q8H PRN Pain 12/31/24 03/02/25 apixaban 5 mg tablet (Eliquis) 5 mg PO BID 12/31/24 03/02/25 carbidopa 10 mg-levodopa 100 mg 1 tab PO TID 12/31/24 03/02/25 tablet hydrocodone 5 mg-acetaminophen 325 1 tab PO Q8H PRN Pain 12/31/24 03/02/25 mg tablet nystatin 100,000 unit/gram topical 1 applic topical Q4H 12/31/24 03/02/25 powder olanzapine 2.5 mg tablet 2.5 mg PO DAILY 12/31/24 03/02/25 potassium chloride 20 mEq 20 meq PO DAILY 12/31/24 03/02/25 tablet,extended release triamcinolone acetonide 0.1 % 1 applic topical BID 12/31/24 03/02/25 topical cream venlafaxine 75 mg tablet 75 mg PO BID 12/31/24 03/02/25 Allergies Allergy/AdvReac Type Severity Reaction Status Date / Time codeine Allergy Unknown Verified 03/02/25 10:50 Review of Systems Const: Denies: fever(s) or chills Card: Denies: chest pain Resp: Denies: dyspnea GI: Denies: abdominal pain : Denies: dysuria, urinary frequency or urinary urgency Musc: Denies: neck pain or back pain Skin/Breast: Denies: rash PFSH ED PFSH: Social History Smoking and tobacco/nicotine status: never used tobacco/nicotine Physical Exam Const: COMMON NORMALS: no acute distress GENERAL APPEARANCE: cooperative and comfortable ORIENTATION/CONSCIOUSNESS: Yes awake, Yes oriented to person, Yes oriented to place and Yes oriented to time HENMT: COMMON NORMALS: normocephalic, atraumatic and hearing grossly normal bilaterally HEAD & SCALP: normocephalic and atraumatic Resp: COMMON NORMALS: normal respiratory effort, No retractions, No use of accessory muscles and clear to auscultation bilaterally AUSCULTATION: clear to auscultation bilaterally Cardio: COMMON NORMALS: regular rate, regular rhythm and No murmurs present (Cardio) RATE: regular rate RHYTHM: regular rhythm GI: COMMON NORMALS: Soft to palpation and No hepatosplenomegaly present AUSCULTATION: Yes normoactive bowel sounds PALPATION: Yes Soft to palpation, No Tenderness to palpation present (GI), No Guarding due to palpation present (GI) and Yes No hepatosplenomegaly present Extremity: COMMON NORMALS: normal to inspection, capillary refill normal, no clubbing, cyanosis or edema, no calf tenderness and no pedal edema Neuro: SENSORIUM/ORIENTATION: Yes oriented to person, Yes oriented to place and Yes oriented to time Skin: COMMON NORMALS: no rashes or lesions noted GENERAL SKIN EXAM: no rashes or lesions noted Course Vital Signs: Vital signs: Vital Signs Temperature 98.4 F 08/16/25 09:23 Pulse Rate 67 08/16/25 13:53 Respiratory Rate 16 08/16/25 13:53 Blood Pressure 182/83 08/16/25 13:53 Pulse Oximetry 95 08/16/25 13:53 Oxygen Delivery Me thod Room Air 08/16/25 13:53 MDM - General Adult Medical Decision Making No acute findings on labs. Cardiac enzymes negative EKG unremarkable. There is some slight inflammation around the sphenoid sinus but I would not recommend treatment for this at this time think it may actually complicate matters as far as her altered mental status by adding another medication. No clear indication for it at this time. Suspect she does have some cognitive dysfunction is likely worsening exacerbated by her underlying Parkinson's. Otherwise no acute findings will discharge back to the intermediate staff did call Medical Records I reviewed the patient's medical records. Lab Data I reviewed the patient's lab results. 08/16/25 09:52 08/16/25 09:52 Radiology Impressions Chest X-Ray 08/16/25 09:24 IMPRESSION: 1. There are no acute chest findings. Essentially stable appearance of the chest compared with yesterday's examination. 2. Probable prominent hiatal hernia. Head CT 08/16/25 11:32 IMPRESSION: 1. No evidence of intracranial hemorrhage or mass effect. 2. Slight sphenoid sinusitis. 3. No acute intracranial findings. Laboratory Results WBC 5.31 10^3/uL (3.29-11.43) 08/16/25 09:52 RBC 4.11 10^6/uL (3.85-5.65) 08/16/25 09:52 Hgb 12.30 g/dL (11.27-16.99) 08/16/25 09:52 Hct 38.9 % (36-47) 08/16/25 09:52 MCV 94.6 fl (85-98) 08/16/25 09:52 MCH 29.9 pg (27-33) 08/16/25 09:52 MCHC 31.6 g/dL (30-55) 08/16/25 09:52 RDW 13.2 % (12.1-15.1) 08/16/25 09:52 Plt Count 221 10^3/cmm (157-399) 08/16/25 09:52 MPV 9.9 fL (7.4-10.4) 08/16/25 09:52 Neut % (Auto) 52.5 % 08/16/25 09:52 Lymph % (Auto) 39.0 % 08/16/25 09:52 [place] % (Auto) 6.0 % 08/16/25 09:52 Eos % (Auto) 1.9 % 08/16/25 09:52 Baso % (Auto) 0.4 % 08/16/25 09:52 Neut # (Auto) 2.79 10^3/uL (1.8-7.7) 08/16/25 09:52 Lymph # (Auto) 2.1 10^3/uL (0.8-4.8) 08/16/25 09:52 [place] # (Auto) 0.3 10^3/uL (0.2-0.9) 08/16/25 09:52 Eos # (Auto) 0.1 10^3/uL (0.0-0.8) 08/16/25 09:52 Baso # (Auto) 0.0 10^3/uL (0.0-0.1) 08/16/25 09:52 Nucleated RBC % (auto) 0 % 08/16/25 09:52 Nucleated RBCs # 0.0 /100WBC 08/16/25 09:52 Sodium 139 mmol/L (136-145) 08/16/25 09:52 Potassium 4.0 mmol/L (3.5-5.1) 08/16/25 09:52 Chloride 102 mmol/L (98-107) 08/16/25 09:52 Carbon Dioxide 25 mmol/L (22-29) 08/16/25 09:52 Anion Gap 16.0 (5-19) 08/16/25 09:52 BUN 20 mg/dL (8-23) 08/16/25 09:52 Creatinine 0.7 mg/dL (0.5-0.9) 08/16/25 09:52 GFR Calculation Not Reportable 08/16/25 09:52 Glucose 93 mg/dL (65-115) 08/16/25 09:52 Calculated Osmolality 290 mOsm/kg (285-295) 08/16/25 09:52 Calcium 9.7 mg/dL (8.5-10.5) 08/16/25 09:52 Total Bilirubin 0.6 mg/dL (0.15-1.2) 08/16/25 09:52 AST 18 U/L (0-32) 08/16/25 09:52 ALT 21 U/L (0-33) 08/16/25 09:52 Alkaline Phosphatase 74 U/L (35-105) 08/16/25 09:52 Troponin T Baseline 11 ng/L (0-10) H 08/16/25 09:52 Troponin T 120 Minute 11.71 ng/L (0-10) H 08/16/25 11:46 Delta Troponin T 0.71 ABS# (0-10) 08/16/25 11:46 Total Protein 7.4 g/dL (6.6-8.7) 08/16/25 09:52 Albumin 4.0 g/dL (3.5-5.2) 08/16/25 09:52 Globulin 3.4 g/dL (1.3-4.6) 08/16/25 09:52 Urine Color Yellow (Yellow) 08/16/25 10:46 Urine Appearance Clear (CLEAR) 08/16/25 10:46 Urine pH 7.0 (5-7) 08/16/25 10:46 Ur Specific [place] 1.017 (1.005-1.030) 08/16/25 10:46 Urine Protein Negative (Negative) 08/16/25 10:46 Urine Glucose (UA) Negative (Normal) 08/16/25 10:46 Urine Ketones Negative (Negative) 08/16/25 10:46 Urine Blood Negative (Negative) 08/16/25 10:46 Urine Nitrate Negative (Negative) 08/16/25 10:46 Urine Bilirubin Negative (Negative) 08/16/25 10:46 Urine Urobilinogen 0.2 mg/dL (Negative) 08/16/25 10:46 Ur Leukocyte Esterase Negative (Negative) 08/16/25 10:46 Amorphous Sediment Not Reportable 08/16/25 10:46 All radiology interpretation(s) finalized by discharge Discharge Plan Discharge Patient Disposition: Home Clinical Impression: Cognitive decline Condition: Stable Prescriptions: No Action venlafaxine 75 mg Tablet 75 mg PO BID hydrocodone-acetaminophen 5-325 mg Tablet 1 tab PO Q8H PRN (Reason: Pain) olanzapine 2.5 mg Tablet 2.5 mg PO DAILY acetaminophen 500 mg Tablet 1,000 mg PO Q8H PRN (Reason: Pain) triamcinolone acetonide 0.1 % Cream 1 applic TOPICAL BID Rx Instructions: apply a thin layer to affected area topically twice daily carbidopa-levodopa 10-100 mg Tablet 1 tab PO TID nystatin 100,000 unit/gram Powder 1 applic TOPICAL Q4H Rx Instructions: APPLY TO ABDOMINAL FOLD OR UNDERSIDE OF EACH BREAST EVERY 4 HOURS NEEDED FOR YEAST/REDNESS Eliquis 5 mg Tablet 5 mg PO BID potassium chloride 20 mEq Tablet Extended Release 20 meq PO DAILY Discharge Orders: Discharge ED (Routine); Ordered 08/16/25 Ordered By: Michele Brown Referrals: Giuseppe Torres MD [Primary Care Provider, Family Practice] Discharge Diet: Usual diet Discharge Activity: Increase activity as tolerated Patient Instructions: Opioid Safety, Pain Management, Patient Portal & Kassi Instructions Activity Restrictions/Additional Instructions: Thank you for choosing [facility] for your healthcare needs today. It is very important that you follow up as instructed or that you return to the Emergency Department should you have concerns or if your condition changes or worsens in any way. Emergency department visits are focused on emergent conditions, in some cases you may require further evaluation on an outpatient basis. You were seen in the emergency room with concerns about altered mental status. Laboratory evaluation was normal. CT did not show any acute changes there was a question of a sphenoid sinusitis however given lack of symptoms did not recommend treatment at this time as medications for this may actually confuse the picture more. We have called to the intermediate regarding recent change in medications the only thing they could site was of finishing the antibiotics for bladder infection repeat urinalysis was negative. Your symptoms had improved some after your family arrived in the emergency room. At this time there is nothing acute to admit for suspected some of this may be related to your chronic underlying illness as well as some cognitive decline. Continue your current medications and follow-up with your primary care doctor. (Please note that included in your discharge packet is information concerning opioid safety and pain management. This information is given to all patients were discharged from the ER regardless of their discharge diagnosis or the medicines they usually take or are prescribed.) Print Language: Wallisian Coding Level of Care Code ED Automation Specialist for Rachel Nelson
--- NOTE | 2025-08-16 10:02 | ECG_ITS ---
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 Measurements Intervals [place] Rate: 62 P: 22 TX: 165 QRS: 24 QRSD: 86 T: 90 QT: 407 QTc: 415 Interpretive Statements SINUS RHYTHM POSSIBLE INFERIOR MYOCARDIAL INFARCTION , PROBABLY OLD [30 ms Q WAVE IN II/aVF] Compared to ECG 08/15/2025 18:30:23 Myocardial infarct finding now present Electronically Signed On 08-16-2025 15:34:07 CDT by Alexi Resendez M.D. [email or web address]
[2025-08-16 10:06] LABS: Hematocrit 38.9 % (36-47); Hemoglobin 12.30 g/dL (11.27-16.99); Mean Corpuscular HGB Conc 31.6 g/dL (30-55); Mean Corpuscular Hemoglobin 29.9 pg (27-33); Mean Corpuscular Volume 94.6 fl (85-98); Nucleated Red Blood Cells % 0 %; Platelet Count 221 10^3/cmm (157-399); Red Blood Count 4.11 10^6/uL (3.85-5.65); White Blood Count 5.31 10^3/uL (3.29-11.43)
[2025-08-16 10:23] LABS: Alanine Aminotransferase 21 U/L (0-33); Albumin Level 4.0 g/dL (3.5-5.2); Alkaline Phosphatase 74 U/L (35-105); Anion Gap 16.0 (5-19); Aspartate Amino Transferase 18 U/L (0-32); Blood Urea Nitrogen 20 mg/dL (8-23); Calcium 9.7 mg/dL (8.5-10.5); Carbon Dioxide 25 mmol/L (22-29); Chloride 102 mmol/L (98-107); Globulin 3.4 g/dL (1.3-4.6); Glucose 93 mg/dL (65-115); Osmolality Calculated 290 mOsm/kg (285-295); Potassium 4.0 mmol/L (3.5-5.1); Sodium 139 mmol/L (136-145); Total Protein 7.4 g/dL (6.6-8.7)
--- OUTSIDE RECORDS SUMMARY | 2025-08-16 10:39 | XMS_ITS | Patient Health Record ---
Author Organization [facility] Address [address] [facility] [place] [id number] Care Team Providers Care Patient Intake Coordinator Name Role Phone Non [facility] Provider, Provider Primary Care P migel Unavailable [address] Unavailable [phone] Reason For Referral No Information Immunizations Vaccine Route Administration Date Status Comme nts Coronavirus Moderna Bivalent Booster 18 & older IM Intramuscular 08/16/2022 Administered Plan Of Treatment No Information
--- OUTSIDE RECORDS SUMMARY | 2025-08-16 10:39 | XMS_ITS | CCD ---
Author Name Interface, [id number] lity Address [address] [place] [id number] [facility] Address [address] [place] [id number] Care Team Providers Care Marketing Mgr Name Role Phone Alexey ORONA, Melvin Unavailable Unavailable Allergies and Adverse Reactions Medication/Group Name Reaction Severity Date codeine 03/29/2021 latex 03/29/2021 hydrocodone 03/29/2021 Reason for Visit NEW PATIENT Medications Date Name Route Dose Frequency Instructions Start Date End Date Status Fill Status Indication 03/28 Dabigatran Oral PO BID active 03/29 Multivitam ins Oral Tablet PO daily active 03/29 Cholecalci ferol Oral PO daily active 03/28 Atorvastat in Oral PO HS active 03/28 Venlafaxin e Oral PO BID active 03/28 Memantine Oral PO BID active 03/28 Lisinopril Oral PO DAILY active Problems Diagnosis Status Date of Diagnosis Resolution Date Pulmonary embolism (disorder) Active Social History Date Name Value 03/05/2021 Sex Female
--- OUTSIDE RECORDS SUMMARY | 2025-08-16 10:39 | XMS_ITS | Data Portability ---
Author Organization [facility] Lisa Bird [facility] Address [address] [place] [address] Care Team Providers Care Film Technician Name Role Phone KELY TORRES Primary Care Provider Assessment Encounter Date Assessment Date Assessment LastModified by Organization Details LastModified Time 06/10/2025 06/10/2025 Check routine labs today. No medication changes at this time. [email or web address] Not available 06/16/2025 11:51:08 07/29/2025 07/29/2025 An 89-year-old female with a history of blood clots presenting with leg swelling. Examination showed no indication of current blood clots, with negative findings for redness, warmth, and Chary's signs bilaterally. [email or web address] Not available 07/31/2025 11:09:43 Plan of Treatment Reminders Order Date Submit Date Provider Last Modified By Organization Details Last Modified Time Details Appointments None recorded. Lab None recorded. Referral neurologist referral 2023 024 [place] [id number] 2 [facility], [address] [place] [address], [address], 08:58:45 Procedures None recorded. Surgeries None recorded. Imaging None recorded. Medication Orders tramadol 50 mg tablet 2024 025 [facility], [address], [address], [address], 15:36:55 tramadol 50 mg tablet 2024 025 [facility], [address], [address], [place], [address], 5 16:38:14 carbidopa 10 mg-levodopa 100 mg tablet 2024 025 [facility], [address], [address], [place], [address], 5 15:44:10 triamcinolo ne acetonide 0.1 % topical cream 2023 024 [facility], [address], [address], [place], [address], 4 14:01:38 Patient TargetsNo targets recorded. Patient Instructions Encounter Date Encounter Id Patient Instructions Last Modified By Organization Details Last Modified Time 07/29/2025 [id number] - Keep your legs elevated when possible. - Use compression stockings daily. - Watch for any new redness, warmth, or increased swelling, and let me know if these occur. [email or web address] Not available 07/29/2025 14:03:20 I communicated t o the patient and the staff that there was no current evidence of blood cots in the legs during examination. I recommended conservative measures, such as leg elevation and use of compression stockings, to alleviate the swelling. We discussed the importance of monitoring for any changes like redness, warmth, or increased swelling, which would warrant immediate attention. [email or web address] Not available 07/31/2025 11:10:30 Reason for Referral Neurologist Referral for Par kinsonism Referring Physician: Kely Torres, Family Medicine, Encounter Date: 08/06/2024 Results Created Date Observation Date Name Description Value Unit Range Abnormal Flag Note LastModifiedBy Organization Detail LastModifiedTime Result Notes None recorded. Problems Name Problem SNOMED Code Status Onset Date Resolution Date Notes Provider Name and Address Organization Details Recorded Time Major depressive disorder 224760099 Active 2023 DEANNA zendejas [facility] 4 20:13:50 Essential hypertensio n 02732835 Active 2023 Kely Torres MD [address] [place] [address], [address], [facility] 5 11:09:53 Bilateral carotid artery occlusion 467564117 Active 2023 DEANNA zendejas [facility] 4 20:16:40 Parkinsonis m 10361128 Active 2023 Kely Torres MD [address] [place] [address] 5, [facility] 5 10:52:11 Abnormal posture 45203762 Active 2023 Kely Torres MD [address] [place] [address] 5, [facility] 5 10:50:11 Nummular eczema 74881538 Active 2023 Kely Torres MD [address] [place] [address] 5, [facility] 5 10:52:04 Dementia with behavioral disturbance 1435402314693 Active 2023 Kely Torres MD [address] [place] [address] 5, [facility] 5 10:51:49 Hyperlipide tony 24925062 Active 2023 Kely Torres MD [address] [place] [address] 5, [facility] 5 10:51:56 Chronic kidney disease 559859086 Active 2023 Kely Torres MD [address] [place] [address] 5, [facility] 5 10:50:29 Abnormal gait 26972005 Active 2023 Kely Torres MD [address] [place] [address] [place], [phone], [facility] 5 10:50:08 Chronic pain 25461565 Active 2024 Kely Torres MD [address] [place] [address], [address], [facility] 5 10:51:19 Atrial fibrillatio n 46882527 Active 2024 Kely Torres MD [address] [place] [address], [phone], [facility] 5 10:54:36 Bilateral lower limb edema 232707866 Active 2024 Kely Torres MD [address] [place] [address], [phone], [facility] 5 11:09:37 Problem Notes None recorded. Medical Equipment None Reported. Allergies Allergen ID Allergen Name Allergen Category Reaction Reaction Severity Criticality Documentation Date Start Date Code Code System Note Provider Name and Address Organization Details Recorded Time 27945 codeine medicatio n Not available Not available low 07/02/2024 2670 RxNorm [facility] 4 20:11:05 Medications Name Sig Start Date Stop Date Status Note LastModified by Organization Details LastModified Time acetamino phen 325 mg tablet Take 2 tablets every 6 hours by oral route as needed. 02/11 completed For headache , pain or fever Not Available Not Available Not Available atorvasta tin 20 mg tablet TAKE ONE TABLET BY MOUTH AT BEDTIME 02/11 completed Not Available Not Available Not Available venlafaxi ne 75 mg tablet Take 1 tablet twice a day by oral route. active Not Available Not Available No t Available ketoconaz ole 2 % shampoo APPLY TO THE AFFECTED AREA(S) LATHER LEAVE IN PLACE FOR FIVE MINUTES THEN RINSE OFF WITH WATER ONCE DAILY 02/11 completed Not Available Not Available Not Available hydrocodo ne 5 mg-acetam inophen 325 mg tablet TAKE ONE TABLET BY MOUTH EVERY 8 HOURS NEEDED 2024 active Not Available Not Available Not Avai lable lisinopri l 20 mg tablet TAKE ONE TABLET BY MOUTH EVERY DAY 08/09 completed Not Available Not Available Not Available potassium chloride ER 10 mEq tablet,ex tended release TAKE ONE TABLET BY MOUTH EVERY DAY 02/11 completed Not Available Not Available Not Available olanzapin e 2.5 mg tablet Take 2 tablets every day by oral route at bedtime. active Not Available Not Available No t Available tramadol 50 mg tablet TAKE ONE TABLET BY MOUTH AT BEDTIME 2024 active Not Available Not Available Not Avai lable acetamino phen 500 mg tablet Take 2 tablets every 8 hours by oral route as needed. active pain Not Available Not Available No t Available triamcino lone acetonide 0.1 % topical cream APPLY A THIN LAYER TO THE AFFECTED AREA(S) BY TOPICAL ROUTE 2 TIMES PER DAY active Not Available Not Available No t Available Macrobid 100 mg capsule Take 1 capsule every 12 hours by oral route for 5 days. 03/16 completed Not Available Not Available Not Available potassium chloride ER 20 mEq tablet,ex tended release(p art/cryst ) 02/11 completed Not Available Not Available Not Available lisinopri l 10 mg tablet 02/11 completed Not Available Not Available Not Available carbidopa 10 mg-levodo pa 100 mg tablet Take 2 tablets 3 times a day by oral route for 90 days. 2024 active Not Available Not Available Not Avai lable nystatin 100,000 unit/gram topical powder active Not Available Not Available Not Available amoxicill in 875 mg-potass ium clavulana te 125 mg tablet 02/11 completed Not Available Not Available Not Available memantine 10 mg tablet 08/09 completed Not Available Not Available Not Available memantine 5 mg tablet TAKE ONE TABLET BY MOUTH TWICE DAILY 02/11 completed Not Available Not Available Not Available nystatin (bulk) 100 million unit powder active apply to abdomina l fold and under each breast every 4 hours as needed for yeast or redness Not Available Not Available Not Available Eliquis 5 mg tablet Take 1 tablet twice a day by oral route. active Not Available Not Available No t Available potassium chloride ER 20 mEq tablet,ex tended release Take 1 tablet every day by oral route. active Not Available Not Available No t Available Vitals Date Recorded Oxygen saturation Oxygen saturation in Arterial blood by Pulse oximetry Heart rate Respiratory rate Body temperature Systolic And Diastolic Provider Name and Address Organization Details Last Updated DateTime 5 96 % 96 % 68 /min 18 /min 98.3 [degF] 180/96 mm[Hg] Kely Torres MD [address] [place] [address], [address], [facility] 5 10:44:35 Date Recorded Oxygen saturation Oxygen saturation in Arterial blood by Pulse oximetry Heart rate Respiratory rate Body temperature Systolic And Diastolic Provider Name and Address Organization Details Last Updated DateTime 5 95 % 95 % 78 /min 18 /min 98.1 [degF] 143/75 mm[Hg] Kely Torres MD [address] [place] [address], [address], [facility] 5 19:48:50 Date Recorded Oxygen saturation Oxygen saturation in Arterial blood by Pulse oximetry Heart rate Respiratory rate Body temperature Body weight Systolic And Diastolic Provider Name and Address Organization Details Last Updated DateTime 5 95 % 95 % 76 /min 17 /min 98.1 [degF] 09385.4 9 g 161/76 mm[Hg] Kely Torres MD [address] [place] [address], [phone], [facility] 5 11:38:52 Date Recorded Oxygen saturation Oxygen saturation in Arterial blood by Pulse oximetry Heart rate Respiratory rate Body temperature Systolic And Diastolic Provider Name and Address Organization Details Last Updated DateTime 5 96 % 96 % 89 /min 22 /min 98.1 [degF] 174/84 mm[Hg] Kely Torres MD [address] [place] [address], [address], [facility] 5 11:05:57 Date Recorded Oxygen saturation Oxygen saturation in Arterial blood by Pulse oximetry Heart rate Respiratory rate Body temperature Systolic And Diastolic Provider Name and Address Organization Details Last Updated DateTime 4 94 % 94 % 93 /min 20 /min 98.2 [degF] 130/82 mm[Hg] Kely Torres MD [address] [place] [address], [phone], [place] [facility] 4 12:08:11 Social History Question Answer Notes LastModified by Organizat ion Details LastModified Time Is Blood Transfusion Acceptable In An Emergency? No Information not available 07/02/2024 What Is Your Code Status? Full Code Information not available 07/02/2024 Do You Have A Directive To Physicians? No Information not available 07/02/2024 Do You Have A Medical Power Of Care Specialist? Yes Information not available 07/02/2024 Do You Have An Out Of Hospital DNR? No Information not available 07/02/2024 Sex: Unknown Functional Status None recorded. Mental Status None recorded. Family History Nothing Reported. Medical History No medical history recorded. Gynecological HistoryNo gynecological history recorded. Obstetrics History GPAL:G 0 P 0 0 0 0 Past Encounters Encounter ID Performer Location Encounter Start Date Encounter Closed Date Diagnosis/Indication Diagnosis SNOMED-CT Code Diagnosis ICD10 Code Diagnosis IMO Codes Diagnosis Note [id number] Kely Torres MD [facility] ([facility]) [address] [place] [phone] 07/16/2024 11:24:16 07/19/2024 11:45:25 Parkinsonism 43896472 G20.C Patient does have some mild exam findings that could be consistent with Parkinson' s disease. Will discuss with patient and family and see if they would like to proceed with neurology evaluation . Abnormal posture 3583758 2 R29.3 The patient does have a shuffling gait with abnormal posture likely secondary to scoliosis and back issues. Patient may benefit from some physical therapy to work on posture and gait. [id number] Kely Torres MD [facility] ([facility]) [address] [place] [phone] 08/06/2024 13:23:24 08/06/2024 17:24:21 Abnormal posture 03584905 R29.3 Continue with physical therapy evaluation and treatment. Will order a and place in the chair that will allow cushion on the left side to help with a more upright posture especially when eating. Parkinsonism 13490603 G2 0.C Patient does have some mild exam findings that could be consistent with Parkinson' s disease. Will discuss with patient and family and see if they would like to proceed with neurology evaluation . Dysuria 69069475 R30.0 The daughter is concerned about some dysuria so we will obtain UA and culture. Nummular eczema 60369975 L30.0 Dry patch appears to be eczematous in nature. Will provide steroid cream to use on the lesion twice daily until resolved. Dementia w ith behavioral disturbance 3291576169 103 F01.B18 Essential hypertension 85774271 I10 Major depr essive disorder 652232193 F32.9 Hyperlipidemia 68604678 E78.2 Chronic ki dney disease 888363650 N18.2 Abnormal gait 67187074 R 26.9 Need for [facility] assistance [id number] 7599321 Z74.1 [id number] Kely Torres MD [facility] ([facility]) [address] [place] [phone] 12/31/2024 12:59:59 01/04/2025 14:17:28 Parkinsonism 07799253 G20.C . Will proceed with increasing the carbidopa levodopa to 2 tabs 3 times daily. Chronic pain 33508416 G8 9.29 Start tramadol at night. Hypertensi ve emergency 2592564268 94275 I16.1 Patient is not quite acting like her self and has had severe elevations in her blood pressure. We will send the patient to the ER via EMS for further evaluation . [id number] Kely Torres MD [facility] ([facility]) [address] [place] [phone] 04/01/2025 13:22:27 04/06/2025 10:41:53 Chronic pain 80707980 G89.29 Patient is doing well with tramadol at night. Essential hypertension 44307607 I10 Continue current blood pressure medication . Major depr essive disorder 424891469 F32.9 Patient has been tolerating venlafaxin e and there are no concerns today. Parkinsonism 45916427 G2 0.C Patient appears to be doing fairly well with the carbidopa and levodopa Abnormal gait 79520492 R 26.9 [id number] Kely Torres MD [facility] ([facility]) [address] [place] [phone] 06/10/2025 08:50:34 06/17/2025 08:48:37 Major depressive disorder 651156615 F32.9 Patient has been tolerating venlafaxin e and there are no concerns today. Essential hypertension 35950109 I10 Pressure is elevated today. Recommend monitoring blood pressure over the next week and see if it continues to be persistent ly elevated. Atrial fibrillation 4943 6004 I48.91 No bleeding issues on Eliquis. No significan t concerns at this time. Chronic ki dney disease 463421818 N18.2 We will check labs. Parkinsonism 06790619 G2 0.C Patient appears to be doing fairly well with the carbidopa and levodopa Dementia w ith behavioral disturbance 2254970039 103 F01.B18 Stable and not currently having any behavioral concerns. Chronic pain 32939158 G8 9.29 Patient is doing well with tramadol at night. Nummular eczema 72419600 L30.0 Managed with triamcinol one as needed. Abnormal gait 98834756 R 26.9 Continue to utilize walker. Abnormal posture 9164853 2 R29.3 [id number] Kely Torres MD [facility] ([facility]) [address] [place] [phone] 07/29/2025 13:08:21 08/02/2025 13:37:21 Bilateral lower limb edema 328481214 R60.0 6443770 Leg Swelling: - Suggest leg elevation and using compressio n stockings. - Advise monitoring for redness, warmth, or unilateral swelling. Essential hypertension 98399933 I10 Pressure is elevated today. Recommend monitoring blood pressure over the next week and see if it continues to be persistent ly elevated. Health Concerns Section Related Observation LastModified by Organization Detai ls LastModified Time None Recorded Concern Status LastModified by Organization Details LastModified Time None Recorded Advance Directives Directive None Recorded Payers Insurance Date Sequence Insurance Name Policy Number Policy Delong Covered Member ID Delong Member ID Guarantor Name 07/29/2025 1 [place]ICARE [place]: [place]PS Caryn Mallory [id number] Caryn Mallory 07/29/2025 1 [employer] (MEDICARE REPLACEMENT/A DVANTAGE - HMO) [id number] Caryn Mallory [id number] Caryn Mallory 07/29/2025 1 MEDICARE [place]: [place]PS Caryn Mallory [id number] Caryn Mallory 07/29/2025 [place] - [place] - PART A - [facility] (MEDICARE) Caryn Mallory [id number] Caryn Mallory 07/29/[address] [facility] (MEDICARE SUPPLEMENT) [id number] Caryn Mallory [id number] Caryn Mallory Notes Date Note Type Note Provider Name and Address Organization Details Recorded Time 08/06/2024 text/html Is a 89-year-old female that was seen at her assisted living apartment in [facility] [place]. The daughter would like to go ahead and proceed with neurology referral for evaluation for Parkinson's disease. The daughter expresses concerns about her posture. Staff states that she leans off to the side while eating for dinner and makes it difficult. Therapy has been ordered, but the patient would benefit from pads to help with upright posture. Patient also has a dry red patch behind her right ear. The patient has had similar lesions in the past. Kely Torres MD [address] [place] [address], [phone], [facility] 08/09/2024 12:26:54 12/31/2024 text/html This is an 89-year-old female that was seen at her apartment at [facility]. Primary reason for seeing the patient was the start of a low-grade pain pill such as tramadol at night. The patient is restless and having pain at night per the daughter. Patient also is having increasing issues with her tremor. Initially the carbidopa levodopa was working well. Kely Torres MD [address] [place] [address], [phone], [facility] 01/04/2025 10:47:42 04/01/2025 text/html This is an 89-year-old female that was seen at her apartment in assisted living. Overall the patient is doing very well. The patient is tolerating her meds without difficulty. Patient needs a refill on her tramadol that she has been using at night. The patient has been tolerating it without side effects and has been helping. Patient's blood pressure is doing okay on current medications. No other patient or nursing concerns today. Kely Torres MD [address] [place] [address], [phone], [facility] 04/03/2025 19:51:27 06/10/2025 text/html This is an 89-year-old female that was seen at her apartment in assisted living for routine follow-up. Living staff stated the patient is doing fairly well. They do state that she has been having some trouble with swallowing pills and have considered crushing her pills. Patient does have some bilateral leg swelling but overall this has been stable. The patient does have a slight tremor in right hand but she has been doing well on her carbidopa/levodopa . Patient has been tolerating her medications without any issues. Kely Torres MD [address] [place] [address], [phone], [facility] 06/16/2025 11:51:30 07/29/2025 text/html ROS as noted in the HPI The patient is an 89-year-old female was seen in assisted living that presented with leg swelling. She has a history of blood clots in the legs but did not report pain or discomfort today. Her daughter raised concerns about swelling, which the patient herself had not noticed. The patient denied recent falls or associated symptoms like redness or warmth. Kely Torres MD [address] [place] [address], [phone], [facility] 07/31/2025 11:10:44 OBGyn Episode No OBEpisode recorded.
--- OUTSIDE RECORDS SUMMARY | 2025-08-16 10:39 | XMS_ITS | CCD ---
Author Name Interface, [id number] lity Address [address] [place] [address] [facility] Address [address] [place] [address] Care Team Providers Care Investigations Manager Name Role Phone Alexey ORONA, Melvin Unavailable [...]
--- OUTSIDE RECORDS SUMMARY | 2025-08-16 10:39 | XMS_ITS ---
Author Name Interface, [id number] lity Address [address] [place] [address] [facility] Address [address] [place] [address] Allergies and Adverse Reactions Medication/Group Name Reaction [...]
--- OUTSIDE RECORDS SUMMARY | 2025-08-16 10:39 | XMS_ITS | Data Portability ---
Author Organization [facility], [facility] Address [address] [place] [address] Care Team Providers Care Physicist [place] Name Role Phone SHITAL PANDEY Primary Care Provider SHITAL PANDEY Referring Provider [facility] OTHER Assessment No assessment recorded. Plan of Treatment Reminders Order Date Submit Date Provider Last Modified By Organization Details Last Modified Time Details Appointments None recorded. Lab CBC w/ auto diff 2022 023 [email or web address] [place] ([facility]), [address] [place] [address] [place], [address], 13:53:03 CMP, serum or plasma 2022 023 [email or web address] [place] ([facility]), [address] [place] [address] [place], [address], 3 13:53:03 hemoglobin A1c, QN, blood 2022 023 [email or web address] [place] ([facility]), [address] [place] [address] [place], [address], 3 17:42:31 CBC w/ auto diff 2022 023 [email or web address] [place] ([facility]), [address] [place] [address] [place], [address], 3 17:42:32 CMP, serum or plasma 2022 023 [email or web address] [place] ([facility]), [address], [place], [address], 3 17:42:32 lipid panel, serum 2022 023 [email or web address] [place] ([facility]), [address], [place], [address], 3 11:30:01 thyrotropi n, quant, blood [address] ([facility]), [address] [facility] [address] Ramesh, [place], [address], 3 17:42:32 T4, free, serum 2022 023 [email or web address] [place] ([facility]), [address], [place], [address], 3 13:24:51 pro BNP (pro B-type natriureti c peptide), serum or plasma 2022 023 [email or web address] [place] ([facility]), [address] [facility] [place], [address], 3 17:42:32 vitamin D, 25-hydroxy , total, serum 2022 023 [email or web address] [place] ([facility]), [address] [place], [address], 3 17:42:33 vitamin B1 (thiamine) , serum 2021 022 [email or web address] [place] ([facility]), [address] [place], [address], 2 12:05:39 vitamin B2 (riboflavi n), blood [address] ([facility]), [address], [place], [address], 2 12:05:39 vitamin B6 (pyridoxin e), plasma [address] ([facility]), [address], [place], [address], 2 12:05:39 zinc, serum or plasma [address] ([facility]), [address] [facility] [address] Ramesh, [place], [address], 2 12:05:39 CBC w/ auto diff [address] ([facility]), [address] [facility] [address] Ramesh, [place], [address], 2 11:45:15 CMP, serum or plasma [address] ([facility]), [address] [facility] Jorge Ramesh, [place], [address], 2 11:45:15 lipid panel, serum 2021 NOEM[place] ([facility]), [address], [place], [address], 2 14:58:16 hemoglobin A1c, QN, blood [address] ([facility]), [address] [facility] Jorge Ramesh, [place], [address], 2 11:45:15 thyrotropi n, quant, blood [address] ([facility]), [address], [place], [address], 2 11:45:16 vitamin D, 25-hydroxy , total, serum 2021 022 [email or web address] [place] ([facility]), [address], [place], [address], 2 11:45:16 Referral home health referral 2022 023 [facility], [address], [address], [place], [address], 3 17:15:46 orthopedic surgeon referral - getting XR outpatient at [facility] 2022 023 [email or web address] [facility], [address], [place], [address], 3 11:14:29 home health referral 2021 022 [place]EM[place] [facility], [address], [address], [place], [address], 2 14:15:48 physical therapist referral 2021 022 [place] [facility], [address], [address], [place], [address], 2 10:06:24 occupation al therapist referral 2021 022 [place] [facility], [address], [address], [place], [address], 2 10:05:08 Procedures None recorded. Surgeries None recorded. Imaging XR, knee, 3 view 2022 023 [email or web address] [place] ([facility] Imaging, [facility] Jorge Ramesh, [place], [address], 3 08:19:08 XR, hip, unilateral , 2 or 3 view 2022 023 [email or web address] [place] ([facility]) Imaging, [address] [place] [address] Jorge Ramesh, [place], [address], 3 08:18:53 XR, knee, 3 view - RIGHT 2022 023 [facility]) Imaging, [address] [place] [address] Jorge Ramesh, [place], [address], 3 20:39:09 XR, hip, unilateral , 2 or 3 view 2022 023 [email or web address] [place] ([facility]) Imaging, [address] [place] [address] Jorge Ramesh, [place], [address], 3 08:19:28 Medication Orders ketoconazo le 2 % shampoo 2022 023 [place] [facility], 1 [facility] [place], [id number], 3 11:58:02 Bactrim DS 800 mg-160 mg tablet 2022 023 [email or web address] [facility], [address] [place], [id number], 3 15:01:35 ceftriaxon e 1 gram solution for injection 2022 023 [email or web address] Not available 3 15:01:39 mupirocin 2 % topical ointment 2022 023 [place] [facility], 1 [facility], [place], [id number], 3 18:31:06 Patient TargetsNo targets recorded. Patient Instructions Encounter Date Encounter Id Patient Instructions Last Modified By Organization Details Last Modified Time 08/20/2022 [id number] Patient instruct ed to return to clinic [...] ambulatory lcinel Not available 08/20/2022 13:07:31 03/28/2023 [id number] Return to clinic as indicated below, any new or worsening symptoms Follow up as needed and routine annual visit Patient states understanding of treatment plan Medication side effects discussed Medication compliance discussed Patient left office independently and ambulatory Discharged home [email or web address] Not available 03/28/2023 18:22:52 04/30/2023 [id number] medicines to luis id with kidney disease: [...] condition lcinel Not available 04/30/2023 15:39:18 08/04/2023 [id number] medicines to luis id with kidney disease: [...] right knee joint getting XR outpatient at [facility] Referring Physician: Family Freda Kumar, Encounter Date: [...] uL 4.5-11 .0 1250, 08/20 Not Available [address], [address], 08/20/2022 13:59:22 08/20/20 22 08/20/2022 CBC W AUTO DIFFE RENTI AL PANEL - BLOOD erythrocytes [#/volume] in blood by automated count 3.98 10*6/ uL 4.2-5. 4 low Not Available [address], [address], 08/20/2022 13:59:22 08/20/20 22 08/20/2022 CBC W AUTO DIFFE RENTI AL PANEL - BLOOD hemoglobin [mass/volume ] in blood 12.1 g/dL 12.0-1 6.0 Not Available [address], [address], 08/20/2022 13:59:22 08/20/20 22 08/20/2022 CBC W AUTO DIFFE RENTI AL PANEL - BLOOD HCT vfr bld auto 38.3 % 36.0-4 8.0 Not Available [address], [facility] [place], [address], 08/20/2022 13:59:22 08/20/20 22 08/20/2022 CBC W AUTO DIFFE RENTI AL PANEL - BLOOD MCV [entitic volume] by automated count 96.2 fL 80-100 Not Available [address], [facility], [address], 08/20/2022 13:59:22 08/20/20 22 08/20/2022 CBC W AUTO DIFFE RENTI AL PANEL - BLOOD MCH [entitic mass] by automated count 30.4 pg 27-32 Not Available [address], [facility] [place], [address], 08/20/2022 13:59:22 08/20/20 22 08/20/2022 CBC W AUTO DIFFE RENTI AL PANEL - BLOOD MCHC [mass/volume ] by automated count 31.6 g/dL 31.0-3 7.0 Not Available [address], [facility] [place], [address], 08/20/2022 13:59:22 08/20/20 22 08/20/2022 CBC W AUTO DIFFE RENTI AL PANEL - BLOOD erythrocyte distribution width [ratio] by automated count 13.3 % 12-14. 5 Not Available [address], [facility] [place], [address], 08/20/2022 13:59:22 08/20/20 22 08/20/2022 CBC W AUTO DIFFE RENTI AL PANEL - BLOOD platelets [#/volume] in blood by automated count 227 10*3/ uL 150-45 0 1250, 08/20 Not Available [address] [place], [address], 08/20/2022 13:59:22 08/20/20 22 08/20/2022 CBC W AUTO DIFFE RENTI AL PANEL - BLOOD platelet mean volume [entitic volume] in blood by automated count 10.4 fL 9.1-13 .2 Not Available [address], [facility], [address], 08/20/2022 13:59:22 08/20/20 22 08/20/2022 CBC W AUTO DIFFE RENTI AL PANEL - BLOOD segmented neutrophils/ 100 leukocytes in blood by automated count 63.6 % 40-70 Not Available [address], [place], [address], 08/20/2022 13:59:22 08/20/20 22 08/20/2022 CBC W AUTO DIFFE RENTI AL PANEL - BLOOD lymphocytes/ 100 leukocytes in blood by flow cytometry (fc) 29.3 % 20-44 Not Available [address], [facility] [place], [address], 08/20/2022 13:59:22 08/20/20 22 08/20/2022 CBC W AUTO DIFFE RENTI AL PANEL - BLOOD monocytes/10 0 leukocytes in blood by automated count 4.9 % 2-9 Not Available [address], [facility] [place], [address], 08/20/2022 13:59:22 08/20/20 22 08/20/2022 CBC W AUTO DIFFE RENTI AL PANEL - BLOOD eosinophils/ 100 leukocytes in blood by automated count 1.8 % 0-4 Not Available [address], [facility] [place], [address], 08/20/2022 13:59:22 08/20/2017 0808/20/2022 CBC W AUTO DIFFE RENTI AL PANEL - BLOOD basophils/10 0 leukocytes in blood by automated count 0.3 % 0-1 Not Available [address], [place], [address], 08/20/2022 13:59:22 08/20/20 22 08/20/2022 CBC W AUTO DIFFE RENTI AL PANEL - BLOOD neutrophils [#/volume] in blood by automated count 4.66 10*3/ uL 1.8-7. 7 Not Available [address], [place], [address], 08/20/2022 13:59:22 08/20/20 22 08/20/2022 CBC W AUTO DIFFE RENTI AL PANEL - BLOOD lymphocytes [#/volume] in blood by automated count 2.15 10*3/ uL 0.9-4. 8 Not Available [address], [place], [address], 08/20/2022 13:59:22 08/20/20 22 08/20/2022 CBC W AUTO DIFFE RENTI AL PANEL - BLOOD monocytes [#/volume] in blood by automated count 0.4 10*3/ uL 0-0.8 Not Available [address], [place], [address], 08/20/2022 13:59:22 08/20/20 22 08/20/2022 CBC W AUTO DIFFE RENTI AL PANEL - BLOOD eosinophils [#/volume] in blood by automated count 0.13 10*3/ uL 0-0.7 Not Available [address], [place], [address], 08/20/2022 13:59:22 08/20/20 22 08/20/2022 CBC W AUTO DIFFE RENTI AL PANEL - BLOOD basophils [#/volume] in blood by automated count 0.02 10*3/ uL 0-0.2 Not Available [address], [place], [address], 08/20/2022 13:59:22 08/20/20 22 08/20/2022 CBC W AUTO DIFFE RENTI AL PANEL - BLOOD immature granulocytes [presence] in blood by automated count 0.1 % 0-0.7 Not Available [address], [facility], [address], 08/20/2022 13:59:22 08/20/20 22 08/20/2022 CBC W AUTO DIFFE RENTI AL PANEL - BLOOD immature granulocytes [#/volume] in blood 0.01 10*3/ uL 0.00-0 .06 Not Available [address], [facility] [place], [address], 08/20/2022 13:59:22 08/20/20 22 08/20/2022 COMPR EHENS SHERINE METAB OLIC 2000 PANEL - SERUM OR PLASM A glomerular filtration rate/1.73 sq M.predicted [volume rate/area] in serum, plasma or blood by creatinine-b ased formula (CKD-epi) 55.0 mL 90.0-1 20 Not Available [address], [facility] [place], [address], 08/20/2022 14:58:15 08/20/20 22 08/20/2022 COMPR EHENS SHERINE METAB OLIC 2000 PANEL - SERUM OR PLASM A glucose [mass/volume ] in serum or plasma 140 mg/dL 74-106 high Not Available [address], [facility], [address], 08/20/2022 14:58:15 08/20/20 22 08/20/2022 COMPR EHENS SHERINE METAB OLIC 2000 PANEL - SERUM OR PLASM A urea nitrogen [mass/volume ] in serum or plasma 22 mg/dL 7-17 high Not Available [address], [place], [address], 08/20/2022 14:58:15 08/20/20 22 08/20/2022 COMPR EHENS SHERINE METAB OLIC 1999 PANEL - SERUM OR PLASM A creatinine [mass/volume ] in serum or plasma 1.0 mg/dL 0.7-1. 2 Not Available [address], [place], [place], [address], 08/20/2022 14:58:15 08/20/20 22 08/20/2022 COMPR EHENS SHERINE METAB OLIC 1999 PANEL - SERUM OR PLASM A urea nitrogen/cre atinine [mass ratio] in blood 22.0 % 12-20 high Not Available [address], [place], [place], [address], 08/20/2022 14:58:15 08/20/20 22 08/20/2022 COMPR EHENS SHERINE METAB OLIC 1999 PANEL - SERUM OR PLASM A sodium [moles/volum e] in serum or plasma 141 mmol/ L 137-14 5 Not Available [address], [place], [place], [address], 08/20/2022 14:58:15 08/20/20 22 08/20/2022 COMPR EHENS SHERINE METAB OLIC 1999 PANEL - SERUM OR PLASM A potassium [moles/volum e] in serum or plasma 3.4 mmol/ L 3.5-5. 1 low Not Available [address], [place], [place], [address], 08/20/2022 14:58:15 08/20/20 22 08/20/2022 COMPR EHENS SHERINE METAB OLIC 1999 PANEL - SERUM OR PLASM A chloride [moles/volum e] in serum or plasma 106 mmol/ L 98-107 Not Available [address], [place], [address], 08/20/2022 14:58:15 08/20/20 22 08/20/2022 COMPR EHENS SHERINE METAB OLIC 2000 PANEL - SERUM OR PLASM A carbon dioxide, total [moles/volum e] in serum or plasma 30 mmol/ L 22-30 Not Available [address], [place], [address], 08/20/2022 14:58:15 08/20/20 22 08/20/2022 COMPR EHENS SHERINE METAB OLIC 2000 PANEL - SERUM OR PLASM A calcium [mass/volume ] in blood 9.5 mg/dL 8.4-10 .2 Not Available [address], [place], [address], 08/20/2022 14:58:15 08/20/20 22 08/20/2022 COMPR EHENS SHERINE METAB OLIC 2000 PANEL - SERUM OR PLASM A anion gap in serum or plasma 8.4 mmol/ L 11.0-2 0.0 low Not Available [address], [place], [address], 08/20/2022 14:58:15 08/20/20 22 08/20/2022 COMPR EHENS SHERINE METAB OLIC 2000 PANEL - SERUM OR PLASM A osmolality of serum or plasma by calculation 287 mOsm/ kg 265.85 -296.6 0 Not Available [address], [place], [address], 08/20/2022 14:58:15 08/20/20 22 08/20/2022 COMPR EHENS SHERINE METAB OLIC 2000 PANEL - SERUM OR PLASM A protein [mass/volume ] in serum or plasma 6.9 g/dL 6.3-8. 2 Not Available [address], [place], [address], 08/20/2022 14:58:15 08/20/20 22 08/20/2022 COMPR EHENS SHERINE METAB OLIC 2000 PANEL - SERUM OR PLASM A albumin [mass/volume ] in serum or plasma 3.8 g/dL 3.5-5. 0 Not Available [address], [place], [address], 08/20/2022 14:58:15 08/20/20 22 08/20/2022 COMPR EHENS SHERINE METAB OLIC 2000 PANEL - SERUM OR PLASM A albumin/glob serpl-mrto 3.1 g/dL 2.2-4. 2 Not Available [address], [place], [address], 08/20/2022 14:58:15 08/20/20 22 08/20/2022 COMPR EHENS SHERINE METAB OLIC 1999 PANEL - SERUM OR PLASM A albumin/glob ulin [mass ratio] in serum or plasma 1.20 % 1.10-2 .20 Not Available [address], [place], [address], 08/20/2022 14:58:15 08/20/20 22 08/20/2022 COMPR EHENS SHERINE METAB OLIC 1999 PANEL - SERUM OR PLASM A bilirubin.to wander [mass/volume ] in serum or plasma 0.40 mg/dL 0.2-1. 3 Not Available [address], [place], [address], 08/20/2022 14:58:15 08/20/20 22 08/20/2022 COMPR EHENS SHERINE METAB OLIC 2000 PANEL - SERUM OR PLASM A aspartate aminotransfe rase [enzymatic activity/vol ume] in serum or plasma 26 U/L 14-36 Not Available [address], [place], [address], 08/20/2022 14:58:15 08/20/2008/20/2022 COMPR EHENS SHERINE METAB OLIC 2000 PANEL - SERUM OR PLASM A alanine aminotransfe rase [enzymatic activity/vol ume] in serum or plasma 25 U/L 9-52 Not Available [address], [place], [address], 08/20/2022 14:58:15 08/20/20 22 08/20/2022 COMPR EHENS SHERINE METAB OLIC 2000 PANEL - SERUM OR PLASM A alkaline phosphatase [enzymatic activity/vol ume] in serum or plasma 71 U/L 38-126 Not Available [address], [place], [place], [address], 08/20/2022 14:58:15 08/20/20 22 08/20/2022 THYRO TROPI N [UNIT S/VOL UME] IN SERUM OR PLASM A thyrotropin [units/volum e] in serum or plasma 2.06 u[IU] /mL 0.46-4 .68 Not Available [address], [place], [address], 08/20/2022 14:58:16 08/20/20 22 08/20/2022 LIPID 1995 PNL SERPL cholesterol [mass/volume ] in serum or plasma 161 mg/dL 107-20 0 Not Available [address], [place], [address], 08/20/2022 14:58:16 08/20/20 22 08/20/2022 LIPID 1996 PNL SERPL triglyceride [mass/volume ] in serum or plasma 392 mg/dL 0-149 high Not Available [address], [place], [address], 08/20/2022 14:58:16 08/20/20 22 08/20/2022 LIPID 1996 PNL SERPL cholesterol in HDL [mass/volume ] in serum or plasma 44 mg/dL 39-61 Not Available [address], [facility] [place], [address], 08/20/2022 14:58:16 08/20/20 22 08/20/2022 LIPID 1995 PNL SERPL cholesterol in LDL [mass/volume ] in serum or plasma by calculation 39 mg/dL 0-100 Not Available [address], [facility], [place], [address], 08/20/2022 14:58:16 08/20/20 22 08/20/2022 LIPID 1996 PNL SERPL cholesterol in VLDL [mass/volume ] in serum or plasma 78.0 mg/dL Not Available [address], [facility], [place], [address], 08/20/2022 14:58:16 08/20/20 22 08/20/2022 LIPID 1995 PNL SERPL cardiac heart disease risk [ratio] in serum or plasma 3.65 [arb' U] Ather oscle rosis Risk Ratio s Men 1/2 avera ge 3.43 [place] 4.97 2x avera ge 9.55 3x avera ge 23.39 Women 1/2 avera ge 3.27 [place] 4.44 2x avera ge 7.[address] rage risk impli es a 20-25 % chanc e of devel oping CHD by age 60 Not Available [address], [facility], [place], [address], 08/20/2022 14:58:16 08/20/20 22 08/20/2022 VITAM IN D+MET ABOLI SNEHAL [MASS /VOLU ME] IN SERUM OR PLASM A vitamin D+metabolite s [mass/volume ] in serum or plasma 34.8 NG/mL 30-100 Not Available [facility], [place], [address], 08/20/2022 16:46:39 08/20/2008/20/2022 HEMOG LOBIN A1C [MASS /VOLU ME] IN BLOOD hemoglobin A1C [mass/volume ] in blood 5.7 % 0-5.99 Not Available [address], [place], [address], 08/21/2022 06:22:10 08/20/2008/20/2022 HEMOG LOBIN A1C [MASS /VOLU ME] IN BLOOD glucose mean value [mass/volume ] in blood estimated from glycated hemoglobin 117 mg/dL 65-160 Not Available [address], [place], [address], 08/21/2022 06:22:10 08/20/20 22 08/20/2022 ZINC [MASS /VOLU ME] IN SERUM OR PLASM A zinc [mass/volume ] in serum or plasma 57 ug/dL 60-130 low This test was devel oped and its jing tical perfo rmanc e magdaleno cteri stics have been deter mined by [facility] [place]. It has not been clear ed or appro fernando by the U.S. Food and Drug Admin istra tion. This assay has been valid ated pursu ant to the CLIA regul ation s and is used for clini radha purpo ses. THIS TEST WAS PERFO RMED AT: [facility] [address] [place], [place] Fernanda Turner M.D., Ph.D. ,Dire ctor of Labor atori es Not Available [address], [place], [address], 08/26/2022 07:13:11 08/20/20 22 08/20/2022 VIT B6 SERPL -SCNC pyridoxine [moles/volum e] in serum or plasma 14.8 NG/mL 2.1-21 .7 Vitam in suppl ement ation withi n 24 hours prior to blood draw may affec t the accur acy of the resul ts. This test was devel oped and its jing tical perfo rmanc e magdaleno cteri stics have been deter mined by [facility] [employer] [place], [place]. It has not been clear ed or appro fernando by the U.S. Food and Drug Admin istra tion. This assay has been valid ated pursu ant to the [employer] ation s and is used for clini radha purpo ses. THIS TEST WAS PERFO RMED AT: [facility] [address] [place], [place] Fernanda Turner M.D., Ph.D. ,Dire ctor of Labor atori es Not Available [address], [facility] [place], [address], 08/26/2022 07:53:32 08/20/20 22 08/20/2022 IDRIS INE [...] cteri stics have been deter mined by [employer]. It has not been clear ed or appro fernando by the U.S. Food and Drug Admin istra tion. This assay has been valid ated pursu ant to the CLIA regul ation s and is used for clini radha purpo ses. THIS TEST WAS PERFO RMED AT: [facility] [address] [place], [place] Fernanda Turner M.D., Ph.D. ,Dire ctor of Labor atori es Not Available [address], [address], 08/26/2022 14:38:57 08/20/2008/20/2022 VITAM IN B2 vit B2 bld ql 25.8 6.2-39 .0 Vitam in suppl ement ation withi n 24 hours prior to blood draw may affec t the accur acy of resul ts. This test was devel oped and its jing tical perfo rmanc e magdaleno cteri stics have been deter mined by [facility]. It has not been clear ed or appro fernando by the FDA. This assay has been valid ated pursu ant to the CLIA regul ation s and is used for clini radha purpo ses. Test perfo rmed by [facility] [address] [facility], [place] [address] Phone : Medic al Direc tor: ELIANE HOLLINGSWORTH M.D. Test Repor tate by Jose J Justin tomas, [facility], [address] [facility] , [place], [place] Fernanda Turner M.D., Ph.D. , Direc tor of Labor atori es , CLIA [id number] THIS TEST WAS PERFO RMED AT: [facility] [address] [place] [address] Eliane hollingsworth M.D. Not Available [address], [address], 08/29/2022 15:08:39 04/17/20 23 04/17/2023 CBC W AUTO DIFFE RENTI AL PANEL - BLOOD leukocytes [#/volume] in blood by automated count 6.9 10*3/ uL 4.5-11 .0 180, 04/17 Not Available [address], [place], [place], [address], 04/17/2023 19:09:54 04/17/20 23 04/17/2023 CBC W AUTO DIFFE RENTI AL PANEL - BLOOD erythrocytes [#/volume] in blood by automated count 4.29 10*6/ uL 4.2-5. 4 Not Available [address], [place], [address], 04/17/2023 19:09:54 04/17/20 23 04/17/2023 CBC W AUTO DIFFE RENTI AL PANEL - BLOOD hemoglobin [mass/volume ] in blood 13.0 g/dL 12.0-1 6.0 Not Available [address], [place], [address], 04/17/2023 19:09:54 04/17/20 23 04/17/2023 CBC W AUTO DIFFE RENTI AL PANEL - BLOOD HCT vfr bld auto 41.9 % 36.0-4 8.0 Not Available [address], [place], [address], 04/17/2023 19:09:54 04/17/20 23 04/17/2023 CBC W AUTO DIFFE RENTI AL PANEL - BLOOD MCV [entitic volume] by automated count 97.7 fL 80-100 Not Available [address], [place], [address], 04/17/2023 19:09:54 04/17/20 23 04/17/2023 CBC W AUTO DIFFE RENTI AL PANEL - BLOOD MCH [entitic mass] by automated count 30.3 pg 27-32 Not Available [address], [place], [address], 04/17/2023 19:09:54 04/17/20 23 04/17/2023 CBC W AUTO DIFFE RENTI AL PANEL - BLOOD MCHC [mass/volume ] by automated count 31.0 g/dL 31.0-3 7.0 Not Available [address], [place], [place], [address], 04/17/2023 19:09:54 04/17/20 23 04/17/2023 CBC W AUTO DIFFE RENTI AL PANEL - BLOOD erythrocyte distribution width [ratio] by automated count 13.0 % 12-14. 5 Not Available [address], [place], [address], 04/17/2023 19:09:54 04/17/20 23 04/17/2023 CBC W AUTO DIFFE RENTI AL PANEL - BLOOD platelets [#/volume] in blood by automated count 220 10*3/ uL 150-45 0 1808, 04/17 Not Available [address], [place], [place], [address], 04/17/2023 19:09:54 04/17/20 23 04/17/2023 CBC W AUTO DIFFE RENTI AL PANEL - BLOOD platelet mean volume [entitic volume] in blood by automated count 11.3 fL 9.1-13 .2 Not Available [address], [place], [address], 04/17/2023 19:09:54 04/17/20 23 04/17/2023 CBC W AUTO DIFFE RENTI AL PANEL - BLOOD segmented neutrophils/ 100 leukocytes in blood by automated count 52.2 % 40-70 Not Available [address], [place], [place], [address], 04/17/2023 19:09:54 04/17/20 23 04/17/2023 CBC W AUTO DIFFE RENTI AL PANEL - BLOOD lymphocytes/ 100 leukocytes in blood by flow cytometry (fc) 39.0 % 20-44 Not Available [address], [place], [address], 04/17/2023 19:09:54 04/17/20 23 04/17/2023 CBC W AUTO DIFFE RENTI AL PANEL - BLOOD monocytes/10 0 leukocytes in blood by automated count 6.2 % 2-9 Not Available [address], [place], [address], 04/17/2023 19:09:54 04/17/20 23 04/17/2023 CBC W AUTO DIFFE RENTI AL PANEL - BLOOD eosinophils/ 100 leukocytes in blood by automated count 1.9 % 0-4 Not Available [address], [place], [address], 04/17/2023 19:09:54 04/17/20 23 04/17/2023 CBC W AUTO DIFFE RENTI AL PANEL - BLOOD basophils/10 0 leukocytes in blood by automated count 0.6 % 0-1 Not Available [address], [place], [address], 04/17/2023 19:09:54 04/17/20 23 04/17/2023 CBC W AUTO DIFFE RENTI AL PANEL - BLOOD neutrophils [#/volume] in blood by automated count 3.62 10*3/ uL 1.8-7. 7 Not Available [address], [place], [address], 04/17/2023 19:09:54 04/17/20 23 04/17/2023 CBC W AUTO DIFFE RENTI AL PANEL - BLOOD lymphocytes [#/volume] in blood by automated count 2.71 10*3/ uL 0.9-4. 8 Not Available [address], [place], [address], 04/17/2023 19:09:54 04/17/20 23 04/17/2023 CBC W AUTO DIFFE RENTI AL PANEL - BLOOD monocytes [#/volume] in blood by automated count 0.4 10*3/ uL 0-0.8 Not Available [address], [place], [address], 04/17/2023 19:09:54 04/17/20 23 04/17/2023 CBC W AUTO DIFFE RENTI AL PANEL - BLOOD eosinophils [#/volume] in blood by automated count 0.13 10*3/ uL 0-0.7 Not Available [address], [place], [address], 04/17/2023 19:09:54 04/17/20 23 04/17/2023 CBC W AUTO DIFFE RENTI AL PANEL - BLOOD basophils [#/volume] in blood by automated count 0.04 10*3/ uL 0-0.2 Not Available [address], [place], [address], 04/17/2023 19:09:54 04/17/20 23 04/17/2023 CBC W AUTO DIFFE RENTI AL PANEL - BLOOD immature granulocytes [presence] in blood by automated count 0.1 % 0-0.7 Not Available [address], [place], [address], 04/17/2023 19:09:54 04/17/20 23 04/17/2023 CBC W AUTO DIFFE RENTI AL PANEL - BLOOD immature granulocytes [#/volume] in blood 0.01 10*3/ uL 0.00-0 .06 Not Available [address], [place], [address], 04/17/2023 19:09:54 04/17/20 23 04/17/2023 COMPR EHENS [...] upton.jose camargo/at oz/co ntent /gfr Not Available [address], [place], [address], 04/17/2023 19:50:02 04/17/20 23 04/17/2023 COMPR EHENS SHERINE METAB OLIC 2000 PANEL - SERUM OR PLASM A glucose [mass/volume ] in serum or plasma 93 mg/dL 74-106 Not Available [address], [place], [address], 04/17/2023 19:50:02 04/17/20 23 04/17/2023 COMPR EHENS SHERINE METAB OLIC 2000 PANEL - SERUM OR PLASM A urea nitrogen [mass/volume ] in serum or plasma 24 mg/dL 7-17 high Not Available [address], [place], [address], 04/17/2023 19:50:02 04/17/20 23 04/17/2023 COMPR EHENS SHERINE METAB OLIC 2000 PANEL - SERUM OR PLASM A creatinine [mass/volume ] in serum or plasma 0.9 mg/dL 0.7-1. 2 Not Available [address], [place], [address], 04/17/2023 19:50:02 04/17/20 23 04/17/2023 COMPR EHENS SHERINE METAB OLIC 1999 PANEL - SERUM OR PLASM A urea nitrogen/cre atinine [mass ratio] in blood 26.6 % 12-20 high Not Available [address], [place], [address], 04/17/2023 19:50:02 04/17/20 23 04/17/2023 COMPR EHENS SHERINE METAB OLIC 1999 PANEL - SERUM OR PLASM A sodium [moles/volum e] in serum or plasma 142 mmol/ L 137-14 5 Not Available [address], [place], [address], 04/17/2023 19:50:02 04/17/20 23 04/17/2023 COMPR EHENS SHERINE METAB OLIC 1999 PANEL - SERUM OR PLASM A potassium [moles/volum e] in serum or plasma 4.3 mmol/ L 3.5-5. 1 Not Available [address], [place], [address], 04/17/2023 19:50:02 04/17/20 23 04/17/2023 COMPR EHENS SHERINE METAB OLIC 1999 PANEL - SERUM OR PLASM A chloride [moles/volum e] in serum or plasma 101 mmol/ L 98-107 Not Available [address], [place], [address], 04/17/2023 19:50:02 04/17/20 23 04/17/2023 COMPR EHENS SHERINE METAB OLIC 2000 PANEL - SERUM OR PLASM A carbon dioxide, total [moles/volum e] in serum or plasma 32 mmol/ L 22-30 high Not Available [address], [place], [address], 04/17/2023 19:50:02 04/17/20 23 04/17/2023 COMPR EHENS SHERINE METAB OLIC 2000 PANEL - SERUM OR PLASM A calcium [mass/volume ] in blood 10.2 mg/dL 8.4-10 .2 Not Available [address], [place], [address], 04/17/2023 19:50:02 04/17/20 23 04/17/2023 COMPR EHENS SHERINE METAB OLIC 2000 PANEL - SERUM OR PLASM A anion gap in serum or plasma 13.3 mmol/ L 11.0-2 0.0 Not Available [address], [place], [address], 04/17/2023 19:50:02 04/17/20 23 04/17/2023 COMPR EHENS SHERINE METAB OLIC 2000 PANEL - SERUM OR PLASM A osmolality of serum or plasma by calculation 287 mOsm/ kg 265.85 -296.6 0 Not Available [address], [place], [address], 04/17/2023 19:50:02 04/17/20 23 04/17/2023 COMPR EHENS SHERINE METAB OLIC 2000 PANEL - SERUM OR PLASM A protein [mass/volume ] in serum or plasma 7.4 g/dL 6.3-8. 2 Not Available [address], [place], [address], 04/17/2023 19:50:02 04/17/20 23 04/17/2023 COMPR EHENS SHERINE METAB OLIC 2000 PANEL - SERUM OR PLASM A albumin [mass/volume ] in serum or plasma 4.4 g/dL 3.5-5. 0 Not Available [address], [place], [address], 04/17/2023 19:50:02 04/17/20 23 04/17/2023 COMPR EHENS SHERINE METAB OLIC 1999 PANEL - SERUM OR PLASM A albumin/glob serpl-mrto 3.0 g/dL 2.2-4. 2 Not Available [address], [place], [address], 04/17/2023 19:50:02 04/17/20 23 04/17/2023 COMPR EHENS SHERINE METAB OLIC 1999 PANEL - SERUM OR PLASM A albumin/glob ulin [mass ratio] in serum or plasma 1.40 % 1.10-2 .20 Not Available [address], [facility], [address], 04/17/2023 19:50:02 04/17/20 23 04/17/2023 COMPR EHENS SHERINE METAB OLIC 1999 PANEL - SERUM OR PLASM A bilirubin.to wander [mass/volume ] in serum or plasma 0.50 mg/dL 0.2-1. 3 Not Available [address], [facility], [address], 04/17/2023 19:50:02 04/17/20 23 04/17/2023 COMPR EHENS SHERINE METAB OLIC 1999 PANEL - SERUM OR PLASM A aspartate aminotransfe rase [enzymatic activity/vol ume] in serum or plasma 33 U/L 14-36 Not Available [address] [place], [address], 04/17/2023 19:50:02 04/17/20 23 04/17/2023 COMPR EHENS SHERINE METAB OLIC 2000 PANEL - SERUM OR PLASM A alanine aminotransfe rase [enzymatic activity/vol ume] in serum or plasma 35 U/L 9-52 Not Available [address] [place], [address], 04/17/2023 19:50:02 04/17/20 23 04/17/2023 COMPR EHENS SHERINE METAB OLIC 2000 PANEL - SERUM OR PLASM A alkaline phosphatase [enzymatic activity/vol ume] in serum or plasma 70 U/L 38-126 Not Available [address], [place], [address], 04/17/2023 19:50:02 04/17/20 23 04/17/2023 NATRI URETI C PEPTI DE.B PROHO RMONE N-TER LAMBERTO [MASS /VOLU ME] IN SERUM OR PLASM A natriuretic peptide.B prohormone N-terminal [mass/volume ] in serum or plasma 91.60 pg/mL 0.00-4 50.00 Not Available [address] [place], [address], 04/17/2023 19:50:02 04/17/20 23 04/17/2023 THYRO TROPI N [UNIT S/VOL UME] IN SERUM OR PLASM A thyrotropin [units/volum e] in serum or plasma 2.50 u[IU] /mL 0.46-4 .68 Not Available [address] [place], [address], 04/17/2023 19:50:03 04/17/20 23 04/17/2023 THYRO XINE (T4) FREE [MASS /VOLU ME] IN SERUM OR PLASM A thyroxine (T4) free [mass/volume ] in serum or plasma 1.12 NG/dL 0.78-2 .19 Not Available [address] [place], [address], 04/17/2023 19:50:03 04/17/20 23 04/17/2023 LIPID 1996 PNL SERPL cholesterol [mass/volume ] in serum or plasma 158 mg/dL 107-20 0 Not Available [address] [place], [address], 04/17/2023 19:50:04 04/17/20 23 04/17/2023 LIPID 1996 PNL SERPL triglyceride [mass/volume ] in serum or plasma 271 mg/dL 0-149 high Not Available [address], [place], [address], 04/17/2023 19:50:04 04/17/20 23 04/17/2023 LIPID 1996 PNL SERPL cholesterol in HDL [mass/volume ] in serum or plasma 49 mg/dL 39-61 Not Available [address], [facility] [place], [address], 04/17/2023 19:50:04 04/17/20 23 04/17/2023 LIPID 1996 PNL SERPL cholesterol in LDL [mass/volume ] in serum or plasma by calculation 55 mg/dL 0-100 Not Available [address], [facility], [place], [address], 04/17/2023 19:50:04 04/17/20 23 04/17/2023 LIPID 1996 PNL SERPL cholesterol in VLDL [mass/volume ] in serum or plasma 54.0 mg/dL Not Available [address], [facility] [place], [address], 04/17/2023 19:50:04 04/17/20 23 04/17/2023 LIPID 1996 PNL SERPL cardiac heart disease risk [ratio] in serum or plasma 3.22 [arb' U] Ather oscle rosis Risk Ratio s Men 1/2 avera ge 3.43 [place] 4.97 2x avera ge 9.55 3x avera ge 23.39 Women 1/2 avera ge 3.27 [place] 4.44 2x avera ge 7.[address] rage risk impli es a 20-25 % chanc e of devel oping CHD by age 60 Not Available [address], [place], [address], 04/17/2023 19:50:04 04/17/20 23 04/17/2023 HEMOG LOBIN A1C [MASS /VOLU ME] IN BLOOD hemoglobin A1C [mass/volume ] in blood 5.5 % 0-5.99 Not Available [address], [place], [address], 04/18/2023 02:15:54 04/17/2004/17/2023 HEMOG LOBIN A1C [MASS /VOLU ME] IN BLOOD glucose mean value [mass/volume ] in blood estimated from glycated hemoglobin 111 mg/dL 65-160 Not Available [address], [place], [place], [address], 04/18/2023 02:15:54 04/17/20 23 04/17/2023 VITAM IN D+MET ABOLI SNEHAL [MASS /VOLU ME] IN SERUM OR PLASM A vitamin D+metabolite s [mass/volume ] in serum or plasma 46.4 NG/mL 30-100 Not Available [address], [place], [address], 04/18/2023 14:29:31 08/04/2008/04/2023 CBC W AUTO DIFFE RENTI AL PANEL - BLOOD leukocytes [#/volume] in blood by automated count 6.8 10*3/ uL 4.5-11 .0 1613, 08/04 Not Available [address], [place], [address], 08/04/2023 17:16:09 08/04/20 23 08/04/2023 CBC W AUTO DIFFE RENTI AL PANEL - BLOOD erythrocytes [#/volume] in blood by automated count 4.10 10*6/ uL 4.2-5. 4 low Not Available [address], [place], [address], 08/04/2023 17:16:09 08/04/2008/04/2023 CBC W AUTO DIFFE RENTI AL PANEL - BLOOD hemoglobin [mass/volume ] in blood 12.5 g/dL 12.0-1 6.0 Not Available [address], [place], [address], 08/04/2023 17:16:09 08/04/2008/04/2023 CBC W AUTO DIFFE RENTI AL PANEL - BLOOD HCT vfr bld auto 39.9 % 36.0-4 8.0 Not Available [address], [place], [address], 08/04/2023 17:16:09 08/04/2008/04/2023 CBC W AUTO DIFFE RENTI AL PANEL - BLOOD MCV [entitic volume] by automated count 97.3 fL 80-100 Not Available [address], [place], [place], [address], 08/04/2023 17:16:09 08/04/2008/04/2023 CBC W AUTO DIFFE RENTI AL PANEL - BLOOD MCH [entitic mass] by automated count 30.5 pg 27-32 Not Available [address], [place], [address], 08/04/2023 17:16:09 08/04/2008/04/2023 CBC W AUTO DIFFE RENTI AL PANEL - BLOOD MCHC [mass/volume ] by automated count 31.3 g/dL 31.0-3 7.0 Not Available [address], [place], [address], 08/04/2023 17:16:09 08/04/2008/04/2023 CBC W AUTO DIFFE RENTI AL PANEL - BLOOD erythrocyte distribution width [ratio] by automated count 13.4 % 12-14. 5 Not Available [address], [place], [place], [address], 08/04/2023 17:16:09 08/04/2008/04/2023 CBC W AUTO DIFFE RENTI AL PANEL - BLOOD platelets [#/volume] in blood by automated count 251 10*3/ uL 150-45 0 1613, 08/04 Not Available [address], [place], [place], [address], 08/04/2023 17:16:09 08/04/2008/04/2023 CBC W AUTO DIFFE RENTI AL PANEL - BLOOD platelet mean volume [entitic volume] in blood by automated count 10.9 fL 9.1-13 .2 Not Available [address], [place], [address], 08/04/2023 17:16:09 08/04/2008/04/2023 CBC W AUTO DIFFE RENTI AL PANEL - BLOOD segmented neutrophils/ 100 leukocytes in blood by automated count 56.2 % 40-70 Not Available [address], [place], [place], [address], 08/04/2023 17:16:09 08/04/2008/04/2023 CBC W AUTO DIFFE RENTI AL PANEL - BLOOD lymphocytes/ 100 leukocytes in blood by flow cytometry (fc) 35.8 % 20-44 Not Available [address], [place], [address], 08/04/2023 17:16:09 08/04/2008/04/2023 CBC W AUTO DIFFE RENTI AL PANEL - BLOOD monocytes/10 0 leukocytes in blood by automated count 5.7 % 2-9 Not Available [address], [place], [address], 08/04/2023 17:16:09 08/04/20 23 08/04/2023 CBC W AUTO DIFFE RENTI AL PANEL - BLOOD eosinophils/ 100 leukocytes in blood by automated count 2.1 % 0-4 Not Available [address], [place], [address], 08/04/2023 17:16:09 08/04/2008/04/2023 CBC W AUTO DIFFE RENTI AL PANEL - BLOOD basophils/10 0 leukocytes in blood by automated count 0.1 % 0-1 Not Available [address], [place], [address], 08/04/2023 17:16:09 08/04/2008/04/2023 CBC W AUTO DIFFE RENTI AL PANEL - BLOOD neutrophils [#/volume] in blood by automated count 3.82 10*3/ uL 1.8-7. 7 Not Available [address], [place], [address], 08/04/2023 17:16:09 08/04/2008/04/2023 CBC W AUTO DIFFE RENTI AL PANEL - BLOOD lymphocytes [#/volume] in blood by automated count 2.44 10*3/ uL 0.9-4. 8 Not Available [address], [place], [address], 08/04/2023 17:16:09 08/04/20 23 08/04/2023 CBC W AUTO DIFFE RENTI AL PANEL - BLOOD monocytes [#/volume] in blood by automated count 0.4 10*3/ uL 0-0.8 Not Available [address], [place], [address], 08/04/2023 17:16:09 08/04/2008/04/2023 CBC W AUTO DIFFE RENTI AL PANEL - BLOOD eosinophils [#/volume] in blood by automated count 0.14 10*3/ uL 0-0.7 Not Available [address], [place], [address], 08/04/2023 17:16:09 08/04/2008/04/2023 CBC W AUTO DIFFE RENTI AL PANEL - BLOOD basophils [#/volume] in blood by automated count 0.01 10*3/ uL 0-0.2 Not Available [address], [place], [address], 08/04/2023 17:16:09 08/04/2008/04/2023 CBC W AUTO DIFFE RENTI AL PANEL - BLOOD immature granulocytes [presence] in blood by automated count 0.1 % 0-0.7 Not Available [address], [place], [address], 08/04/2023 17:16:09 08/04/2008/04/2023 CBC W AUTO DIFFE RENTI AL PANEL - BLOOD immature granulocytes [#/volume] in blood 0.01 10*3/ uL 0.00-0 .06 Not Available [address], [place], [address], 08/04/2023 17:16:09 08/04/2008/04/2023 COMPR EHENS SHERINE METAB [...] upton.jose camargo/at oz/co ntent /gfr Not Available [address], [place], [address], 08/04/2023 17:40:18 08/04/2008/04/2023 COMPR EHENS SHERINE METAB OLIC 1999 PANEL - SERUM OR PLASM A glucose [mass/volume ] in serum or plasma 112 mg/dL 74-106 high Not Available [address], [place], [address], 08/04/2023 17:40:18 08/04/20 23 08/04/2023 COMPR EHENS SHERINE METAB OLIC 2000 PANEL - SERUM OR PLASM A urea nitrogen [mass/volume ] in serum or plasma 29 mg/dL 7-17 high Not Available [address], [place], [address], 08/04/2023 17:40:18 08/04/20 23 08/04/2023 COMPR EHENS SHERINE METAB OLIC 2000 PANEL - SERUM OR PLASM A creatinine [mass/volume ] in serum or plasma 0.9 mg/dL 0.7-1. 2 Not Available [address], [place], [address], 08/04/2023 17:40:18 08/04/20 23 08/04/2023 COMPR EHENS SHERINE METAB OLIC 2000 PANEL - SERUM OR PLASM A urea nitrogen/cre atinine [mass ratio] in blood 32.2 % 12-20 high Not Available [address], [place], [address], 08/04/2023 17:40:18 08/04/20 23 08/04/2023 COMPR EHENS SHERINE METAB OLIC 1999 PANEL - SERUM OR PLASM A sodium [moles/volum e] in serum or plasma 139 mmol/ L 137-14 5 Not Available [address], [place], [address], 08/04/2023 17:40:18 08/04/20 23 08/04/2023 COMPR EHENS SHERINE METAB OLIC 1999 PANEL - SERUM OR PLASM A potassium [moles/volum e] in serum or plasma 4.0 mmol/ L 3.5-5. 1 Not Available [address], [place], [address], 08/04/2023 17:40:18 08/04/2008/04/2023 COMPR EHENS SHERINE METAB OLIC 1999 PANEL - SERUM OR PLASM A chloride [moles/volum e] in serum or plasma 101 mmol/ L 98-107 Not Available [address], [place], [address], 08/04/2023 17:40:18 08/04/2008/04/2023 COMPR EHENS SHERINE METAB OLIC 1999 PANEL - SERUM OR PLASM A carbon dioxide, total [moles/volum e] in serum or plasma 31 mmol/ L 22-30 high Not Available [address], [place], [address], 08/04/2023 17:40:18 08/04/20 23 08/04/2023 COMPR EHENS SHERINE METAB OLIC 1999 PANEL - SERUM OR PLASM A calcium [mass/volume ] in blood 11.0 mg/dL 8.4-10 .2 high Not Available [address], [place], [address], 08/04/2023 17:40:18 08/04/20 23 08/04/2023 COMPR EHENS SHERINE METAB OLIC 2000 PANEL - SERUM OR PLASM A anion gap in serum or plasma 11.0 mmol/ L 11.0-2 0.0 Not Available [address] [place], [address], 08/04/2023 17:40:18 08/04/20 23 08/04/2023 COMPR EHENS SHERINE METAB OLIC 1999 PANEL - SERUM OR PLASM A osmolality of serum or plasma by calculation 284 mOsm/ kg 265.85 -296.6 0 Not Available [address] [place], [place], [address], 08/04/2023 17:40:18 08/04/2008/04/2023 COMPR EHENS SHERINE METAB OLIC 1999 PANEL - SERUM OR PLASM A protein [mass/volume ] in serum or plasma 7.5 g/dL 6.3-8. 2 Not Available [address] [place], [address], 08/04/2023 17:40:18 08/04/2008/04/2023 COMPR EHENS SHERINE METAB OLIC 1999 PANEL - SERUM OR PLASM A albumin [mass/volume ] in serum or plasma 4.2 g/dL 3.5-5. 0 Not Available [address] [place], [address], 08/04/2023 17:40:18 08/04/2008/04/2023 COMPR EHENS SHERINE METAB OLIC 1999 PANEL - SERUM OR PLASM A albumin/glob serpl-mrto 3.3 g/dL 2.2-4. 2 Not Available [address] [place], [address], 08/04/2023 17:40:18 08/04/20 23 08/04/2023 COMPR EHENS SHERINE METAB OLIC 1999 PANEL - SERUM OR PLASM A albumin/glob ulin [mass ratio] in serum or plasma 1.20 % 1.10-2 .20 Not Available [address], [place], [address], 08/04/2023 17:40:18 08/04/20 23 08/04/2023 COMPR EHENS SHERINE METAB OLIC 1999 PANEL - SERUM OR PLASM A bilirubin.to wander [mass/volume ] in serum or plasma 0.30 mg/dL 0.2-1. 3 Not Available [address], [place], [address], 08/04/2023 17:40:18 08/04/20 23 08/04/2023 COMPR EHENS SHERINE METAB OLIC 1999 PANEL - SERUM OR PLASM A aspartate aminotransfe rase [enzymatic activity/vol ume] in serum or plasma 21 U/L 14-36 Not Available [address], [place], [address], 08/04/2023 17:40:18 08/04/20 23 08/04/2023 COMPR EHENS SHERINE METAB OLIC 1999 PANEL - SERUM OR PLASM A alanine aminotransfe rase [enzymatic activity/vol ume] in serum or plasma 19 U/L 9-52 Not Available [address], [place], [place], [address], 08/04/2023 17:40:18 08/04/20 23 08/04/2023 COMPR EHENS SHERINE METAB OLIC 1999 PANEL - SERUM OR PLASM A alkaline phosphatase [enzymatic activity/vol ume] in serum or plasma 66 U/L 38-126 Not Available [address], [place], [address], 08/04/2023 17:40:18 08/04/20 23 08/04/2023 PROCA LCITO [...] and/o r septi c shock Not Available [address], [place], [address], 08/05/2023 18:15:01 08/21/2008/21/2023 CALCI UM.IO NIZED [MOLE S/VOL UME] IN SERUM OR PLASM A BY ION-S ELECT SHERINE MEMBR ANE ELECT RODE (ISE) calcium.ioni zed [moles/volum e] in serum or plasma by ion-selectiv e membrane electrode (ise) 1.19 mmol/ L 1.12-1 .32 OBTAI DARRIN NEETU MCKEONY Not Available [address], [address], 08/21/2023 14:38:41 08/21/20 23 08/21/[address] AND CALCI UM PANEL - SERUM OR PLASM A calcium [mass/volume ] in blood 9.2 mg/dL 8.4-10 .2 Not Available [address], [address], 08/22/2023 14:25:17 08/21/2008/21/[address] AND CALCI UM PANEL - SERUM OR PLASM A parathyrin.i ntact and calcium panel - serum or plasma 168.7 pg/mL 18.4-8 1.8 high Not Available [address], [address], 08/22/2023 14:25:17 05/02/20 23 05/02/2023 XR, hip, unila teral , 2 or 3 view [facility] x - Radiol ogy [address] [place] [address] Radiol ogy Report Patien t: Ruddy MALLORY EIPEPE VELA Comple tate: [id number] Date of Servic e: 05/18 057999 MR #: [id number] /AG E/SEX: 1934 / / F Room/B ed: Locati on: RAD Access ion: [id number] Exam: Hips Bilate ral Reason : PAIN IN BILATE RAL HIPS AND KNEES Orderi ng Provid er: Shital Pandey MD Attend ing Provid er: Shital Pandey MD CC: Shital Pandey [facility]; MD Andrea Ronald Report Number :[id number] [...] Signed by: MD Andrea Ronald 1929 [email or web address] [facility] [address] [place] [address] Drive, [facility] [place], [address], 05/22/2023 08:18:53 05/02/20 23 05/02/2023 XR, knee, 3 view [facility] l Comple x - Radiol ogy [address] [place] [phone] Radiol ogy Report Patien t: Ruddy MALLORY MIRIAN Comple tate: [id number] Date of Servic e: 05/18 [id number] MR #: [id number] /AG E/SEX: 1934 / Room/B ed: Locati on: RAD Access ion: [id number] Exam: Knee Lt AP/LAT /SUNRI SE [...] 1929 Signed by: MD Andrea Ronald 1932 [facility] [address] [place] [address], [address], 05/05/2023 08:00:16 05/02/20 23 05/02/2023 XR, knee, 3 view [facility] l Comple x - Radiol ogy [address] [place] [address] [phone] Radiol ogy Report Patien t: Ruddy MALLORY Comple tate: 1600 Date of Servic e: 05/18 055340 MR #: [id number] /AG E/SEX: 1934 / Room/B ed: Locati on: RAD Access ion: [id number] Exam: Knee Rt AP/LAT /SUNRI SE [...] Signed by: MD Andrea Ronald 1934 [email or web address], [facility], [place], [phone], 05/22/2023 08:19:08 08/15/2006/23/2023 XR, chest , 1 view No observ ation record ed. [email or web address] Not Available 08/15 11:36:48 08/15/2006/23/2023 CT, head, w/o contr ast No observ ation record ed. [email or web address] Not Available 08/15 11:37:57 Result Notes Documentation Provider Name and Address Organization Details Recorded Time Xr, Hip, Unilateral, 2 Or 3 View : [facility] - Radiology [address] [place] [address] Dr, [place] [address] [phone] Radiology Report Patient: SONIA MALLORY Completed: 05/02/23 1834 Date of Service:05/02/23 MR #: [id number] /AGE/SEX:1935 / 88 / F Room/Bed: Location: RAD Exam: Hips Bilateral Reason: PAIN IN BILATERAL HIPS AND KNEES Ordering Provider: Shital Pandey MD Attending Provider: Shital Pandey MD CC: Shital Pandey; MD Andrea Ronald Report Number:[id number] Hips Bilateral: 05/02/2023 4:00 PM HISTORY: PAIN IN BILATERAL HIPS AND KNEES FINDINGS: 3 views of both hips demonstrate mild arthritic changes in the hip joint bilaterally. These findings are symmetric. The overall appearance on the right is unchanged from the April 2022 study. Lower lumbar arthritic changes are also present. Constipation also present. End of Report Dictated by: MD Andrea Ronald 05/02/231929 Cuff Setter: Jimmy Andrea MD 05/02/231929 Signed by: MD Andrea Ronald 05/02/231931 Tabitha zendejas [facility] 05/22/2023 08:18:53 Xr, Knee, 3 View : [address] , [place] [address] [phone] Radiology Report Patient: SONIA MALLORY Completed: 05/02/231833 Date of Service:05/02/23 MR #: [id number] /AGE/SEX:1935 / 88 / F Room/Bed: Location: RAD Exam: Knee Lt AP/LAT/SUNRISE Reason: PAIN IN BILATERAL HIPS AND KNEES Ordering Provider: Shital Pandey MD Attending Provider: Shital Pandey MD CC: Shital Pandey; MD Andrea Ronald Report Number:[id number] 3 views of the left knee demonstrates narrowing of the medial compartment of the knee. No effusion. No fracture. IMPRESSION: Osteoarthritic changes medial compartment left knee End of Report Dictated by: MD Andrea Ronald 05/02/231931 Cuff Setter: Jimmy Andrea MD 05/02/231931 Signed by: MD Andrea Ronald 05/02/231932 Shital Pandey MD [address] [place], [address], [facility] 05/05/2023 08:00:16 Xr, Knee, 3 View : [facility] Radiology [address] [place] [address] Dr, [place] [address] [phone] Radiology Report Patient: SONIA MALLORY Completed: 05/02/23 1600 Date of Service:05/02/23 MR #: [id number] /AGE/SEX:1935 / 88 / F Room/Bed: Location: RAD Exam: Knee Rt AP/LAT/SUNRISE Reason: PAIN IN BILATERAL HIPS AND KNEES Ordering Provider: Shital Pandey MD Attending Provider: hSital Pandey MD CC: Shital Pandey Cinel; MD Andrea Ronald Report Number:[id number] Right knee 3 views demonstrate normal patellofemoral joint. The joint space is relatively maintained, there is mild narrowing of the medial compartment. IMPRESSION: Mild arthritic changes medial compartment of the knee End of Report Dictated by: MD Andrea Ronald 05/02/231934 Cuff Setter: Jimmy Andrea MD 05/02/231934 Signed by: MD Andrea Ronald 05/02/231936 Tabitha [facility]endejas[facility]A [facility] 05/22/2023 08:19:08 Problems Name Problem SNOMED Code Status Onset Date Resolution Date Notes Provider Name and Address Organization Details Recorded Time Pneumonia 507221984 Active Not Available [facility] 4 19:34:42 COVID-19 089402073 Active Not Available [facility] 4 19:34:43 Pain of joint of pelvis and/or upper leg 772639333 Active Not Available [facility] 4 19:34:42 Swelling of right lower limb 261902531 Active Not Available [facility] 4 19:34:43 Pneumonia caused by SARS-CoV-2 4803146258524 88684 Active Not Available [facility] 4 19:34:43 Pain in lower limb 64852498 Active Not Available [facility] 4 19:34:42 Deep venous thrombosis 735358231 Active Not Available [facility] 4 19:34:42 Osteoarthr itis of bilateral hip joints 5442704674261 05 Active Not Available [facility] 4 19:34:42 Greater trochanter ic pain syndrome 1361654 Active Not Available [facility] 4 19:34:43 History of pulmonary embolus 939828350 Active 2020 Not Available [facility] 4 19:34:42 Dementia 39053735 Active 2020 Not Available [facility] 4 19:34:43 Degenerati on of cervical interverte bral disc 77511682 Active 2020 Not Available [facility] 4 19:34:43 Mixed hyperlipid emia 450510622 Active 2020 Not Available [facility] 4 19:34:42 Irritable bowel syndrome 58640025 Active 2020 Not Available [facility] 4 19:34:42 Lumbar spondylosi s 954582155 Active 2020 Not Available [facility] 4 19:34:42 Osteoarthr itis of ankle 437644154 Active 2020 Not Available [facility] 4 19:34:42 Impaired glucose tolerance 4679207 Active 2020 Not Available [facility] 4 19:34:43 Carotid artery stenosis 37928439 Active 2020 Not Available [facility] 4 19:34:43 Vitamin D deficiency 87836737 Active 2020 Not Available [facility] 4 19:34:42 Essential hypertensi on 02903943 Active 2020 Not Available [facility] 4 19:34:43 Moderate recurrent major depression 68189111 Active 2020 Not Available [facility] 4 19:34:42 Medicare annual wellness visit Active 2021 Not Available [facility] 4 19:34:43 At high risk for fall 7831921021884 83311 Active 2021 Not Available [facility] 4 19:34:43 Abnormal gait due to impairment of balance 298894370 Active 2021 Not Available [facility] 4 19:34:42 Anemia 491951309 Active 2021 Not Available [facility] 4 19:34:42 Senile asthenia 96619683 Active 2021 Not Available [facility] 4 19:34:42 Vitamin B12 deficiency (non anemic) 95650332 Active 2021 Not Available [facility] 4 19:34:43 Idiopathic peripheral neuropathy 34378883 Active 2021 Not Available [facility] 4 19:34:42 Pain of right hip joint 9912881942655 02 Active 2022 Not Available [facility] 4 19:34:42 Pain of left hip joint 9051770855857 00 Active 2022 Not Available [facility] 4 19:34:42 Pain of right knee joint 8880373565130 00 Active 2022 Not Available [facility] 4 19:34:43 Pain of left knee joint 3505509194599 07 Active 2022 Not Available [facility] 4 19:34:43 Chronic kidney disease stage 2 817341789 Active 2022 Not Available [facility] 4 19:34:43 Seborrheic dermatitis of scalp 232889640 Active 2022 Not Available [facility] 4 19:34:42 Notes:Some problems listed i n Document: #[id number] could not be added to this patient's chart. Please review this document and add these problems to the patient's chart manually as needed. Problem Notes None recorded. Procedures Surgical History Date Name Laterality Status Provider Name and Address Organization Details Recorded Time 02/25/20 07 Total Hysterectomy completed [facility] 11/29/2020 11:44:36 Cataract Surgery completed [facility] 11/29/2020 11:44:47 Tonsillectomy completed [facility] 11/29/2020 11:44:55 Imaging Results None recorded. Procedure Notes None recorded. Medical Equipment None Reported. Allergies Allergen ID Allergen Name Allergen Category Reaction Reaction Severity Criticality Documentation Date Start Date Code Code System Note Provider Name and Address Organization Details Recorded Time 022865 codeine medicatio n Not available Not available Not available 11/29/20202021 2670 RxNorm Lizet Martinez [facility] 12:50:05 900878 hydrocodo ne Not available Not available Not available Not available 11/29/2020 5489 RxNorm Tabitha zendejasNEA [facility] 11:41:37 417157 latex environme nt,medica tion Not available Not available Not available 11/29/20202021 30537 91 RxNorm Lizet Martinez [facility] 12:50:05 Medications Name Sig Start Date Stop [...] /min 20 /min 97.9 [degF] 30.8 kg/m2 28289.5 6 g 95 % 95 % 122/78 mm[Hg] Romina Gomez [facility] 3 14:29:57 Date Recorded Body height Heart rate Respiratory rate Body temperature Body mass index (BMI) Body weight Oxygen saturation Oxygen saturation in Arterial blood by Pulse oximetry Systolic And Diastolic Provider Name and Address Organization Details Last Updated DateTime 3 154.94 cm 95 /min 20 /min 98 [degF] 30.6 kg/m2 07401.9 6 g 95 % 95 % 148/80 mm[Hg] Tabitha Fei [facility] 3 15:00:53 Date Recorded Body height Body mass index (BMI) Body weight Body temperature Respiratory rate Heart rate Oxygen saturation Oxygen saturation in Arterial blood by Pulse oximetry Provider Name and Address Organization Details Last Updated DateTime 3 154.94 cm 30 kg/m2 08111.1 9 g 97.2 [degF] 20 /min 85 /min 98 % 98 % Lizet [facility] 3 14:10:18 Date Recorded Body height Heart rate Respiratory rate Body temperature Body mass index (BMI) Body weight Oxygen saturation Oxygen saturation in Arterial blood by Pulse oximetry Systolic And Diastolic Provider Name and Address Organization Details Last Updated DateTime 2 154.94 cm 85 /min 20 /min 97.5 [degF] 31.2 kg/m2 45790.7 4 g 92 % 92 % 110/64 mm[Hg] Lizet [facility] 2 13:21:24 Social History Question Answer Notes LastModified by Organizat ion Details LastModified Time Tobacco Smoking Status Former Smoker smoked 5 cigs when 20 years old, started and quit 1954 Shital Pandey MD [address] [place], [address], [facility] 08/20/2022 13:03:11 How Much Tobacco Do You Chew? None [email or web address] Information not available 11/29/2020 What Is Your Code Status? Full Code [email or web address] Information not available 11/29/2020 Are You Deaf Or Do You Have Serious Difficulty Hearing? No [email or web address] Information not available 11/29/2020 Which Illicit Or Recreational Drugs Have You Used? None [email or web address] Information not available 11/29/2020 Hard Of Hearing Or Deaf In One Or Both Ears? No [email or web address] Information not available 11/29/2020 Legally Blind In One Or Both Eyes? No [email or web address] Information not available 11/29/2020 Live Alone Or With Others? Alone [email or web address] Information not available 11/29/2020 How Often Do You Need To Have Someone Help You When You Read Instructions, Pamphlets, Or Other Written Material From Your Doctor Or Pharmacy? 3-Sometime s [email or web address] Information not available 11/29/2020 What Was The Date Of Your Most Recent Tobacco Screening? 03/28/2023 [email or web address] Information not available 03/28/2023 What Is Your Current Pack Years? 10packyear s Information not available 08/20/2022 Relationship Status [email or web address] Information not available 11/29/2020 Seat Belts Used Routinely Yes [email or web address] Information not available 11/29/2020 At What Age Did You Start Smoking Tobacco? 20 Information not available 08/20/2022 Has Tobacco Cessation Counseling Been Provided? Yes Information not available 03/28/2023 On What Date Was Tobacco Cessation Counseling Provided? 03/28/2023 [email or web address] Information not available 03/28/2023 How Many Years Have You Smoked Tobacco? 0 Information not available 08/20/2022 Sex: Unknown Functional Status Question Answer Note LastModified by Organizat ion Details LastModified Time Do you or have you ever used any other forms of tobacco or nicotine? No Information not available 08/20/2022 What is your level of alcohol consumption? None [email or web address] Information not available 11/29/2020 Are you currently employed? No [email or web address] Information not available 11/29/2020 Are you able to walk independently without assistance or assistive devices? YESWOREST [email or web address] Information not available 11/29/2020 Do you or have you ever used e-cigarettes or vape? Never used electronic cigarettes [email or web address] Information not available 11/29/2020 What is your exercise level? Moderate [email or web address] Information not available 11/29/2020 Mental Status None recorded. Family History Relationship Description Onset Age of this Age Resolved Age Notes LastModified by Organization Details LastModified Time Mother Neoplasm of liver [email or web address] Not available 11/29 11:42:17 Mother Hypertensive disorder [email or web address] Not available 05/22 15:12:48 Mother Family history of malignant neoplasm [email or web address] Not available 05/22 15:13:17 Father Myocardial infarction [email or web address] Not available 12/2020 11:42:25 Maternal Grandfather Heart disease Not available 05/22 15:12:43 Sister Diabetes mellitus [email or web address] Not available 05/22 15:12:54 Sister Dementia [email or web address] Not availab le 05/22/2021 15:13:00 Sister Depressive disorder [email or web address] Not available 05/22 15:13:07 Medical History No medical history recorded. Gynecological HistoryNo gynecological history recorded. Obstetrics History GPAL:G 6 P 0 0 0 6 Type Value Living 6 Total 6 Immunizations Vaccine Type Date Status Note Provider Nam e and Address Organization Details Recorded Time Influenza, high-dose, quadrivalent, PF 1 completed Tabitha zendejasNEA [facility] 09/18/2021 17:51:53 Influenza, high-dose, quadrivalent, PF 2 completed Tabitha zendejasNEA [facility] 08/27/2022 18:15:36 COVID-19, mRNA, LNP-S, PF, 100 mcg/0.5mL dose or 50 mcg/0.25mL dose 1 completed Not Available [facility] 12/04/2023 19:34:43 COVID-19, mRNA, LNP-S, PF, 100 mcg/0.5mL dose or 50 mcg/0.25mL dose 1 completed Not Available [facility] 12/04/2023 19:34:43 COVID-19, mRNA, LNP-S, PF, 100 mcg/0.5mL dose or 50 mcg/0.25mL dose 2 completed Not Available [facility] 12/04/2023 19:34:43 Pneumococcal conjugate PCV20, polysaccharide [id number] conjugate, adjuvant, PF 2 completed Not Available [facility] 12/04/2023 19:34:43 Pneumococcal conjugate PCV20, polysaccharide [id number] conjugate, adjuvant, PF 2 completed Not Available [facility] 12/04/2023 19:34:43 COVID-19, mRNA, LNP-S, bivalent, PF, 50 mcg/0.5 mL or 25mcg/0.25 mL dose 2 completed Not Available [facility] 12/04/2023 19:34:43 Past Encounters Encounter ID Performer Location Encounter Start Date Encounter Closed Date Diagnosis/Indication Diagnosis SNOMED-CT Code Diagnosis ICD10 Code Diagnosis IMO Codes Diagnosis Note [id number] Shital Pandey MD [facility]. [address] [place] [address] 11/29/2020 11:03:31 12/06/2020 12:12:57 Carotid artery stenosis 64449358 I65.29 Saw vascular surgeon who thought it was too risky to do surgery and at her age and with blood thinner and PE history Degenerati on of cervical intervertebral disc 50050561 M50.30 stable, uses tylenol as needed Dementia 06068892 F03.90 stable, offered neurology referral, patient and daughter declined, i recommend trial of memantine, follow up in 3 months History of pulmonary embolus 851142013 Z86.711 stable, continue pradaxa Impaired g lucose tolerance 2679215 R73.03 check a1c today Irritable bowel syndrome 01965257 K58.9 stable, not on any medication s Lumbar spondylosis 68305 0009 M47.896 stable, continue otc tylenol as needed Mixed hyperlipidemia 267 665928 E78.2 check lipid panel and continue atorvastat in 20 mg Vitamin D deficiency 347 21928 E55.9 check vit d level Osteoarthr itis of ankle 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 [facility] [place] [address] 02/28/2021 14:48:16 03/05/2021 13:13:55 Mixed hyperlipidemia 435280693 E78.2 reviewed lipid panel and continue atorvastat in 20 mg Moderate r ecurrent major depression 10479841 F33.1 stable continue venlafaxin e 25 mg bid Essential hypertension 38102525 I10 controlled , continue lisinopril 20 mg Dementia 36283039 F03.90 Daughter and patient would like to see neurologis t, i recommend increase memantine to 10 mg bid, follow up in 1 month History of pulmonary embolus 422551129 Z86.711 stable, continue pradaxa, daughter would like to know how long she has to be on pradaxa, work up unclear and etiology unclear, will request records. I recommend referral to hematology Pain in lower limb 4668140 108 M79.854 I recommend tylenol bid for pain, I recommend home health PT, if no improvemen t i counseld daughter i recommend sports medicine referral [id number] [facility] [address] [facility] [place] [address] 05/22/2021 14:41:39 05/22/2021 16:56:46 Dementia 30872962 F03.90 - will do dementia labs, MRI brain and neuropsych testing - will start Aricept 5 mg qday for 1 week and then inc to 10 mg qday, educated about side effects - educated about disease course, driving precaution s, precaution s in kitchen, - talked to family members about POA, and help available in community and home health services [id number] Marcos Mittal MD [facility]. [facility] [place] [address] 06/04/2021 14:51:19 06/05/2021 21:03:22 Toothache 12351566 K08.89 06/04/21-ons et yesterday of right lower posterior molar, no abscess noted- augmentin 875 bid x 7 days [id number] Shital Pandey MD [facility]. [address] [place], [place] [address] [place] [address] 06/21/2021 13:53:29 06/25/2021 16:39:18 Fatigue 71638521 R53.83 Dementia 19907263 F03.[address] Cerna, note reviewed says to start aricept, but i do not see in chart where it was sent in. taking memantine. Moderate r ecurrent major depression 05717654 F33.1 acute grief from sister's recent passing, I recommend increase venlafaxin e to 50 mg daily Abnormal urinalysis 1672 98767 R82.90 trace wbc and trace blood [id number] Shital Pandey MD [facility]. [address] [place], [place] [address] [place] [address] 09/04/2021 12:31:29 09/04/2021 17:39:51 [id number] Shital Pandey MD [facility]. [address] [place] [address] 09/10/2021 11:31:39 09/13/2021 12:22:19 COVID-19 608090615 U07.1 follow up after recent hospitaliz ation for covid with secondary bacterial PNA, slowly improving per patient and daughter, has home health, still very tired Community acquired pneumonia 540713349 J18.9 finished IV antibiotic s and PO antibiotic s while admitted to hospital, has home health, crackles on exam today, CXR and labs today Anemia 860294863 D64.9 Respiratory crackles 484 15058 R09.89 [id number] Shital Pandey MD [facility]. [address] [place], [place] [address] [place] [address] 09/18/2021 14:53:31 09/21/2021 16:29:36 Community acquired pneumonia 889509737 J18.9 finished IV antibiotic s and PO antibiotic s while admitted to hospital, at follow up repeat CXR showed continued opacity in left lung base with crackles on exam wiht continued fatigue and dyspnea, now patient has finished levofloxac in 750 mg daily for 5 days, feeling much better, Essential hypertension 82835538 I10 controlled , continue lisinopril 20 mg Dementia 11635870 F03.[address] Cerna, note reviewed says to start aricept, but i do not see in chart where it was sent in. taking memantine. Mixed hyperlipidemia 267 920382 E78.2 reviewed lipid panel and continue atorvastat in 20 mg Moderate r ecurrent major depression 18316617 F33.1 acute grief from sister's recent passing, I recommend increase venlafaxin e to 50 mg daily Administra tion of influenza vaccine 08849070 Z23 Anemia 939399519 D64.9 likely secondary to acute illness, was improved last check from inpatient, FIT negative, I recommend repeat cbc today [id number] Shital Pandey MD [facility]. [address] [place] [address] 10/17/2021 14:20:39 10/22/2021 07:38:51 Deep venous thrombosis of lower extremity 701976132 I82.409 seen in ED for right LE DVT, started on eliquis, I recommend continue eliquis, patient has history of previous PE. I recommend she remain on eliquis as long as she is not having falls at home or signs of bleeding Essential hypertension 60863851 I10 controlled , continue lisinopril 20 mg History of pulmonary embolus 747350657 Z86.711 Mixed hyperlipidemia 267 279213 E78.2 reviewed lipid panel and continue atorvastat in 20 mg Moderate r ecurrent major depression 31761868 F33.1 doing well, I recommend decrease venlafaxin e to 75 mg daily [id number] Shital Pandey MD [facility]. [address] [place] [address] 03/27/2022 11:53:41 03/28/2022 13:21:09 Essential hypertension 99472597 I10 taking lisinopril 20 mg, tolerating meidcation , denies side effects, continue, check labs Anemia 293726549 D64.9 check lab work Long-term drug therapy 292265741 Z79.899 At high risk for fall 45 27151646 22786814 Z91.89 Abnormal g ait due to impairment of balance 310180321 R26.89 Fatigue 11312367 R53.83 Dementia 44455524 F03.90 taking memantine 10 mg bid tolerating medicine, denies side effects. continue Vitamin D deficiency 347 89807 E55.9 check vit d level Mixed hyperlipidemia 267 512888 E78.2 taking atorvastat in 20 mg, tolerating statin, denies side effects, continue History of pulmonary embolus 711042900 Z86.711 history of PE, was on pradaxa and was stopped when thought to be high risk for falls but then had DVT within 6 months of stopping it, now on eliquis Impaired g lucose tolerance 8050042 R73.03 check a1c today [id number] Shital Pandey MD [facility]. [address] [place] [address] 08/20/2022 12:18:54 09/03/2022 14:49:29 Dementia 21307539 F03.90 taking memantine 10 mg bid tolerating medicine, denies side effects. continue Impaired mobility 949915 05 Z74.09 Senile asthenia 13443545 R54 Mixed hyperlipidemia 267 175116 E78.2 taking atorvastat in 20 mg, tolerating statin, denies side effects, continue Vitamin D deficiency 347 99011 E55.9 check vit d level Carotid ar johnathan stenosis 04633749 I65.29 Saw vascular surgeon who thought it was too risky to do surgery and at her age and with blood thinner and PE history Degenerati on of cervical intervertebral disc 23889568 M50.30 stable, uses tylenol as needed Vitamin B1 2 deficiency (non anemic) 09569931 E53.8 taking b12 orally, Long-term drug therapy 776096695 Z79.899 Administra tion of influenza vaccine 87241796 Z23 Adult heal th examination 928487605 Z00.00 Patient presented to office today for [...] and promote healthy living. Idiopathic peripheral neuropathy 65995317 G60.9 [id number] Sherry Valles APRN [facility] [address] [address] 03/28/2023 14:09:47 03/31/2023 14:48:22 Insect bite reaction 329258064 T63.481A Will treat as below. induration was marked and daughter will monitor. Take medication s as follows [id number] Shital Pandey MD [address] [place] [address] 04/17/2023 15:07:01 04/24/2023 16:13:00 Long-term drug therapy 938605999 Z79.341 [id number] Shital Pandey MD [address] [place] [address] 04/30/2023 14:31:50 05/01/2023 11:12:06 Carotid artery stenosis 46168439 I65.29 Saw vascular surgeon who thought it was too risky to do surgery and at her age and with blood thinner and PE history Dementia 73706994 F03.90 taking memantine 10 mg bid tolerating medicine, denies side effects. continue History of pulmonary embolus 171145011 Z86.711 history of PE, was on pradaxa and was stopped when thought to be high risk for falls but then had DVT within 6 months of stopping it, now on eliquis Lumbar spondylosis 14930 0009 M47.896 stable, continue otc tylenol as needed Vitamin D deficiency 347 87064 E55.9 check vit d level Degenerati on of cervical intervertebral disc 86484428 M50.30 stable, uses tylenol as needed Pain of ri ght hip joint 7196081931 95319 M25.551 bilateral knee and hip pain, patient unable to take nsaids due to bleeding risk with eliquis. I recommend XR hip jocelin and knee jocelin and Ortho referral for possible steroi injections Pain of le ft hip joint 4482526536 75951 M25.552 see above Pain of ri ght knee joint 5444024290 09680 M25.561 see above Pain of le ft knee joint 3534902902 89276 M25.562 see above Chronic ki dney disease stage 2 232274131 N18.2 Moderate r ecurrent major depression 79248539 F33.1 doing well per daughter, PHQ-9 unable to do secondary to dementia, taking venlafaxin e 75 mg bid, tolerating medication , denies side effects, continue [id number] Shital Pandey MD [address], [place] [address] 08/04/2023 13:56:12 08/12/2023 12:03:36 Dementia 47459730 F03.90 taking memantine 10 mg bid tolerating medicine, denies side effects. continue Moderate r ecurrent major depression 64839135 F33.1 doing well per daughter, PHQ-9 unable to do secondary to dementia, taking venlafaxin e 75 mg bid, tolerating medication , denies side effects, continue History of pulmonary embolus 246301734 Z86.711 history of PE, was on pradaxa and was stopped when thought to be high risk for falls but then had DVT within 6 months of stopping it, now on eliquis tolerating medication , denies side effects, continue Lumbar spondylosis 89375 0009 M47.896 stable, continue otc tylenol as needed Vitamin D deficiency 347 44014 E55.9 check vit d level Degenerati on of cervical intervertebral disc 89579631 M50.30 stable, uses tylenol as needed Carotid ar johnathan stenosis 26187878 I65.29 Saw vascular surgeon who thought it was too risky to do surgery and at her age and with blood thinner and PE history Chronic ki dney disease stage 2 742559275 N18.2 Abnormal g ait due to impairment of balance 279929413 R26.89 Essential hypertension 04725755 I10 taking lisinopril 10 mg, and potassium 10 meq, tolerating medication , denies side effects, continue, check labs Idiopathic peripheral neuropathy 20136895 G60.9 Long-term drug therapy [id number] Z79.899 Seborrheic dermatitis of scalp 053020770 L21.0 Health Concerns Section Related Observation LastModified by Organization Giuseppe ortiz LastModified Time None Recorded Concern Status LastModified by Organization Details LastModified Time None Recorded Advance Directives Directive None Recorded Payers Insurance Date Sequence Insurance Name Policy Number Policy Delong Covered Member ID Delong Member ID Guarantor Name 08/12/2023 1 [employer] (MEDICARE REPLACEMENT/A DVANTAGE - HMO) [id number] Sonia Mallory [id number] Sonia Mallory Notes Date Note Type Note Provider Name and Address Organization Details Recorded Time 2 text/html Initial and Medicare Annual Wellness Visit G0438 [id number] by Patient PT presents with daughter stating [...] days. Recommended screening:Colorectal cancer screen: not indicated [id number]: prevnar 20 done Flu vaccine: patient receives [...] when you are in a car? Yes, [id number]. How often have you been bothered from falling or being dizzy when standing up?nujcmw78. How often have you had trouble eating well?dqqimg46. How often have you been bothered by dental problems?nficmn76. How often have you been bothered by difficulty hearing?jzuibc87. Have you fallen 2 or more times [...] take them? Sometimes I take them as . How confident are you that you can control and mange most of your health problems? Not very . How much wine, beer, or other alcoholic beverages do you have? No alcohol at all Shital Pandey MD [address] [place], [address], [facility] 08/20/2022 19:15:20 3 text/html Insect [...] inch in diameter. Sherry Valles APRN [address] [place], [address], [facility] 03/28/2023 18:24:01 3 text/html pain in [...] drug therapyidiopathic peripheral neuropathy Shital Pandey MD [facility] [place], [address], [facility] 04/30/2023 15:41:37 3 text/html pt presents for follow up after being discharged from [facility] on 08/01/2023. PT was placed on K+ 10meq upon discharge from residential. PT has [facility] out for PT. PT blood pressure was changed in S, from lisinopril 20mg to 10mg. Daughter states Sonia is having a problem with lack of appetite. Pt may be havog gerdCase DescriptionDischarged from [facility] following stay from 06/23 for weakness, altered LOC/SOB/cough and fall several days ago. Tested positive for COVID. CT Head: Neg. Monitored and supportive care given. Improved and able to got to SNF per recommendation of PT/OT. Lashanda Oates, RN Account Resolution Expert Shital Pandey MD [address] [place], [address], [facility] 08/04/2023 14:56:56 OBGyn Episode No OBEpisode recorded.
--- OUTSIDE RECORDS SUMMARY | 2025-08-16 10:39 | XMS_ITS ---
Author Name Interface, [id number] lity Address [address] [place] [address] [facility] On[facility] Address [facility] [place] [address] Allergies and Adverse Reactions Plan Reason for Visit Encounters Medications Problems Vital Signs
[2025-08-16 10:48] LABS: Add Urine Microscopic? NO
[2025-08-16 10:50] LABS: Glucose Urine UA Negative (Normal); Nitrate Urine Negative (Negative); Specific Gravity, Urine 1.017 (1.005-1.030)
[2025-08-16 10:59] LABS: Charge for UA Resulting for Rev
--- NOTE | 2025-08-16 11:32 | CT_ITS ---
WS: [id number] CT HEAD TECHNIQUE: Noncontrast CT of the head obtained from the skullbase to the vertex. CLINICAL INFORMATION: Altered mental status COMPARISON: CT 08/15/2025 DLP: 959.[address] scans at [facility] use at least one of these dose optimization techniques: automated exposure control; mA and/or kV adjustment per patient size (includes targeted exams where dose is matched to clinical indication); or iterative reconstruction. FINDINGS: No evidence of intracranial hemorrhage or mass effect. Ventricular system and basal cisterns are patent. Moderate to advanced small vessel changes with moderate parenchymal volume loss. No extra-axial fluid collections. No evidence of mass or mass effect. Vascular calcification. Slight sphenoid sinusitis. Mastoid air cells are well aerated. CT/CT head wo con* [id number] IMPRESSION: 1. No evidence of intracranial hemorrhage or mass effect. 2. Slight sphenoid sinusitis. 3. No acute intracranial findings.
[2025-08-16 12:05] LABS: Troponin(5th) Baseline 11 ng/L (0-10)
[2025-08-16 12:16] LABS: Troponin 5 2HR 11.71 ng/L (0-10); Troponin 5 2HR Delta 0.71 ABS# (0-10)
--- NOTE | 2025-08-16 12:16 | ECG_ITS ---
[employer] Test Date: 2025-08-16 Pat Name: Caryn Mallory Department: Room: Gender: Female Supervisor Advice: : 1935 Requested By: Michele Fox Order Number: [id number] Vernell MD: Alexi Resendez M.D. Measurements Intervals [place] Rate: 65 P: -2 MN: 142 QRS: 23 QRSD: 82 T: 61 QT: 375 QTc: 392 Interpretive Statements SINUS RHYTHM POSSIBLE INFERIOR MYOCARDIAL INFARCTION , PROBABLY OLD [30 ms Q WAVE IN II/aVF] Compared to ECG 08/16/2025 10:02:19 No significant changes Electronically Signed On 08-16-2025 15:33:45 CDT by Alexi Resendez M.D. [email or web address]
--- NOTE | 2025-08-16 13:51 | ECG_ITS ---
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 Measurements Intervals [place] Rate: 65 P: 17 ME: 163 QRS: 24 QRSD: 82 T: 55 QT: 403 QTc: 421 Interpretive Statements SINUS RHYTHM MODERATE ST DEPRESSION [0.05+ mV ST DEPRESSION] Compared to ECG 08/16/2025 12:16:28 ST (T wave) deviation now present Myocardial infarct finding no longer present Electronically Signed On 08-16-2025 19:37:03 CDT by Alexi Resendez M.D. [id number]
[2025-08-16 13:53] VITALS: BP 182/83; PULSE 67; RESP 16; O2SAT 95
== END 2025-08-16 14:07 | disposition home or self-care (01) ==
PROVIDERS: Emergency Provider Family Medicine; PCP Family Medicine
DX: R41.81 Age-related cognitive decline (principal); Z79.01 Long term (current) use of anticoagulants
CPT/HCPCS: 36415; 70450; 71045; 80053; 81003; 84484; 85025; 93005; 99285